=== PATIENT | male | born 1945 | race Caucasian/White ===

== ENCOUNTER → 2022-02-09 | Day surgery (SDC) | payer OTHER ==
--- NOTE | 2022-02-09 11:13 | RAD REPORT ---
EXAM DESCRIPTION: US - Extremity Nonvascular Limited - 02/09/2022 10:51 am CLINICAL HISTORY: E04.1, D44.0, R05.3, Z85.71 COMPARISON: Thyroid Para Parotid Gland dated 01/15/2022 TECHNIQUE: Preprocedure ultrasound of the neck. FINDINGS: The patient was referred for ultrasound-guided fine-needle aspiration of the 4-5 cm left t hyroid lesion detected on 01/15/2022 study. Real-time pre-procedure radiologist directed ultrasound was performed. Unfortunately, in the deep pos ition of this lesion along with the patient's body habitus, precluded adequate visualization of the l esion for safe FNA procedure. This was explained to the patient in detail. IMPRESSION: The patient has left thyroid lesion is quite deep in position and could not be safely ac cessed under ultrasound-guided FNA.
== END ==
LOC: FNA 09:58
PROVIDERS: ATTEND Otolaryngology
DX: E04.1 Nontoxic single thyroid nodule (principal); D44.0 Neoplasm of uncertain behavior of thyroid gland; R05.3 Chronic cough; Z85.71 Personal history of Hodgkin lymphoma
CPT/HCPCS: 76882

== ENCOUNTER 2024-08-20 09:11 | Inpatient (IN) | payer OTHER ==
--- OUTSIDE RECORDS SUMMARY | 2024-08-20 09:14 | XMS REPORT | Clinical Summary ---
Author Name Unknown Organization [facility] Address [address] [place] [address] Care Team Providers Care Time Piece Repairer Name Role Phone Silverio Webster Unavailable [phone] Cody Perez MD Unavailable [phone] Maranda Perales MD Primary Care Provider + Felicia Avila MD Unavailable [phone] Bethany Amezcua MD Unavailable Dylan Sam MD Unavailable [phone] Allergies Active Allergy Reactions Criticality Noted Date Comments Hydrochlorothiazide Rash Medium 05/25/2017 pruritis Medications * This document contains information received from the source organization and may not represent a complete record from that organization. amLODIPine (NORVASC) 5 mg tablet Take 1 tablet (5 mg) by mouth daily. 022 Active aspirin 81 mg chewable tablet Chew and swallow 1 tablet (81 mg) by mouth daily. Active cholecalciferol, vitamin D3, 50 mcg (2,000 unit) capsule Take 1 capsule by mouth daily. Active glucosamine HCl 750 mg tab Take 1 tablet by mouth twice daily. Active levothyroxine (SYNTHROID, LEVOTHROID) 100 mcg tablet Take 88 mcg by mouth daily. 024 Active losartan (COZAAR) 100 mg tablet Take 1 tablet (100 mg) by mouth daily. 020 Active metoprolol tartrate (LOPRESSOR) 25 mg tablet Take 1 tablet (25 mg) by mouth twice daily. 020 Active UNABLE TO FIND Fish oil Activ e UNABLE TO FIND Vitamin K is with his Vitamin D Active relugolix (Orgovyx) 120 mg tabletIndications :Adenocarcinoma of prostate Take 3 tablets (360 mg) by mouth for 1 day, then take 1 tablet (120 mg) once daily thereafter. 30 tablet 3 08/02/19 25 8:23 AM REFRIGERATION OPERATOR 024 Active Additional Information Patient taking differently: 120 mg oral Daily, Take 3 tablets (360 mg) by mouth for 1 day, then take 1 tablet (120 mg) once daily thereafter., Reason: Other, Reported on 08/15/2024 ibuprofen (ADVIL,MOTRIN) 200 mg tablet Take 1 tablet (200 mg) by mouth every 8 (eight) hours as needed for moderate pain. Active darolutamide (Nubeqa) 300 mg tabletIndications :Adenocarcinoma of prostate Take 2 tablets (600 mg) by mouth twice daily. 120 tablet 3 08/02/19 25 8:23 AM REFRIGERATION OPERATOR 025 Active polyethylene glycol (Miralax) 17 gram/dose powderIndications :Adenocarcinoma of prostate Take 17 g by mouth daily. 238 g 3 025 Active OLANZapine (ZyPREXA) 5 mg tabletIndications :Adenocarcinoma of prostate,Nausea,L oss of appetite Take 1 tablet (5 mg) by mouth at bedtime. 30 tablet 3 025 Active ondansetron (ZOFRAN-ODT) 8 mg disintegrating tabletIndications :Adenocarcinoma of prostate,Nausea Dissolve 1 tablet (8 mg) on the tongue every 8 (eight) hours as needed for nausea. 30 tablet 3 025 Active predniSONE (DELTASONE) 5 mg tabletIndications :Adenocarcinoma of prostate Take 1 tablet (5 mg) by mouth twice daily. 60 tablet 3 025 Active HYDROcodone-aceta minophen (NORCO) 10 mg-325 mg per tabletIndications :Neoplasm related pain (acute) (chronic) Take 1 tablet by mouth every 6 (six) hours as needed for moderate pain. 90 tablet 025 Active senna (Senna Lax) 8.6 mg tabletIndications :Neoplasm related pain (acute) (chronic) Take 1 tablet by mouth daily as needed for constipation. 120 tablet 025 Active gabapentin (NEURONTIN) 300 mg capsuleIndication s:Neoplasm related pain (acute) (chronic) TAKE 1 CAPSULE(300 MG) BY MOUTH AT BEDTIME 30 capsule 025 Active furosemide (Lasix) 20 mg tabletIndications :Edema, not otherwise specified Take 2 tablets (40 mg) by mouth daily as needed for edema. 120 tablet 3 025 Active albuterol (VENTOLIN HFA,PROAIR HFA) 90 mcg/puff inhaler Inhale 1 puff by mouth as needed. 2024 Discontinued(T herapy completed) relugolix (Orgovyx) 120 mg tabletIndications :Adenocarcinoma of prostate Take 3 tablets (360 mg) by mouth for 1 day, then take 1 tablet (120 mg) once daily thereafter. 30 tablet 3 024 2023 Discontinued(T herapy completed) HYDROcodone-aceta minophen (NORCO) 10 mg-325 mg per tablet Take 1 tablet by mouth every 6 (six) hours as needed for moderate pain. 025 2024 HYDROcodone-aceta minophen (NORCO) 10 mg-325 mg per tabletIndications :Neoplasm related pain (acute) (chronic) Take 1 tablet by mouth every 6 (six) hours as needed for moderate pain. 30 tablet 025 2024 Discontinued(R eorder) HYDROcodone-aceta minophen (NORCO) 10 mg-325 mg per tabletIndications :Neoplasm related pain (acute) (chronic) Take 1 tablet by mouth every 6 (six) hours as needed for moderate pain. 30 tablet 025 2024 Discontinued(R eorder) gabapentin (Neurontin) 300 mg capsuleIndication s:Neoplasm related pain (acute) (chronic) Take 1 capsule (300 mg) by mouth at bedtime. 30 capsule 025 2024 Discontinued furosemide (Lasix) 20 mg tabletIndications :Edema, not otherwise specified Take 1 tablet (20 mg) by mouth daily as needed for edema. 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 Date Type Department Care Team Description 08/15/2024 10:00 AM CDT Follow-Up MD [facility] [place] - Genitourinary Oncology [address] [place] [address] Maranda Perales MD Adenocarcinoma of prostate (Primary Dx); Edema, not otherwise specified; 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; Hypertension; Type 2 diabetes mellitus, not otherwise specified; 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; Benign hypertension; Acquired hypothyroidism 08/15/2024 Travel 07/31/2024 Specialty Pharmacy [facility] AMB RX SPEC [facility] [address] [place] [address] Candelario Zamora, J CarlosD Refill Coordination Outreach - darolutamide (Nubeqa), relugolix (Orgovyx) for Prostate Cancer 07/28/2024 Telephone [facility] [address] [place] [address], 7th [place] [address] Eileen Cummins Genetic Counseling (Follow up) 07/25/2024 10:30 AM REFRIGERATION OPERATOR Infusion MD [facility] [place] - Infusion [address] [place] [address] Natasha Rey, Dheeraj Tinoco, RN Adenocarcinoma of prostate (Primary Dx) 07/25/2024 9:30 AM REFRIGERATION OPERATOR Follow-Up [facility] - Genitourinary Oncology [address] [place] [address] Natasha Rey APRN Adenocarcinoma of prostate (Primary Dx); Edema, not otherwise specified; 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; Benign hypertension; Obstructive sleep apnea syndrome; 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; Type 2 diabetes mellitus with hyperglycemia; Acquired hypothyroidism; Dyslipidemia; Elevation of levels of alanine transaminase (ALT); Fatigue; Nausea 07/25/2024 Orders Only [facility] - Oncology [address] [place] [address], [facility] [place] [address] Maranda Perales MD 07/25/2024 Travel 07/20/2024 2:00 PM REFRIGERATION OPERATOR Telemedicine [facility] Oncology [address] [place] [address], [facility] [place] [address] Dylan Sam MD Adenocarcinoma of prostate 07/20/2024 Orders Only [facility] Oncology [address] [place] [address], [facility] [place] [address] Eileen Cummins Adenocarcinoma of prostate (Primary Dx) 07/14/[address] [address] Amadou Odonnell, RN 07/14/[address] [address] Amadou Odonnell, RN 07/06/2024 Orders Only [facility] Oncology [address] [place] [address], [address] [place] [phone] Cristobal Easley MD Neoplasm related pain (acute) (chronic) 07/05/2024 Telephone [facility] - Infusion [address] [place] [address] Vanesa Walsh, SALAS 07/05/2024 Specialty Pharmacy [facility] AMB RX SPEC [facility] [address] [place] [address] Cynthia Vu, [facility] Refill Coordination Outreach - relugolix (Orgovyx) for Prostate Cancer 07/04/2024 11:00 AM REFRIGERATION OPERATOR Infusion MD [place] - Infusion [address] [place] [address] Natasha Rey, Vanesa Arguello RN Adenocarcinoma of prostate (Primary Dx) 07/04/2024 10:30 AM REFRIGERATION OPERATOR Follow-Up MD [facility] [place] - Genitourinary Oncology [address] [place] [address] Natasha Rey APRN Adenocarcinoma of prostate (Primary Dx); Nausea; Loss of appetite; 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; Benign hypertension; Obstructive sleep apnea syndrome; 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; Type 2 diabetes mellitus, not otherwise specified; Acquired hypothyroidism; Dyslipidemia; Elevation of levels of alanine transaminase (ALT); Fatigue 07/04/2024 Orders Only [facility] Oncology [address] [place] [address], 7th [place] [address] Alton Brush [facility] 07/04/2024 Travel 07/01/2024 Orders Only [facility] - Oncology [address] [place] [address], 7th [place] [address] Maranda Perales MD 06/29/2024 Specialty Pharmacy [facility] AMB RX SPEC [facility]B [address] [place] [address] Yvonne Sun [facility] 06/28/2024 3:30 PM REFRIGERATION OPERATOR Telemedicine [facility] Oncology [address] [place] [address], 7th [place] [address] Natasha Rey APRN Siddiqui, Bilal Ahmed, MD Adenocarcinoma of prostate (Primary Dx) 06/28/2024 10:00 AM REFRIGERATION OPERATOR Follow-Up [facility], 9th [place] [address] Felicia Avila MD Neoplasm related pain (acute) (chronic) (Primary Dx); Metabolic syndrome 06/28/2024 8:47 AM REFRIGERATION OPERATOR - 06/28/2024 11:59 PM REFRIGERATION OPERATOR Hospital Encounter [facility] [address] [place] [address] Natasha Rey, VALERIE Adenocarcinoma of prostate; Elevation of levels of alanine transaminase (ALT) Discharge Disposition: Home 06/28/2024 Orders Only [facility] Oncology [address] [place] [address], 7th [place] [address] Natasha Rey APRN 06/28/2024 Travel 06/22/2024 Orders Only [facility] Oncology [address] [place] [address], 7th [place] [address] Natasha Rey APRN Elevation of levels of alanine transaminase (ALT) (Primary Dx) 06/21/[address] [address] Amadou Odonnell, RN 06/14/2024 Documentation [facility] [address] [place] [address], 9th [place] [address] Kristy Stevenson, RN 06/01/2024 Specialty Pharmacy [facility] AMB RX SPEC ACB [address] [place] [phone] Candelario Zamora, PharmD Refill Coordination Outreach - relugolix (Orgovyx) for Prostate Cancer 05/30/2024 10:00 AM REFRIGERATION OPERATOR Follow-Up [facility] - Genitourinary Oncology [address] [place] [address] Maranda Perales MD 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 (Primary Dx); Adenocarcinoma of prostate; Benign hypertension; 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; Acquired hypothyroidism; Dyslipidemia; Elevation of levels of alanine transaminase (ALT) 05/30/2024 Travel 05/17/2024 1:00 PM REFRIGERATION OPERATOR Ancillary Procedure [address] [address] Felicia Avila MD Metabolic syndrome 05/17/2024 Documentation [facility] [address] [place] [address], 9th [place] [address] Kristy Stevenson RN 05/17/2024 Travel 05/11/2024 9:00 AM REFRIGERATION OPERATOR Ancillary Procedure [address] [address] Adenocarcinoma of prostate 05/11/2024 Travel 05/10/2024 3:00 PM REFRIGERATION OPERATOR Consult [facility] [address] [place] [address], 9th [place] [address] Felicia Avila MD Metabolic syndrome (Primary Dx); Adenocarcinoma of prostate 05/10/2024 Travel 05/08/2024 Specialty Pharmacy [facility] AMB RX SPEC ACB [address] [place] [address] Candelario Zamora, PharmD Set up Initial Fill for Prostate Cancer, Benefits Investigation for Prostate Cancer 05/03/[address] [address] Amadou Odonnell RN 05/02/2024 10:00 AM REFRIGERATION OPERATOR Office Visit [facility] - Genitourinary Oncology [address] [place] [address] Maranda Perales MD Adenocarcinoma of prostate (Primary Dx); Benign hypertension; Obstructive sleep apnea syndrome; Acquired hypothyroidism; Elevation of levels of alanine transaminase (ALT); 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; Serum creatinine above reference range; Dyslipidemia; 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 05/02/2024 8:30 AM REFRIGERATION OPERATOR NPR MDA PATIENT ACCESS Maranda Perales MD 05/02/2024 Travel 04/19/2024 Orders Only [facility] - Oncology [address] [place] [address], 7th [place] [address] Natasha Rey, WEB PRESSMAN Adenocarcinoma of prostate (Primary Dx) 04/19/2024 Orders Only [facility] - Oncology [address] [facility], 7th [place] [address] Natasha Rey, WEB PRESSMAN 03/21/2024 1:55 AM CDT Ancillary Procedure [facility] [address] [place] [address] Maranda Perales MD Cancer 03/01/2024 Lab Requisition [facility] Juan Francisco Herrera MD Huttenbach, Yve Thaller, MD 02/28/2024 8:00 PM CDT Ancillary Procedure [facility] [address] [place] [address] Maranda Perales MD Cancer 02/17/2024 8:05 PM CDT Ancillary Procedure [facility] [address] [place] [id number] Cancer 02/17/2024 8:00 PM CDT Ancillary Procedure [facility] [address] [place] [address] Cancer 02/16/2024 11:20 PM CDT Ancillary Procedure [facility] [address] [place] [address] Cancer after 08/21/2023 Immunizations Name Administration Dates Next Due Influenza, Unspecified 03/22/2024 Moderna SARS-CoV-2 Monovalen t Booster Vaccination (50 mcg/0.5 mL) 03/22/2024 Pneumococcal Conjugate 20-valent 02/16/2023 Surgical History Surgery Date Site/Laterality Comments LYMPH NODE DISSECTION 05/31/1963 - 05/30/1964 Right THYROIDECTOMY, PARTIAL 05/31/2022 - 05/30/2023 KNEE CARTILAGE SURGERY 05/31/2007 - 05/30/2008 Left TONSILLECTOMY as a child COLONOSCOPY Medical History Medical History Date Comments Hypertension Pneumonia 04/2018 Dependence on supplemental oxygen Dependence on continuous pos itive airway pressure ventilation Polyp of colon Gallstone 02/2024 Disorder of thyroid gland 2020 Malignant neoplasm of prostate 2018 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 acciden t Daughter 1 Alive Daughter 2 (Age 4m) d. rare di sease Father (Age 95) Granddaughter 1 Alive Granddaughter 2 Alive Grandson Alive Maternal Aunt 1 Alive Maternal Aunt 2 (Age 80s) Maternal Grandfather Maternal Grandmother (Age 90) Mother (Age 90) Nephew Alive Niece Alive Paternal Aunt 1 (Age 80s) Paternal Aunt 2 (Age 80s) Paternal Cousin 1 (Age 80) Paternal Cousin 2 Breast can cer was cause of Paternal Cousin 3 Paternal Grandfather (Age 82) Paternal Grandmother (Age 90) Paternal Uncle (Age 56) d. accid ent Sister Alive Son Alive Social History Tobacco Use Types Packs/Day Years Used Date Smoking Tobacco: Former Pipe 1 2011 Cigars Smokeless Tobacco: Never Alcohol Use Standard Drinks/Week Comments Yes 0 (1 standard drink = 0.6 oz pur e alcohol) Sex and Gender Information Value Date Recorded Sex Assigned at Not on file Legal Sex Male 2:19 PM CDT Gender Identity Not on file Sexual Orientation Not on file Obstetrics History Last Filed Vital Signs Vital Sign Reading Time Taken Comments Blood Pressure 102/67 08/15/2024 10:07 AM CDT Pulse 85 08/15/2024 10:07 AM CDT Temperature 34.6 °C (94.3 °F) 08/15/2024 10:07 AM C DT Respiratory Rate 17 08/15/2024 10:07 AM CDT Oxygen Saturation 91% 08/15/2024 10:07 AM CDT Inhaled Oxygen Concentration - - Weight 136.9 kg (301 lb 13 oz) 08/15/2024 10:07 AM CDT Height 168 cm (5' 6.14") 08/15/2024 10:07 AM CDT Body Mass Index 48.5 08/15/2024 10:07 AM CDT Plan of Treatment Upcoming Encounters Date Type Department Care Team (Late st Contact Info) Description 08/29/2024 12:00 PM CDT Lab MD [facility] [address] [place] [phone] Natasha Rey, WEB PRESSMAN [address] [place] [phone] [email or web address] 08/29/2024 1:00 PM CDT Follow-Up MD [facility] - Genitourinary Oncology [address] [place] [address] Maranda Perales MD [address] [place] [phone] [email or web address] 09/05/2024 9:00 AM CDT Lab MD [facility] [address] [address] Maranda Perales MD [address] [place] [phone] [email or web address] 09/05/2024 10:00 AM CDT Follow-Up MD [facility] - Gen[facility]inary Oncology [address] [place] [address] Maranda Perales MD [address] [place] [phone] [email or web address] 09/05/2024 11:00 AM CDT Infusion MD [facility] [place] - Infusion [address] [place] [address] Maranda Perales MD [facility] [place] [address] [email or web address] Maintenance Due Date Last Done Comments COVID-19 Vaccine (#1) 04/19/2024 03/22/2024 Pneumococcal Vaccine: 50+ Years Completed 3 Influenza Vaccine Completed 03/22/2024 Procedures Procedure Name Priority Date/Time Associated Diagnosis Comments .CBC Routine 08/15/2024 8:58 AM CDT Adenocarcinoma of prostate TESTOSTERONE LEVEL Routine 08/15/2024 8: 58 AM CDT Adenocarcinoma of prostate PROSTATE SPECIFIC ANTIGEN Routine 08/15/2024 8:58 AM CDT Adenocarcinoma of prostate LACTATE DEHYDROGENASE Routine 08/15/2024 8:58 AM CDT Adenocarcinoma of prostate PHOSPHORUS LEVEL Routine 08/15/2024 8:58 AM CDT Adenocarcinoma of prostate MAGNESIUM LEVEL Routine 08/15/2024 8:58 AM CDT Adenocarcinoma of prostate COMPLETE BLOOD COUNT W/ DIFFERENTIAL Routine 08/15/2024 8:58 AM CDT Adenocarcinoma of prostate COMPREHENSIVE METABOLIC PANEL Routine 08/15/2024 8:58 AM CDT Adenocarcinoma of prostate .CBC Routine 07/25/2024 8:19 AM REFRIGERATION OPERATOR Adenocarcinoma of prostate ZINVITAE Routine 07/25/2024 8:19 AM REFRIGERATION OPERATOR Adenocarcinoma of prostate PROSTATE SPECIFIC ANTIGEN Routine 07/25/2024 8:19 AM REFRIGERATION OPERATOR Adenocarcinoma of prostate LACTATE DEHYDROGENASE Routine 07/25/2024 8:19 AM REFRIGERATION OPERATOR Adenocarcinoma of prostate PHOSPHORUS LEVEL Routine 07/25/2024 8:19 AM REFRIGERATION OPERATOR Adenocarcinoma of prostate MAGNESIUM LEVEL Routine 07/25/2024 8:19 AM REFRIGERATION OPERATOR Adenocarcinoma of prostate COMPLETE BLOOD COUNT W/ DIFFERENTIAL Routine 07/25/2024 8:19 AM REFRIGERATION OPERATOR Adenocarcinoma of prostate COMPREHENSIVE METABOLIC PANEL Routine 07/25/2024 8:19 AM REFRIGERATION OPERATOR Adenocarcinoma of prostate .CBC Routine 07/04/2024 9:17 AM REFRIGERATION OPERATOR Adenocarcinoma of prostate AMYLASE LEVEL Routine 07/04/2024 9:17 AM REFRIGERATION OPERATOR Adenocarcinoma of prostate LIPASE LEVEL Routine 07/04/2024 9:17 AM REFRIGERATION OPERATOR Adenocarcinoma of prostate TESTOSTERONE LEVEL Routine 07/04/2024 9: 17 AM REFRIGERATION OPERATOR Adenocarcinoma of prostate PROSTATE SPECIFIC ANTIGEN Routine 07/04/2024 9:17 AM REFRIGERATION OPERATOR Adenocarcinoma of prostate PHOSPHORUS LEVEL Routine 07/04/2024 9:17 AM REFRIGERATION OPERATOR Adenocarcinoma of prostate MAGNESIUM LEVEL Routine 07/04/2024 9:17 AM REFRIGERATION OPERATOR Adenocarcinoma of prostate COMPREHENSIVE METABOLIC PANEL Routine 07/04/2024 9:17 AM REFRIGERATION OPERATOR Adenocarcinoma of prostate COMPLETE BLOOD COUNT W/ DIFFERENTIAL Routine 07/04/2024 9:17 AM REFRIGERATION OPERATOR Adenocarcinoma of prostate .CBC Routine 06/28/2024 8:55 AM REFRIGERATION OPERATOR Adenocarcinoma of prostate LIPASE LEVEL Routine 06/28/2024 8:55 AM REFRIGERATION OPERATOR Elevation of levels of alanine transaminase (ALT) AMYLASE LEVEL Routine 06/28/2024 8:55 AM REFRIGERATION OPERATOR Elevation of levels of alanine transaminase (ALT) TESTOSTERONE LEVEL Routine 06/28/2024 8: 55 AM REFRIGERATION OPERATOR Adenocarcinoma of prostate PROSTATE SPECIFIC ANTIGEN Routine 06/28/2024 8:55 AM REFRIGERATION OPERATOR Adenocarcinoma of prostate PHOSPHORUS LEVEL Routine 06/28/2024 8:55 AM REFRIGERATION OPERATOR Adenocarcinoma of prostate MAGNESIUM LEVEL Routine 06/28/2024 8:55 AM REFRIGERATION OPERATOR Adenocarcinoma of prostate COMPREHENSIVE METABOLIC PANEL Routine 06/28/2024 8:55 AM REFRIGERATION OPERATOR Adenocarcinoma of prostate COMPLETE BLOOD COUNT W/ DIFFERENTIAL Routine 06/28/2024 8:55 AM REFRIGERATION OPERATOR Adenocarcinoma of prostate .CBC Routine 05/30/2024 8:34 AM REFRIGERATION OPERATOR Adenocarcinoma of prostate TESTOSTERONE LEVEL Routine 05/30/2024 8: 34 AM REFRIGERATION OPERATOR Adenocarcinoma of prostate PROSTATE SPECIFIC ANTIGEN Routine 05/30/2024 8:34 AM REFRIGERATION OPERATOR Adenocarcinoma of prostate PHOSPHORUS LEVEL Routine 05/30/2024 8:34 AM REFRIGERATION OPERATOR Adenocarcinoma of prostate MAGNESIUM LEVEL Routine 05/30/2024 8:34 AM REFRIGERATION OPERATOR Adenocarcinoma of prostate COMPREHENSIVE METABOLIC PANEL Routine 05/30/2024 8:34 AM REFRIGERATION OPERATOR Adenocarcinoma of prostate COMPLETE BLOOD COUNT W/ DIFFERENTIAL Routine 05/30/2024 8:34 AM REFRIGERATION OPERATOR Adenocarcinoma of prostate US LIVER Routine 05/17/2024 1:58 PM REFRIGERATION OPERATOR Metabolic syndrome US LIVER ELASTOGRAPHY Routine 05/17/2024 1:58 PM REFRIGERATION OPERATOR Metabolic syndrome PETCT F18 PSMA PYL (PIFLUFOLASTAT) WITH CONTRAST Routine 05/11/2024 10:57 AM REFRIGERATION OPERATOR Adenocarcinoma of prostate .CBC Routine 05/02/2024 8:41 AM REFRIGERATION OPERATOR Adenocarcinoma of prostate VITAMIN D 25 HYDROXY LEVEL Routine 05/02/2024 8:41 AM REFRIGERATION OPERATOR Adenocarcinoma of prostate THYROID STIMULATING HORMONE Routine 05/02/2024 8:41 AM REFRIGERATION OPERATOR Adenocarcinoma of prostate TESTOSTERONE LEVEL Routine 05/02/2024 8: 41 AM REFRIGERATION OPERATOR Adenocarcinoma of prostate PROSTATE SPECIFIC ANTIGEN Routine 05/02/2024 8:41 AM REFRIGERATION OPERATOR Adenocarcinoma of prostate PHOSPHORUS LEVEL Routine 05/02/2024 8:41 AM REFRIGERATION OPERATOR Adenocarcinoma of prostate MAGNESIUM LEVEL Routine 05/02/2024 8:41 AM REFRIGERATION OPERATOR Adenocarcinoma of prostate LIPID PANEL Routine 05/02/2024 8:41 AM REFRIGERATION OPERATOR Adenocarcinoma of prostate LACTATE DEHYDROGENASE Routine 05/02/2024 8:41 AM REFRIGERATION OPERATOR Adenocarcinoma of prostate HEMOGLOBIN A1C Routine 05/02/2024 8:41 AM REFRIGERATION OPERATOR Adenocarcinoma of prostate COMPREHENSIVE METABOLIC PANEL Routine 05/02/2024 8:41 AM REFRIGERATION OPERATOR Adenocarcinoma of prostate COMPLETE BLOOD COUNT W/ DIFFERENTIAL Routine 05/02/2024 8:41 AM REFRIGERATION OPERATOR Adenocarcinoma of prostate OSI CT ABDOMEN AND PELVIS Routine 02/24/2024 2:29 AM CDT Cancer OSI PET CT SKULL TO MID THIGH Routine 01/14/2024 1:08 PM CDT Cancer after 08/21/2023 Results * (ABNORMAL) .CBC (08/15/2024 8:58 AM CDT) Only the most recent of6 resultswithin the time period is included. White Blood Cell 9.3 4.1 - 10.5 K/uL 08/15/2024 9:07 AM CDT [place] Red Blood Cell 4.22(L) 4.30 - 6.04 M/uL 08/15/2024 9:07 AM [facility] Hemoglobin 13.3 13.3 - 17.4 g/dL 08/15/2024 9:07 AM [facility] Hematocrit 39.7 39.5 - 51.8 % 08/15/2024 9:07 AM [facility] Mean Cell Volume 94 82 - 99 fL 08/15/2024 9:07 AM [facility] Mean Cell Hemoglobin 31.5 26.6 - 33.2 pg 08/15/2024 9:07 AM [facility] Mean Cell Hemoglobin Concentration 33.5 31.1 - 35.2 g/dL 08/15/2024 9:07 AM [facility] RDW-SD 51.0(H) 37.5 - 49.7 fL 08/15/2024 9:07 AM [facility] Red Cell Diameter Width 14.6 11.6 - 15.5 % 08/15/2024 9:07 AM [facility] Platelet 221 160 - 397 K/uL 08/15/2024 9:07 AM [facility] Mean Platelet Volume 10.5 9.1 - 12.6 fL 08/15/2024 9:07 AM [facility] Neutrophil % 81.7(H) 43.2 - 72.7 % 08/15/2024 9:07 AM [facility] Lymphocyte % 7.9(L) 16.8 - 46.2 % 08/15/2024 9:07 AM [facility] Monocyte % 6.4 5.1 - 12.5 % 08/15/2024 9:07 AM [facility] Eosinophil % 2.4 0.4 - 6.3 % 08/15/2024 9:07 AM [facility] Basophil % 0.4 0.2 - 1.4 % 08/15/2024 9:07 AM [facility] IGRE % 1.2 0.1 - 1.5 % 08/15/2024 9:07 AM [facility] Comment:The IGRE% includes M etamyelocytes, Myelocytes and Promyelocytes. Neutrophil Abs 7.63(H) 1.95 - 7.25 K/uL 08/15/2024 9:07 AM [facility] Lymphocyte Abs 0.74(L) 1.01 - 3.24 K/uL 08/15/2024 9:07 AM [facility] Monocyte Abs 0.60 0.24 - 0.85 K/uL 08/15/2024 9:07 AM [facility] Eosinophil Abs 0.22 0.02 - 0.50 K/uL 08/15/2024 9:07 AM [facility] Basophil Abs 0.04 0.02 - 0.09 K/uL 08/15/2024 9:07 AM [facility] IG Abs 0.11 0.01 - 0.12 K/uL 08/15/2024 9:07 AM [facility] Blood Peripheral blood specimen / Unknown Venipuncture / Unknown 08/15/2024 8:58 AM CDT 08/15/2024 8:59 AM CDT us Natasha Rey WEB PRESSMAN LAB BLOOD ORDERABLE S Final Result [facility] [address] [facility], [facility] [address] [place] [address] * (ABNORMAL) Comprehensive Metabolic Panel (08/15/2024 8:58 AM CDT) Only the most recent of6 resultswithin the time period is included. Bilirubin Total 0.7 0.0 - 1.2 mg/dL 08/15/2024 9:27 AM [facility] Comment:Indocyanine Green (I CG) may cause falsely elevated bilirubin results. Total and direct bilirubin must not be measured from samples containing indocyanine green. False elevation of total bilirubin can be seen in patients with IgG concentrations above 28 g/L. eGFR 71 >=60 mL/min/1. 73 sq. m 08/15/2024 9:27 AM [facility] Comment: The eGFRcr is calculated with the 202 CKD-EPI creatinine equation using creatinine, patient's age, and sex for adults 18 years of age and older. Other factors, especially muscle mass, may affect accuracy and need to be considered. According to the Kidney Disease: Improving Global Outcomes (KDIGO) CKD Work Group 2012 Clinical Practice Guideline, chronic kidney disease (CKD) is defined as the abnormalities of kidney structure or function, present for more than 3 months, with implications for health. CKD should be classified by cause, GFR category, and albuminuria category. KDIGO guidelines provide the following GFR categories. Stage / Description / GFR mL/min/1.73 m2: G1* / Normal or high / >= 90 G2* / Mildly decreased / 60-89 G3a / Mildly to moderately decreased / 45-59 G3b / Moderately to severely decreased / 30-44 G4 / Severely decreased / 15-29 G5 / Kidney failure / <15 *In the absence of evidence of kidney damage, neither G1 nor G2 fulfill criteria for CKD. Tot Protein 6.9 6.4 - 8.3 gm/dL 08/15/2024 9:27 AM [facility] Calcium Level Total 9.3 8.2 - 10.2 mg/dL 08/15/2024 9:27 AM [facility] Alkaline Phosphatase 420(H) 40 - 129 U/L 08/15/2024 9:27 AM [facility] Albumin Level 3.8 3.5 - 5.2 gm/dL 08/15/2024 9:27 AM [facility] AST 37 <=40 U/L 08/15/2024 9:27 AM [facility] ALT 33 <=41 U/L 08/15/2024 9:27 AM [facility] Sodium Level 134(L) 136 - 145 mmol/L 08/15/2024 9:27 AM [facility] Potassium Level 4.2 3.4 - 4.5 mmol/L 08/15/2024 9:27 AM [facility] Chloride 96(L) 98 - 107 mmol/L 08/15/2024 9:27 AM [facility] CO2 28 22 - 29 mmol/L 08/15/2024 9:27 AM [facility] Anion Gap 10 4 - 14 mmol/L 08/15/2024 9:27 AM [facility] Creatinine 1.08 0.67 - 1.17 mg/dL 08/15/2024 9:27 AM [facility] BUN 19 6 - 23 mg/dL 08/15/2024 9:27 AM [facility] Glucose Level 114(H) 70 - 99 mg/dL 08/15/2024 9:27 AM CDT [place] Comment: Effective 12/25/15, the glucose reference intervals have been updated based on [place] [employer] guidelines (Standards of Medical Care in Diabetes 2016. Diabetes Care 2016; 39: S13-S22). Fasting blood glucose: Normal: 70-99 mg/dL Impaired fasting glucose (increased risk for diabetes or pre-diabetes): 100-125 mg/dL Diabetes mellitus: >/=126 mg/dL Random blood glucose: Normal: 70-199 mg/dL Note: Random glucose >100 mg/dL is associated with increased risk for diabetes. Blood Peripheral blood specimen / Unknown Venipuncture / Unknown 08/15/2024 8:58 AM CDT 08/15/2024 8:59 AM CDT us Natasha Rey [employer] LAB BLOOD ORDERABLE S Final Result [address] [address] * (ABNORMAL) Testosterone (08/15/2024 8:58 AM CDT) Only the most recent of5 resultswithin the time period is included. Testosterone Total 25(L) 193 - 740 ng/dL 08/15/2024 9:52 AM CDT [place] Blood Peripheral blood specimen / Unknown Venipuncture / Unknown 08/15/2024 8:58 AM CDT 08/15/2024 8:59 AM CDT us Natasha Rey WE[employer] LAB BLOOD ORDERABLE S Final Result [address] [address] * Prostate Specific Antigen (PSA) Diagnostic (08/15/2024 8:58 AM CDT) Only the most recent of6 resultswithin the time period is included. Prostate Specific Antigen 1.2 <=4.0 ng/mL 08/15/2024 9:52 AM CDT [place] PSA Indication Diagnostic 08/15/2024 9:52 AM CDT [place] Blood Peripheral blood specimen / Unknown Venipuncture / Unknown 08/15/2024 8:58 AM CDT 08/15/2024 8:59 AM CDT Narrative [place] - 08/15/2024 9:52 AM CDT The assay is intended for use in males aged 50 years or older. Reference ranges have not been validated for patients outside those age ranges; therefore, the results should be interpreted in the context of the patient's clinical condition. Results greater than 4519 ng/mL may not be reliable due to matrix effect with extended dilution as it exceeds the homicide squad lieutenant's recommended limit. Caution should be exercised when interpreting such values and done in conjunction with clinical context. This test is measured by electrochemiluminescence immunoassay on [employer] immunoassay analyzers. Results obtained in different methods are not interchangeable. us Natasha Rey APRN LAB BLOOD ORDERABLE S Final Result Performing Organization Address City/[facility]/ZIP Co de Phone Number [address], [address] [address] * Phosphorus (08/15/2024 8:58 AM CDT) Only the most recent of6 resultswithin the time period is included. Phosphorus Level 2.9 2.5 - 4.5 mg/dL 08/15/2024 9:27 AM CDT [place] Blood Peripheral blood specimen / Unknown Venipuncture / Unknown 08/15/2024 8:58 AM CDT 08/15/2024 8:59 AM CDT Natasha Rey APRN LAB BLOOD ORDERABLE S Final Result [address], [address] [address] * Magnesium (08/15/2024 8:58 AM CDT) Only the most recent of6 resultswithin the time period is included. [facility] Magnesium Level 2.3 1.6 - 2.6 mg/dL 08/15/2024 9:27 AM CDT [place] Blood Peripheral blood specimen / Unknown Venipuncture / Unknown 08/15/2024 8:58 AM CDT 08/15/2024 8:59 AM CDT Natasha Rey APRN LAB BLOOD ORDERABLE S Final Result [address], [facility] [address] [place] [address] * (ABNORMAL) Lactate dehydrogenase (08/15/2024 8:58 AM CDT) Only the most recent of3 resultswithin the time period is included. [facility] LDH 417(H) 135 - 225 U/L 08/15/2024 9:27 AM CDT [place] Blood Peripheral blood specimen / Unknown Venipuncture / Unknown 08/15/2024 8:58 AM CDT 08/15/2024 8:59 AM CDT Narrative [place] - 08/15/2024 9:27 AM CDT Results greater than 1651 U/L may not be reliable due to matrix effect with extended dilution as it exceeds the homicide squad lieutenant's recommended limit. Caution should be exercised when interpreting such values and done in conjunction with clinical context. Natasha Rey APRN LAB BLOOD ORDERABLE S Final Result [address], [facility] [address] [place] [address] * ZINVITAE (07/25/2024 8:19 AM REFRIGERATION OPERATOR) [facility] ZINVITAE See Note 07/31/2024 7:12 AM REFRIGERATION OPERATOR IN[place] Comment:Specimen for Genetic testing was obtained, processed and sent out to the Performing Reference Laboratory. Refer to the performing lab for results. Blood Peripheral blood specimen / Unknown Venipuncture / Unknown 07/25/2024 8:19 AM REFRIGERATION OPERATOR 07/25/2024 8:19 AM REFRIGERATION OPERATOR Dylan Sam MD LAB BLOOD ORDERABLES Final Re sult [address] [place] [address], * Lipase Level (07/04/2024 9:17 AM REFRIGERATION OPERATOR) Only the most recent of2 resultswithin the time period is included. Lipase Level 38 13 - 60 U/L 07/04/2024 9:44 AM REFRIGERATION OPERATOR [place] Blood Peripheral blood specimen / Unknown Venipuncture / Unknown 07/04/2024 9:17 AM REFRIGERATION OPERATOR 07/04/2024 9:17 AM REFRIGERATION OPERATOR Narrative [place] - 07/04/2024 9:44 AM REFRIGERATION OPERATOR Reference range established based on adult population Natasha Rey APRN LAB BLOOD ORDERABLE S Final Result Performing Organization Address City/[facility]/ZIP Co de Phone Number [address] [address] * Amylase Level (07/04/2024 9:17 AM REFRIGERATION OPERATOR) Only the most recent of2 resultswithin the time period is included. Amylase Level 61 28 - 100 U/L 07/04/2024 9:44 AM REFRIGERATION OPERATOR [place] Blood Peripheral blood specimen / Unknown Venipuncture / Unknown 07/04/2024 9:17 AM REFRIGERATION OPERATOR 07/04/2024 9:17 AM REFRIGERATION OPERATOR Natasha Rey APRN LAB BLOOD ORDERABLE S Final Result Performing Organization Address City/[facility]/ZIP Co de Phone Number [address], [address] [address] * US Liver Elastography (05/17/2024 1:58 PM REFRIGERATION OPERATOR) Anatomical Region Laterality Modality Abdomen Ultrasound 05/17/2024 3:41 PM REFRIGERATION OPERATOR Impressions 05/17/2024 4:01 PM REFRIGERATION OPERATOR 1. Coarsened and heterogeneous echotexture of the liver, likely related to underlying chronic hepatic disease. There are some hepatic cysts. 2. Elastography measurements suggestive of cACLD (Compensated Advanced Chronic Liver Disease), needs further tests for confirmation. ACTIONABLE ITEMS/RECOMMENDATIONS*: See impression and findings. *An Actionable Finding is a finding that may be unrelated to the original reason for imaging but potentially actionable, meaning further investigation may be necessary. The Actionable Findings Vigilance Unit (AFVU) assists medical providers with responding to additional radiologic findings that are unexpected and potentially actionable. Narrative 05/17/2024 4:01 PM REFRIGERATION OPERATOR Examination: US LIVER, US LIVER ELASTOGRAPHY on 05/17/2024 1:58 PM. Clinical History: Metabolic syndrome. Indication: Other:, Metabolic syndrome. Comparison: No prior ultrasounds are available for comparison. However, a PET-CT dated 05/11/2024 is available for comparison. Technique: Grayscale and color Doppler ultrasound of the abdominal right upper quadrant was performed. 2D shear-wave elastography of the liver was performed at two sites. Findings: Liver: The liver is heterogeneous in echotexture with several cysts. For example, in the left hepatic lobe, there is a 2.8 x 2.2 x 2.1 cm cyst containing some likely septations. In the right hepatic lobe, there is a 2.7 x 2.3 x 2.7 cm cyst. These can be best further assessed with an MRI, liver protocol. The main portal vein is patent with appropriate directional flow measuring up to 1.0 cm in diameter. Shear wave Liver Elastography was performed at two sites: Site 1 Median shear wave velocity 2.08 m/s (V IQR/ Median 2.8%). Site 2 Median shear wave velocity 1.81 m/s (V IQR/ Median 10.9 %). This is consistent with: 1. High probability of normal ( < or = 1.3 m/s or 5kPa) 2. In the absence of other known clinical signs, rules out Compensated Advanced Chronic Liver Disease (cACLD- Metavir III or higher). If there are known clinical signs, may need further tests for confirmation ( < 1.7 m/s or 9 kPa ) 3. Suggestive of Compensated Advanced Chronic Liver Disease (cACLD- Metavir III or higher), needs further tests for confirmation ( 1.7 - 2.1 m/sec or 9 - 13 kPa ) 4. Rules in Compensated Advanced Chronic Liver Disease (cACLD- Metavir III or higher) ( 2.1 cm/s or > 13 kPa ) 5. Suggestive of Clinically significant portal hypertension ( 2.4 m/s or > 17 kPa) Biliary ducts: Measures up to 0.4 cm in diameter. Gallbladder: No gallbladder wall thickening, pericholecystic fluid, gallbladder sludge or gallstones. Pancreas: Visualized portions are unremarkable. Right kidney: Measures up to 11.1 cm in maximum length. No contour deforming masses, echogenic calculi, hydronephrosis or cysts. Procedure Note Francois Elise MD - 05/17/2024 Examination: US LIVER, US LIVER ELASTOGRAPHY on 05/17/2024 1:58 PM. Clinical History: Metabolic syndrome. Indication: Other:, Metabolic syndrome. Comparison: No prior ultrasounds are available for comparison. However, aPET-CT dated 05/11/2024 is available for comparison. Technique: Grayscale and color Doppler ultrasound of the abdominal rightupper quadrant was performed. 2D shear-wave elastography of the liver wasperformed at two sites. Findings: Liver: The liver is heterogeneous in echotexture with several cysts. Forexample, in the left hepatic lobe, there is a 2.8 x 2.2 x 2.1 cm cystcontaining some likely septations. In the right hepatic lobe, there is a2.7 x 2.3 x 2.7 cm cyst. These can be best further assessed with an MRI,liver protocol. The main portal vein is patent with appropriatedirectional flow measuring up to 1.0 cm in diameter. Shear wave Liver Elastography was performed at two sites: Site 1 Median shear wave velocity 2.08 m/s (V IQR/ Median 2.8%). Site 2 Median shear wave velocity 1.81 m/s (V IQR/ Median 10.9 %). This is consistent with: 1. High probability of normal ( < or = 1.3 m/s or 5kPa) 2. In the absence of other known clinical signs, rules out CompensatedAdvanced Chronic Liver Disease (cACLD- Metavir III or higher). If thereare known clinical signs, may need further tests for confirmation ( < 1.7m/s or 9 kPa ) 3. Suggestive of Compensated Advanced Chronic Liver Disease (cACLD-Metavir III or higher), needs further tests for confirmation ( 1.7 - 2.1m/sec or 9 - 13 kPa ) 4. Rules in Compensated Advanced Chronic Liver Disease (cACLD- MetavirIII or higher) ( 2.1 cm/s or > 13 kPa ) 5. Suggestive of Clinically significant portal hypertension ( 2.4 m/s or> 17 kPa) Biliary ducts: Measures up to 0.4 cm in diameter. Gallbladder: No gallbladder wall thickening, pericholecystic fluid,gallbladder sludge or gallstones. Pancreas: Visualized portions are unremarkable. Right kidney: Measures up to 11.1 cm in maximum length. No contourdeforming masses, echogenic calculi, hydronephrosis or cysts. IMPRESSION: 1. Coarsened and heterogeneous echotexture of the liver, likely related tounderlying chronic hepatic disease. There are some hepatic cysts. 2. Elastography measurements suggestive of cACLD (Compensated AdvancedChronic Liver Disease), needs further tests for confirmation. ACTIONABLE ITEMS/RECOMMENDATIONS*: See impression and findings. *An Actionable Finding is a finding that may be unrelated to the originalreason for imaging but potentially actionable, meaning furtherinvestigation may be necessary. The Actionable Findings Vigilance Unit(AFVU) assists medical providers with responding to additional radiologicfindings that are unexpected and potentially actionable. us Felicia Avila MD IMG US ORDERABLES Final Result * US Liver (05/17/2024 1:58 PM REFRIGERATION OPERATOR) Anatomical Region Laterality Modality Abdomen Ultrasound 05/17/2024 3:41 PM REFRIGERATION OPERATOR Impressions 05/17/2024 4:01 PM REFRIGERATION OPERATOR 1. Coarsened and heterogeneous echotexture of the liver, likely related to underlying chronic hepatic disease. There are some hepatic cysts. 2. Elastography measurements suggestive of cACLD (Compensated Advanced Chronic Liver Disease), needs further tests for confirmation. ACTIONABLE ITEMS/RECOMMENDATIONS*: See impression and findings. *An Actionable Finding is a finding that may be unrelated to the original reason for imaging but potentially actionable, meaning further investigation may be necessary. The Actionable Findings Vigilance Unit (AFVU) assists medical providers with responding to additional radiologic findings that are unexpected and potentially actionable. Narrative 05/17/2024 4:01 PM REFRIGERATION OPERATOR Examination: US LIVER, US LIVER ELASTOGRAPHY on 05/17/2024 1:58 PM. Clinical History: Metabolic syndrome. Indication: Other:, Metabolic syndrome. Comparison: No prior ultrasounds are available for comparison. However, a PET-CT dated 05/11/2024 is available for comparison. Technique: Grayscale and color Doppler ultrasound of the abdominal right upper quadrant was performed. 2D shear-wave elastography of the liver was performed at two sites. Findings: Liver: The liver is heterogeneous in echotexture with several cysts. For example, in the left hepatic lobe, there is a 2.8 x 2.2 x 2.1 cm cyst containing some likely septations. In the right hepatic lobe, there is a 2.7 x 2.3 x 2.7 cm cyst. These can be best further assessed with an MRI, liver protocol. The main portal vein is patent with appropriate directional flow measuring up to 1.0 cm in diameter. Shear wave Liver Elastography was performed at two sites: Site 1 Median shear wave velocity 2.08 m/s (V IQR/ Median 2.8%). Site 2 Median shear wave velocity 1.81 m/s (V IQR/ Median 10.9 %). This is consistent with: 1. High probability of normal ( < or = 1.3 m/s or 5kPa) 2. In the absence of other known clinical signs, rules out Compensated Advanced Chronic Liver Disease (cACLD- Metavir III or higher). If there are known clinical signs, may need further tests for confirmation ( < 1.7 m/s or 9 kPa ) 3. Suggestive of Compensated Advanced Chronic Liver Disease (cACLD- Metavir III or higher), needs further tests for confirmation ( 1.7 - 2.1 m/sec or 9 - 13 kPa ) 4. Rules in Compensated Advanced Chronic Liver Disease (cACLD- Metavir III or higher) ( 2.1 cm/s or > 13 kPa ) 5. Suggestive of Clinically significant portal hypertension ( 2.4 m/s or > 17 kPa) Biliary ducts: Measures up to 0.4 cm in diameter. Gallbladder: No gallbladder wall thickening, pericholecystic fluid, gallbladder sludge or gallstones. Pancreas: Visualized portions are unremarkable. Right kidney: Measures up to 11.1 cm in maximum length. No contour deforming masses, echogenic calculi, hydronephrosis or cysts. Procedure Note Francois Elise MD - 05/17/2024 Examination: US LIVER, US LIVER ELASTOGRAPHY on 05/17/2024 1:58 PM. Clinical History: Metabolic syndrome. Indication: Other:, Metabolic syndrome. Comparison: No prior ultrasounds are available for comparison. However, aPET-CT dated 05/11/2024 is available for comparison. Technique: Grayscale and color Doppler ultrasound of the abdominal rightupper quadrant was performed. 2D shear-wave elastography of the liver wasperformed at two sites. Findings: Liver: The liver is heterogeneous in echotexture with several cysts. Forexample, in the left hepatic lobe, there is a 2.8 x 2.2 x 2.1 cm cystcontaining some likely septations. In the right hepatic lobe, there is a2.7 x 2.3 x 2.7 cm cyst. These can be best further assessed with an MRI,liver protocol. The main portal vein is patent with appropriatedirectional flow measuring up to 1.0 cm in diameter. Shear wave Liver Elastography was performed at two sites: Site 1 Median shear wave velocity 2.08 m/s (V IQR/ Median 2.8%). Site 2 Median shear wave velocity 1.81 m/s (V IQR/ Median 10.9 %). This is consistent with: 1. High probability of normal ( < or = 1.3 m/s or 5kPa) 2. In the absence of other known clinical signs, rules out CompensatedAdvanced Chronic Liver Disease (cACLD- Metavir III or higher). If thereare known clinical signs, may need further tests for confirmation ( < 1.7m/s or 9 kPa ) 3. Suggestive of Compensated Advanced Chronic Liver Disease (cACLD-Metavir III or higher), needs further tests for confirmation ( 1.7 - 2.1m/sec or 9 - 13 kPa ) 4. Rules in Compensated Advanced Chronic Liver Disease (cACLD- MetavirIII or higher) ( 2.1 cm/s or > 13 kPa ) 5. Suggestive of Clinically significant portal hypertension ( 2.4 m/s or> 17 kPa) Biliary ducts: Measures up to 0.4 cm in diameter. Gallbladder: No gallbladder wall thickening, pericholecystic fluid,gallbladder sludge or gallstones. Pancreas: Visualized portions are unremarkable. Right kidney: Measures up to 11.1 cm in maximum length. No contourdeforming masses, echogenic calculi, hydronephrosis or cysts. IMPRESSION: 1. Coarsened and heterogeneous echotexture of the liver, likely related tounderlying chronic hepatic disease. There are some hepatic cysts. 2. Elastography measurements suggestive of cACLD (Compensated AdvancedChronic Liver Disease), needs further tests for confirmation. ACTIONABLE ITEMS/RECOMMENDATIONS*: See impression and findings. *An Actionable Finding is a finding that may be unrelated to the originalreason for imaging but potentially actionable, meaning furtherinvestigation may be necessary. The Actionable Findings Vigilance Unit(AFVU) assists medical providers with responding to additional radiologicfindings that are unexpected and potentially actionable. us Felicia Avila MD IMG US ORDERABLES Final Result * PETCT F18 PSMA PyL (Piflufolastat) with contrast (05/11/2024 10:57 AM REFRIGERATION OPERATOR) Anatomical Region Laterality Modality Whole Body Positron Emissio n Tomography (PET) 05/11/2024 4:33 PM REFRIGERATION OPERATOR Impressions 05/11/2024 4:53 PM REFRIGERATION OPERATOR 1. Multiple PSMA - avid enlarged lymph nodes in the abdomen and pelvis, some of which have increased in size, are compatible with metastatic prostate cancer. 2. Interval development of numerous foci of PSMA - avidity in the skeleton, consistent with bone metastases. ACTIONABLE ITEMS/RECOMMENDATIONS*: None. *An Actionable Finding is a finding that may be unrelated to the original reason for imaging but potentially actionable, meaning further investigation may be necessary. The Actionable Findings Vigilance Unit (AFVU) assists medical providers with responding to additional radiologic findings that are unexpected and potentially actionable. Narrative 05/11/2024 4:53 PM REFRIGERATION OPERATOR FULL RESULT: Examination: F-18 Piflufolastat/PSMA PyL PET/CT with contrast, 05/11/2024 10:57 AM Clinical History: 79-year-old male with prostate cancer treated with radiation and systemic therapy. Indication: Restaging study for subsequent treatment strategy Comparison: Outside PSMA PET/CT dated 01/14/2024 Technique: F-18 Piflufolastat/PSMA PyL 9.2 mCi was administered intravenously via the left antecubital fossa. Following an approximately 60 minute delay, PET/CT imaging was performed from the proximal thighs to the skull vertex. CT scanning with intravenous contrast was performed for attenuation correction, image registration, and diagnosis, with scan parameters optimized to minimize radiation exposure to the patient. SUV measurements are reported as maximum SUV based on body weight unless otherwise specified. FINDINGS: Head and Neck: Expected physiologic radiotracer uptake is seen in the lacrimal glands and salivary glands. No abnormal PSMA - avidity is visualized in the brain. The sinuses are well aerated. No lymphadenopathy is identified in the neck. Chest: Stable fibrotic changes are visible in the lungs with an upper lobe predominance and some expected mild radiotracer uptake no distinct lung nodules are noted. No lymphadenopathy is present in the mediastinum, trey, or axillae. There is no pleural nor pericardial effusion. Abdomen and Pelvis: The radiotracer uptake in the prostate gland is heterogeneous without clear focal PSMA - avidity. There are multiple PSMA - avid lymph nodes in the para-aortic chains and pelvis, some of which have increased in size. For example, a proximal left common iliac node now measures 2.2 x 2.9 cm with SUV of 6.8 compared to 1.7 x 2.5 cm (image 214 versus 205), and a left external iliac node now measures 2.6 x 3.6 cm with SUV of of 6.3 compared to 1.8 x 2.8 cm (image 234 versus 226). Multiple hypoattenuating findings in the liver are consistent with benign cysts. There are layering calcified gallstones. A small right renal cyst is visible. Evaluation of the pancreas, adrenal glands, and left kidney is unremarkable. The appearance of the unenhanced bowel is within physiologic limits. Musculoskeletal: Numerous foci of PSMA - avidity are now noted within the skeleton, consistent with bone metastases. As a few examples, radiotracer uptake in the inferior left scapula has SUV of 8.2 (image 130), a focus within C2 has SUV of 12.0 (image 57), and uptake in the left posterior iliac bone has SUV of 10.5 (image 225). Procedure Note Jessica De La Torre MD - 05/11/2024 FULL RESULT: Examination: F-18 Piflufolastat/PSMA PyL PET/CT with contrast, 0:57 AM Clinical History: 79-year-old male with prostate cancer treated withradiation and systemic therapy. Indication: Restaging study for subsequent treatment strategy Comparison: Outside PSMA PET/CT dated 01/14/2024 Technique: F-18 Piflufolastat/PSMA PyL 9.2 mCi was administeredintravenously via the left antecubital fossa. Following an vtctletbozbjg10 minute delay, PET/CT imaging was performed from the proximal thighs tothe skull vertex. CT scanning with intravenous contrast was performed forattenuation correction, image registration, and diagnosis, with scanparameters optimized to minimize radiation exposure to the patient. SUVmeasurements are reported as maximum SUV based on body weight unlessotherwise specified. FINDINGS: Head and Neck: Expected physiologic radiotracer uptake is seen in thelacrimal glands and salivary glands. No abnormal PSMA - avidity isvisualized in the brain. The sinuses are well aerated. No lymphadenopathyis identified in the neck. Chest: Stable fibrotic changes are visible in the lungs with an upper lobepredominance and some expected mild radiotracer uptake no distinct lungnodules are noted. No lymphadenopathy is present in the mediastinum, trey,or axillae. There is no pleural nor pericardial effusion. Abdomen and Pelvis: The radiotracer uptake in the prostate gland isheterogeneous without clear focal PSMA - avidity. There are multiple PSMA- avid lymph nodes in the para-aortic chains and pelvis, some of whichhave increased in size. For example, a proximal left common iliac node nowmeasures 2.2 x 2.9 cm with SUV of 6.8 compared to 1.7 x 2.5 cm (image 214versus 205), and a left external iliac node now measures 2.6 x 3.6 cm withSUV of of 6.3 compared to 1.8 x 2.8 cm (image 234 versus 226). Multiple hypoattenuating findings in the liver are consistent with benigncysts. There are layering calcified gallstones. A small right renal cystis visible. Evaluation of the pancreas, adrenal glands, and left kidney isunremarkable. The appearance of the unenhanced bowel is within physiologiclimits. Musculoskeletal: Numerous foci of PSMA - avidity are now noted within theskeleton, consistent with bone metastases. As a few examples, radiotraceruptake in the inferior left scapula has SUV of 8.2 (image 130), a focuswithin C2 has SUV of 12.0 (image 57), and uptake in the left posterioriliac bone has SUV of 10.5 (image 225). IMPRESSION: 1. Multiple PSMA - avid enlarged lymph nodes in the abdomen and pelvis,some of which have increased in size, are compatible with metastaticprostate cancer. 2. Interval development of numerous foci of PSMA - avidity in theskeleton, consistent with bone metastases. ACTIONABLE ITEMS/RECOMMENDATIONS*: None. *An Actionable Finding is a finding that may be unrelated to the originalreason for imaging but potentially actionable, meaning furtherinvestigation may be necessary. The Actionable Findings Vigilance Unit(AFVU) assists medical providers with responding to additional radiologicfindings that are unexpected and potentially actionable. Natasha Rey APRN IMG PETCT ORDERABLE S Final Result * Vitamin D 25OH (05/02/2024 8:41 AM REFRIGERATION OPERATOR) Vitamin D 25 OH 49 30 - 100 ng/mL 05/02/2024 9:32 AM [facility] Blood Peripheral blood specimen / Unknown Venipuncture / Unknown 05/02/2024 8:41 AM REFRIGERATION OPERATOR 05/02/2024 8:41 AM REFRIGERATION OPERATOR Narrative [place] - 05/02/2024 9:32 AM REFRIGERATION OPERATOR Reference Range: Deficiency: <=20 ng/mL Insufficiency: 21-29 ng/mL Sufficiency: 30-100 ng/mL Potential toxicity: >100 ng/mL Natasha Rey APRN LAB BLOOD ORDERABLE S Final Result [facility] [address] [facility], [facility] [id number] [place] [id number] * TSH (05/02/2024 8:41 AM REFRIGERATION OPERATOR) Thyroid Stimulating Hormone 3.69 0.27 - 4.20 mcunit/mL 05/02/2024 9:16 AM [facility] Blood Peripheral blood specimen / Unknown Venipuncture / Unknown 05/02/2024 8:41 AM REFRIGERATION OPERATOR 05/02/2024 8:41 AM REFRIGERATION OPERATOR Natasha Rey WEB PRESSMAN LAB BLOOD ORDERABLE S Final Result [address] [address] * (ABNORMAL) Hemoglobin A1c (05/02/2024 8:41 AM REFRIGERATION OPERATOR) Hemoglobin A1c 5.8(H) 4.3 - 5.6 % 05/02/2024 9:00 AM [facility] Blood Peripheral blood specimen / Unknown Venipuncture / Unknown 05/02/2024 8:41 AM REFRIGERATION OPERATOR 05/02/2024 8:41 AM REFRIGERATION OPERATOR Narrative [place] - 05/02/2024 9:00 AM REFRIGERATION OPERATOR HbA1c values >=6.5% are diagnostic of diabetes mellitus. Diagnosis should be confirmed by repeat testing. Therapeutic Action suggested: >8.0% HbA1c; Goal of therapy: <7.0% HbA1c Natasha Rey WEB PRESSMAN LAB BLOOD ORDERABLE S Final Result [address] [address] * (ABNORMAL) Lipid Panel (05/02/2024 8:41 AM REFRIGERATION OPERATOR) Cholesterol Total 173 <200 mg/dL 05/02/2024 9:14 AM [facility] Comment: ATP III Classification of Total Cholesterol - Primary Target of Therapy (in mg/dL): <200 Desirable 200-239 Borderline high >=240 High Triglyceride 135 <150 mg/dL 05/02/2024 9:14 AM [facility] Comment: ATP III Classification of Serum Triglycerides Primary Target of Therapy (in mg/dL): <150 Normal 150-199 Borderline high 200-499 High >=500 Very high Non-fasting triglycerides >200 mg/dL may be followed up with a fasting Lipid Panel. Calculated LDL-C may be falsely decreased when non-fasting triglycerides >200 mg/dL. HDL Cholesterol 43 >=40 mg/dL 05/02/2024 9:14 AM [facility] LDL Cholesterol 103(H) <=100 mg/dL 05/02/2024 9:14 AM [facility] Comment: ATP III Classification of LDL Cholesterol Primary Target of Therapy (in mg/dL): <100 Optimal 100-129 Near optimal/above optimal 130-159 Borderline high 160-189 High >=190 Very high Very Low Density Lipoprotein 27 mg/dL 05/02/2024 9:14 AM [facility] Is patient fasting? Yes 05/02 9:14 AM [facility] Blood Peripheral blood specimen / Unknown Venipuncture / Unknown 05/02/2024 8:41 AM REFRIGERATION OPERATOR 05/02/2024 8:41 AM REFRIGERATION OPERATOR us Natasha Rey WEB PRESSMAN LAB BLOOD ORDERABLE S Final Result Performing Organization Address [facility]/State/ZIP Co de Phone Number [facility] [address] [facility], [facility] [address] [place] [address] * OSI CT Abdomen and Pelvis (02/24/2024 2:29 AM CDT) Narrative Systemgenerated, Documentation - 03/21/2024 2:29 AM CDT Study acquired at another institution. For comparison only. No MD Chandler originated interpretation requested or available. us Maranda Perales MD IMG OUTSIDE IMAGE ORDERA BLES Final Result * OSI PET CT Skull to Mid Thigh (01/14/2024 1:08 PM CDT) Narrative Systemgenerated, Documentation - 02/29/2024 1:08 PM CDT Study acquired at another institution. For comparison only. No MD Chandler originated interpretation requested or available. 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 Repairer Relationship Specialty Start Date End Date Silverio Webster PA [address] [place] [address] PCP - External Primary Care Provider Family Practice 02/03/24 Cody Perez MD [address] [place] [address] [place] [address] [email or web address] PCP - External Follow Up A Radiation Oncology 02/03/24 Maranda Perales MD [address] [place] [address] [phone] [email or web address] PCP - General Genitourinary Oncology 02/17/24 Felicia Avila MD [address] [place] [phone] [email or web address] Consulting Physician Internal Medicine 05/10/24 Bethany Amezcua MD [address] [place] [id number] [email or web address] Consulting Physician Supportive Care 07/11/24 Dylan Sam MD [address] [place] [id number] [email or web address] Consulting Physician Genitourinary Oncology 07/20/24
[2024-08-20 09:41] LABS: Absolute Basophils 0.1 K/uL (0-0.5); Absolute Eosinophils 0.6 K/uL (0-0.5); Absolute Monocytes 0.5 K/uL (0.1-1.3); Absolute Neutrophil 6.6 K/uL (1.8-8.0); Basophils % 1.2 % (0-1.3); Eosinophils % 6.5 % (0-4.4); Hemoglobin 13.4 g/dL (13.6-17.9); Lymphocytes % 10.9 % (15.3-44.8); MCH 31.4 pg (27.0-35.0); MCHC 34.3 g/dL (32.0-36.0); MCV 91.8 fL (80-100); MPV 9.3 fL (7.6-11.3); Neutrophils % 75.4 % (41.7-73.7); Platelets 169 thou/uL (152-406); RBC Red Blood Cell Count 4.25 M/uL (4.33-5.43); Red Cell Distribution Width 14.8 % (12.1-15.2)
[2024-08-20 10:01] LABS: Albumin 2.7 g/dL (3.4-5.0); Albumin/Globulin Ratio 0.7 (1.1-1.8); Bilirubin Direct 0.4 mg/dL (0-0.2); Bilirubin Indirect, Calculated 0.7 mg/dL (0.2-0.8); Bilirubin Total 1.1 mg/dL (0.2-1.0); Magnesium 2.2 mg/dL (1.6-2.4); Protein, Total 6.7 g/dL (6.4-8.2)
[2024-08-20 10:32] LABS: PT Prothrombin Time 15.9 SECONDS (10-13.0); Protime INR 1.42
[2024-08-20 10:49] LABS: Blood Gas THB 14.3 g/dl (12-18); Blood O2 Saturation 92.4 % (92-98.5)
--- NOTE | 2024-08-20 10:51 | EDPHYS ---
Physician Documentation [facility] Name: Maverick Willis Age: 79 yrs Sex: Male : 1945 Arrival Date: 08/20/2024 Time: 09:11 Bed 4 Private MD: ED Physician Kimber Hendrix HPI: 08/20 09:48 This 79 yrs old Male presents to ER via EMS with complaints of Shortness Of Breath. 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 EMS arrived to find patient at 50% pulse oxygenation breathing at over 30 times per minute. No other symptoms noted except peripheral edema. Patient currently denies headache, fever, chest pain, abdominal pain, vomiting, diarrhea or any other signs or symptoms on ROS at this time.. Historical: - Allergies: 09:34 Hydrochlorothiazide; aa5 - Home Meds: 09:26 furosemide 40 mg Oral tablet daily for edema [Active]; gabapentin 300 mg oral capsule aa5 every day at bedtime [Active]; hydrocodone-acetaminophen 10-325 mg Oral tablet every 6 hours for pain [Active]; Miralax 17 gram Oral powder in packet daily for constipation [Active]; olanzapine 5 mg oral tablet every day at bedtime [Active]; prednisone 5 mg Oral tablet daily [Active]; Nubeqa 300 mg oral tablet 2 tabs 2 times per day for metastatic castration-sensitive prostate cancer [Active]; amlodipine 5 mg tablet daily [Active]; aspirin 81 mg oral tablet,chewable daily [Active]; vitamin d3-vitamin K daily [Active]; Glucosamine 750mg oral tablet 2 times per day [Active]; levothyroxine 88 mcg oral tablet daily [Active]; losartan 100 mg oral tablet daily [Active]; metoprolol tartrate 25 mg Oral tablet 2 times per day [Active]; - PMHx: 09:15 Hypertensive disorder; Hypothyroidism; Prostate Cancer with metastasis; aa5 17:41 CHF; aa5 - Immunization history:: Adult Immunizations unknown. - Infectious Disease History:: Denies. - Social history:: Smoking status: Patient/guardian denies using tobacco. ROS: 09:49 Constitutional: Negative for fever, chills, and weight loss, Eyes: Negative for injury, sp3 pain, redness, and discharge, ENT: Negative for injury, pain, and discharge, Neck: Negative for injury, pain, and swelling, Cardiovascular: Negative for chest pain, palpitations, and edema, Abdomen/GI: Negative for abdominal pain, nausea, vomiting, diarrhea, and constipation, Back: Negative for injury and pain, MS/Extremity: Negative for injury and deformity, Skin: Negative for injury, rash, and discoloration, Neuro: Negative for headache, weakness, numbness, tingling, and seizure, Psych: Negative for depression, anxiety, suicide ideation, homicidal ideation, and hallucinations, Allergy/Immunology: Negative for hives, rash, and allergies, Endocrine: Negative for neck swelling, polydipsia, polyuria, polyphagia, and marked weight changes, 09:49 All other systems are negative, Exam: 09:49 Constitutional: This is a well developed, well nourished patient who is awake, alert, sp3 and in no acute distress. Head/Face: Normocephalic, atraumatic. Eyes: Pupils equal round and reactive to light, extra-ocular motions intact. Lids and lashes normal. Conjunctiva and sclera are non-icteric and not injected. Cornea within normal limits. Periorbital areas with no swelling, redness, or edema. Neck: Trachea midline, no thyromegaly or masses palpated, and no cervical lymphadenopathy. Supple, full range of motion without nuchal rigidity, or vertebral point tenderness. No Meningismus. Chest/axilla: Normal chest wall appearance and motion. Nontender with no deformity. No lesions are appreciated. Cardiovascular: Regular rate and rhythm with a normal S1 and S2. No gallops, murmurs, or rubs. Normal PMI, no JVD. No pulse deficits. Abdomen/GI: Soft, non-tender, with normal bowel sounds. No distension or tympany. No guarding or rebound. No evidence of tenderness throughout. Back: No spinal tenderness. No costovertebral tenderness. Full range of motion. Skin: Warm, dry with normal turgor. Normal color with no rashes, no lesions, and no evidence of cellulitis. MS/ Extremity: Pulses equal, no cyanosis. Neurovascular intact. Full, normal range of motion. Neuro: Awake and alert, GCS 15, oriented to person, place, time, and situation. Cranial nerves II-XII grossly intact. Motor strength 5/5 in all extremities. Sensory grossly intact. Cerebellar exam normal. Normal gait. Psych: Awake, alert, with orientation to person, place and time. Behavior, mood, and affect are within normal limits. 09:49 Respiratory: Patient mildly tachycardic. Patient in respiratory distress still better according to EMS after significant supplemental oxygen at 10 L was administered. Patient arrived on FiO2 nasal cannula at 6 L at 87%, heart rate 108 and breathing at 32 breaths/min. Bilateral rales noted. ABG has been ordered., 09:50 Musculoskeletal/extremity: Peripheral edema noted.. sp3 10:33 ECG was reviewed by the Attending Physician. EKG demonstrates sinus tachycardia at 110 sp3 bpm with normal intervals except QTc 484, leftward axis nonspecific diffuse ST's ST changes without evidence of acute ischemia. Vital Signs: 09:15 BP 105 / 61; Pulse 108; Resp 32 S; Temp 98.7(O); Pulse Ox 87% on 4 lpm NC; Weight aa5 133.81 kg (M); Height 5 ft. 8 in. (R); 09:17 Pulse Ox 92% on 5 lpm NC; aa5 09:44 BP 107 / 62; Pulse 105; Resp 34 S; Pulse Ox 92% on 5 lpm NC; aa5 10:30 BP 107 / 64; Pulse 106; Resp 38 S; Pulse Ox 90% on 5 lpm NC; aa5 11:05 BP 106 / 65; Pulse 100; Resp 37 S; Pulse Ox 93% on 2 lpm NC; aa5 11:30 BP 110 / 72; Pulse 98; Resp 30 S; Pulse Ox 98% on BiPAP; aa5 12:00 BP 110 / 58; Pulse 100; Resp 26 S; Pulse Ox 95% on BiPAP; aa5 12:45 BP 107 / 72; Pulse 100; Resp 24 S; Pulse Ox 95% on BiPAP; aa5 14:00 BP 90 / 56; Pulse 98; Resp 18 S; Pulse Ox 96% on BiPAP; aa5 09:15 Body Mass Index 44.85 (133.81 kg, 172.72 cm) aa5 MDM: 09:15 Medical Screening Exam initiated sp3 09:50 Data reviewed: vital signs, nurses notes, lab test result(s), EKG, radiologic studies. 3 ED course: 79-year-old male with PMH above including prostate cancer now presents to the ED with chief complaint dyspnea. Differential diagnosis includes CHF, pneumonia, bronchitis, PE, ACS, among others. Workup will include general labs, chest x-ray, CT PE protocol, EKG and general supportive care. Supplemental oxygen as needed. Disposition will be admission to the hospital with further intervention as indicated.. 10:32 ED course: Patient cannot tolerate laying flat for the CT chest. does have CT from [facility] 08/08/2024 which demonstrates no PE and extensive interstitial lung disease with possible underlying infection. This is likely the same process which is going on now. Will go ahead and treat with antibiotics and admit patient with potential trial on BiPAP.. 08/20 09:15 Order name: Basic Metabolic Panel; Complete Time: 10:28 [facility] 08/20 09:15 Order name: CBC with Diff; Complete Time: 10:28 [facility] 08/20 09:15 Order name: LFT's; Complete Time: 10:28 [facility] 08/20 09:15 Order name: Magnesium; Complete Time: 10:28 [facility] 08/20 09:15 Order name: NT PRO-BNP; Complete Time: 10:28 [facility] 08/20 09:15 Order name: PT-INR; Complete Time: 10:33 3 08/20 09:15 Order name: Troponin HS; Complete Time: 10:28 [facility] 08/20 09:15 Order name: ABG [facility] 08/20 09:16 Order name: Lactate w/ 2H reflex if indic.; Complete Time: 10:28 [facility] 08/20 10:33 Order name: Blood Culture Adult (2) [facility] 08/20 13:05 Order name: CBC with Automated Diff [facility] 08/20 13:05 Order name: CBC with Automated Diff [facility] 08/20 13:05 Order name: Comprehensive Metabolic Panel [facility] 08/20 13:05 Order name: Comprehensive Metabolic Panel [facility] 08/20 13:05 Order name: Troponin High Sensitivity [facility] 08/20 13:05 Order name: Troponin High Sensitivity [facility] 08/20 13:05 Order name: Troponin High Sensitivity [facility] 08/20 13:05 Order name: Troponin High Sensitivity [facility] 08/20 09:15 Order name: XRAY Chest (1 view); Complete Time: 12:31 sp3 08/20 10:57 Order name: BIPAP sp3 08/20 13:06 Order name: Echo with Doppler [facility] 08/20 13:05 Order name: CONS Physician Consult [facility] 08/20 13:05 Order name: CONS Physician Consult [facility] 08/20 09:15 Order name: Cardiac monitoring; Complete Time: 09:21 sp3 08/20 09:15 Order name: EKG - Nurse/Tech; Complete Time: 09:21 sp3 08/20 09:15 Order name: IV Saline Lock; Complete Time: 09:21 sp3 08/20 09:15 Order name: Labs collected and sent; Complete Time: 09:42 sp3 08/20 09:15 Order name: O2 Per Protocol; Complete Time: 09:21 sp3 08/20 09:15 Order name: O2 Sat Monitoring; Complete Time: 09:21 sp3 08/20 09:47 Order name: Misc. Order: lab redraw blue top; Complete Time: 10:22 sp Administered Medications: 11:30 Drug: Cefepime IVPB 2 grams IVPB at 200 ml/hr once over 30 mins; (mix in NS 100 mL) aa5 Route: IVPB; Rate: 200 ml/hr; Infused Over: 30 mins; Site: right antecubital; 12:00 Follow up: Response: No adverse reaction; IV Status: Completed infusion; IV Intake: aa5 100ml 12:05 Drug: vancoMYCIN IVPB 1 grams IVPB once over 2 hrs Route: IVPB; Infused Over: 2 hrs; aa5 Site: right antecubital; 12:20 Follow up: Response: No adverse reaction aa5 14:05 Follow up: IV Status: Completed infusion; IV Intake: 500ml aa5 Disposition: 12:49 Critical Care:. sp3 Disposition Summary: 08/20/24 10:50 Hospitalization Ordered Notes: Hospitalization Status: Inpatient Admission sp3 Provider: Joya Mccullough Condition: Stable sp3 Problem: an acute exacerbation sp3 Symptoms: have worsened sp3 Bed/Room Type: Standard sp3 Location: Intensive Care Unit(08/20/24 17:28) Room Assignment: 3-(08/20/24 17:28) Diagnosis - Respiratory distress, hypoxia, interstitial lung disease, pneumonia sp3 Forms: - Medication Reconciliation Form sp3 - SBAR form sp3 - Leadership Thank You Letter sp3 Critical care time excluding procedures: 12:49 Critical care time: Bedside Care: 10 minutes, Consultation: 10 minutes, Family sp3 Intervention: 10 minutes. Total time: 30 minutes Signatures: Dispatcher [employer] EDMS MartirRoselyn Conchis Mcintyre, RN RN aa5 Romelia Prather RN RN ss Kimber Hendrix MD MD sp3 Kasi Calderón, J2EE CONSULTANT-C J2EE CONSULTANT-Cdr5 Corrections: (The following items were deleted from the chart) 09:16 09:16 BASIC METABOLIC PANEL+C.LAB.BRZ ordered. EDMS EDMS 09:16 09:16 CBC+H.LAB.BRZ ordered. EDMS EDMS 09:16 09:16 HEPATIC FUNCTION+C.LAB.BRZ ordered. EDMS EDMS 09:16 09:16 MAGNESIUM+C.LAB.BRZ ordered. EDMS EDMS 09:16 09:16 PROBNP+C.LAB.BRZ ordered. EDMS EDMS 09:16 09:16 PROTIME (+INR)+COAG.LAB.BRZ ordered. EDMS EDMS 09:16 09:16 Troponin High Sensitivity+C.LAB.BRZ ordered. EDMS EDMS 09:16 09:16 Chest Single View+RAD.RAD.BRZ ordered. EDMS EDMS 09:17 09:17 Arterial Blood Gas+RC.LAB.BRZ ordered. EDMS EDMS 09:17 09:17 LACTATE+C.LAB.BRZ ordered. EDMS EDMS 10:34 10:34 BLOOD CULTURE*+BA.LAB.BRZ ordered. EDMS EDMS 10:36 09:51 Chest For PE Angio+CT.RAD.BRZ ordered. EDMS EDMS 13:51 10:50 Telemetry/MedSurg (Inpatient) sp3 ss 13:51 10:50 sp3 ss 14:11 13:51 [facility] ER HOLD ss ss 14:11 13:51 ERHOLD- ss ss 14:17 14:11 Intensive Care Unit ss ss 14:17 14:11 3- ss ss 17:28 14:17 [facility] ER HOLD ss ss 17:28 14:17 ERHOLD- ss ss
--- NOTE | 2024-08-20 10:51 | ER ---
Nurse's Notes [facility] Name: Maverick Willis Age: 79 yrs Sex: Male : 1945 Arrival Date: 08/20/2024 Time: 09:11 Bed 4 Private MD: Diagnosis: Respiratory distress, hypoxia, interstitial lung disease, pneumonia Presentation: 08/20 09:15 Acuity: JORJE 2 aa5 09:15 Coronavirus screen: shortness of breath. Ebola Screen: Patient denies travel to an [facility] Ebola-affected area in the 21 days before illness onset. Initial Sepsis Screen: Does the patient meet any 2 criteria? RR > 20 per min. HR > 90 bpm. Yes Does the patient have a suspected source of infection? No. Patient's initial sepsis screen is negative. Risk Assessment: Do you want to hurt yourself or someone else? Patient reports no desire to harm self or others. Onset of symptoms was August 19, 2024. 09:15 Method Of Arrival: EMS: [facility] aa5 09:15 Care prior to arrival: Medication(s) given: Albuterol Neb x 1, Atrovent Neb x 1, aa5 Solu-medrol 125mg IVP IV initiated. 20 GA, in the right antecubital area, Glucose check: 113 Oxygen administered. via nasal cannula. 09:15 Chief complaint: EMS states: increased SOB since last night, pt normally on home O2 via aa5 NC at 4 L. Historical: - Allergies: 09:34 Hydrochlorothiazide; aa5 - Home Meds: 09:26 furosemide 40 mg Oral tablet daily for edema [Active]; gabapentin 300 mg oral capsule aa5 every day at bedtime [Active]; hydrocodone-acetaminophen 10-325 mg Oral tablet every 6 hours for pain [Active]; Miralax 17 gram Oral powder in packet daily for constipation [Active]; olanzapine 5 mg oral tablet every day at bedtime [Active]; prednisone 5 mg Oral tablet daily [Active]; Nubeqa 300 mg oral tablet 2 tabs 2 times per day for metastatic castration-sensitive prostate cancer [Active]; amlodipine 5 mg tablet daily [Active]; aspirin 81 mg oral tablet,chewable daily [Active]; vitamin d3-vitamin K daily [Active]; Glucosamine 750mg oral tablet 2 times per day [Active]; levothyroxine 88 mcg oral tablet daily [Active]; losartan 100 mg oral tablet daily [Active]; metoprolol tartrate 25 mg Oral tablet 2 times per day [Active]; - PMHx: 09:15 Hypertensive disorder; Hypothyroidism; Prostate Cancer with metastasis; aa5 17:41 CHF; aa5 - Immunization history:: Adult Immunizations unknown. - Infectious Disease History:: Denies. - Social history:: Smoking status: Patient/guardian denies using tobacco. Screenin:15 [facility] ED Fall Risk Assessment (Adult) History of falling in the last 3 months, aa5 including since admission No falls in past 3 months (0 pts) Confusion or Disorientation No (0 pts) Intoxicated or Sedated No (0 pts) Impaired Gait Yes (1 pt) Mobility Assist Device Used Yes (1 pt) Altered Elimination No (0 pt) Score/Fall Risk Level 0 - 2 = Low Risk Oriented to surroundings, Maintained a safe environment, Educated pt \T\ family on fall prevention, incl call for assistance when getting out of bed. Abuse screen: Denies threats or abuse. Nutritional screening: No deficits noted. Tuberculosis screening: No symptoms or risk factors identified. Assessment: 09:15 General: Appears uncomfortable, Behavior is calm, cooperative. Pain: Denies pain. aa5 Neuro: Level of Consciousness is awake, alert, obeys commands, Oriented to person, place, time, situation. Cardiovascular: Heart tones S1 S2 present Edema is absent. Rhythm is regular. Respiratory: Reports shortness of breath at rest Airway is patent Respiratory effort is even, labored, Respiratory pattern is regular, symmetrical, tachypnea Breath sounds with rales bilaterally. GI: Abdomen is obese. : No signs and/or symptoms were reported regarding the genitourinary system. EENT: No signs and/or symptoms were reported regarding the EENT system. Derm: Skin is pink, warm \T\ dry. Musculoskeletal: Range of motion: intact in all extremities. 10:00 Neuro: Level of Consciousness is awake, alert, obeys commands, Oriented to person, aa5 place, time, situation. Respiratory: Airway is patent Respiratory effort is even, labored, Respiratory pattern is tachypnea. Derm: Skin is pink, warm \T\ dry. 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 . 11:00 Reassessment: Awaiting antibiotics from pharmacy, Pydonals currently unavailable in ER. . aa5 11:00 Neuro: Level of Consciousness is awake, alert, obeys commands, Oriented to person, aa5 place, time, situation. Respiratory: Airway is patent Respiratory effort is even, labored, Respiratory pattern is tachypnea. Derm: Skin is pink, warm \T\ dry. 11:00 Cardiovascular: Rhythm is sinus rhythm. aa5 11:05 Reassessment: Pt repositioned in bed and given warm blankets for comfort. . aa5 11:10 Reassessment: RT at bedside placing pt on Bi-PAP per MD. aa5 11:30 Reassessment: Pt tolerating Bi-PAP well. . aa5 12:45 Reassessment: Pt resting in bed with eyes closed, tolerating Bi-PAP well. Work of aa5 breathing has improved and SOB has improved. . Vital Signs: 09:15 BP 105 / 61; Pulse 108; Resp 32 S; Temp 98.7(O); Pulse Ox 87% on 4 lpm NC; Weight aa5 133.81 kg (M); Height 5 ft. 8 in. (R); 09:17 Pulse Ox 92% on 5 lpm NC; aa5 09:44 BP 107 / 62; Pulse 105; Resp 34 S; Pulse Ox 92% on 5 lpm NC; aa5 10:30 BP 107 / 64; Pulse 106; Resp 38 S; Pulse Ox 90% on 5 lpm NC; aa5 11:05 BP 106 / 65; Pulse 100; Resp 37 S; Pulse Ox 93% on 2 lpm NC; aa5 11:30 BP 110 / 72; Pulse 98; Resp 30 S; Pulse Ox 98% on BiPAP; aa5 12:00 BP 110 / 58; Pulse 100; Resp 26 S; Pulse Ox 95% on BiPAP; aa5 12:45 BP 107 / 72; Pulse 100; Resp 24 S; Pulse Ox 95% on BiPAP; aa5 14:00 BP 90 / 56; Pulse 98; Resp 18 S; Pulse Ox 96% on BiPAP; aa5 09:15 Body Mass Index 44.85 (133.81 kg, 172.72 cm) aa5 ED Course: 09:15 Patient arrived in ED. ss 09:15 Kimber Hendrix MD is Attending Physician. sp3 09:15 Arm band placed on Patient placed in an exam room, on a stretcher. aa5 09:15 Patient has correct armband on for positive identification. Placed in gown. Bed in low aa5 position. Call light in reach. Side rails up X2. Client placed on continuous cardiac and pulse oximetry monitoring. NIBP monitoring applied. shelter monitor on. Pulse ox on. NIBP on. 09:15 Maintain EMS IV. Gauge \T\ site: 20G to R AC . aa5 09:21 Conchis Haro, SALAS is Primary Nurse. aa5 09:23 Triage completed. aa5 10:29 XRAY Chest (1 view) In Process Unspecified. EDMS 10:35 Initial lab(s) drawn, by me, sent to lab. First set of blood cultures drawn by me. le1 10:50 Joya Mccullough MD is Hospitalizing Provider. sp3 11:19 No provider procedures requiring assistance completed. aa5 12:18 Lab(s) recollected, by me, sent to lab. le1 14:00 Patient admitted, IV remains in place. aa5 Administered Medications: 11:30 Drug: Cefepime IVPB 2 grams IVPB at 200 ml/hr once over 30 mins; (mix in NS 100 mL) aa5 Route: IVPB; Rate: 200 ml/hr; Infused Over: 30 mins; Site: right antecubital; 12:00 Follow up: Response: No adverse reaction; IV Status: Completed infusion; IV Intake: aa5 100ml 12:05 Drug: vancoMYCIN IVPB 1 grams IVPB once over 2 hrs Route: IVPB; Infused Over: 2 hrs; aa5 Site: right antecubital; 12:20 Follow up: Response: No adverse reaction aa5 14:05 Follow up: IV Status: Completed infusion; IV Intake: 500ml aa5 Medication: 11:15 VIS not applicable for this client. aa5 Intake: 12:00 IV: 100ml; Total: 100ml. aa5 14:05 IV: 500ml; Total: 600ml. aa5 Output: 14:00 Urine: 800ml (Voided); Total: 800ml. aa5 Outcome: 10:50 Decision to Hospitalize by Provider. sp3 14:00 Admitted to ER Hold. Please see [facility] for further documentation. aa5 14:00 Condition: stable 14:00 Instructed on the need for admit, Demonstrated understanding of 18:35 Patient left the ED. aa5 Signatures: Dispatcher [employer] EDConchis Humphrey RN RN aa5 Romelia Prather RN RN ss Kimber Hendrix MD MD sp3 Vince Baugh RN RN le1 Corrections: (The following items were deleted from the chart) 09:33 09:15 BP 105 / 61; Pulse 108bpm; Resp 32bpm; Spontaneous; Pulse Ox 87% 4 lpm Nasal aa5 Cannula; aa5 18:53 18:35 Patient left the ED. aa5
--- NOTE | 2024-08-20 11:11 | RAD REPORT ---
EXAMINATION: ONE VIEW CHEST XR CLINICAL INDICATION: Male, 79 years old.,DYSPNEA TECHNIQUE: Frontal chest projection is submitted. Examination is limited by patient positioning and t echnique. COMPARISON: 12/03/2021 FINDINGS: Progressive patchy bilateral airspace opacities with interstitial prominence. Background elevation of the right hemidiaphragm again seen. No pneumothorax or sizable effusion. The heart is normal in size. Mediastinal contours are unremarkable. IMPRESSION: Progressive patchy bilateral airspace opacities, could reflect multifocal pneumonia or pulmonary enio a.
[2024-08-20] MEDS: CEFEPIME 2 GM in NA CHLORIDE 0.9% 100 ML IV ONE (12:00)
[2024-08-20] MEDS: VANCOMYCIN 2 GM in NA CHLORIDE 0.9% 500 ML IVPB ONE (12:00)
[2024-08-20] MEDS ORDERED: MORPHINE 2 MG/ML SYR IV PRN (12:57)
--- NOTE | 2024-08-20 13:10 | P.HP ---
Certification for Inpatient Patient admitted to: Inpatient With expected LOS: >2 Midnights Patient will require the following post-hospital care: None Practitioner: I am a practitioner with admitting privileges, knowledge of patient current condition, hospital course, and medical plan of care. Services: Services provided to patient in accordance with Admission requirements found in Title 42 Section 412.3 of the Code of Federal Regulations Patient History Date of Service: 08/20/24 Reason for admission: Acute respiratory failure History of Present Illness: Patient is a 79-year-old gentleman who came to the hospital with shortness of breath. Patient is a history of prostate cancer and has been on chemotherapy. Patient's PSA has gone down quite significantly since starting chemotherapy. Patient looks to be fluid overloaded and came into the ER on August 08. Patient was worked up with CT PE protocol which came back negative and patient was dis charged home. Patient has had fluid retention and has had abdominal distention and lower extremity edema. Patient has had progressive worsening shortness of breath so the patient told his to bring him into the hospital. Patient was placed on BiPAP and has continued on BiPAP throughout the emergency room stay. Plan is to admit the patient to the ICU for closer monitoring. Allergies hydrochlorothiazide Allergy (Unverified 08/20/24 11:11) Hives/Rash Home Medications: Amlodipine [Norvasc*] 5 mg PO DAILY 08/20/24 Aspirin 81 mg PO DAILY 08/20/24 Darolutamide [Nubeqa] 2 tab PO BID 08/20/24 Furosemide 40 mg PO DAILY 08/20/24 Gabapentin 300 mg PO BEDTIME PRN 08/20/24 Hydrocodone 10/APAP 325 [Given 10/325*] 1 tab PO Q6H PRN 08/20/24 Levothyroxine [Synthroid*] 88 mcg PO DAILY 08/20/24 Losartan Potassium 100 mg PO DAILY 08/20/24 Metoprolol Tartrate 25 mg PO DAILY 08/20/24 Olanzapine [Zyprexa] 5 mg PO BEDTIME 08/20/24 Polyethylene Glycol 3350 [Miralax] 17 gm PO DAILY 08/20/24 Prednisone [Nick] 5 mg PO DAILY 08/20/24 Vitamin D3/Vitamin K2 (Mk4) [K2 Plus D3 Tablet] 1 tab PO DAILY 08/20/24 glucosamine HCL [Glucosamine HCl] 750 mg PO BID 08/20/24 - Past Medical/Surgical History -: Metastatic prostate cancer -: Congestive heart failure Past Surgical History: Patient denies surgical history - Family History Mother Family History: Reviewed- Non-Contributory - Social History Smoking Status: Former smoker Alcohol use: No CD- Drugs: No Review of Systems 10-point ROS is otherwise unremarkable Physical Examination - Vital Signs Temperature: 99 F Blood Pressure: 150/80 Pulse: 100 Respirations: 20 Pulse Ox (%): 96 - Physical Exam General: Alert, In no apparent distress, Oriented x3, Obese HEENT: Atraumatic, PERRLA, Mucous membr. moist/pink, EOMI, Sclerae nonicteric Neck: Supple, 2+ carotid pulse no bruit, No LAD, Without JVD or thyroid abnormality Respiratory: Crackles/rales, Expiratory wheezes Cardiovascular: Regular rate/rhythm, Normal S1 S2, No murmurs Gastrointestinal: Normal bowel sounds, Soft and benign, No tenderness, Distended Musculoskeletal: No clubbing, No tenderness, Swelling Integumentary: No rashes, Tenderness/swelling Neurological: Cranial nerves 3-12 intact, Abnormal strength Lymphatics: No axilla or inguinal lymphadenopathy - Studies Laboratory Data (last 24 hrs) 08/20/24 08/20/24 08/20/24 10:20 09:29 09:29 WBC 8.80 Hgb 13.4 L Hct 39.0 L Plt Count 169 PT 15.9 H INR 1.42 Sodium 131 L Potassium 4.0 BUN 15 Creatinine 1.00 Glucose 123 H Magnesium 2.2 Total Bilirubin 1.1 H AST 38 H ALT 35 Alkaline Phosphatase 369 H Assessment & Plan - Problems (Diagnosis) (1) Acute hypoxic respiratory failure Current Visit: Yes Status: Acute (2) Pneumonia Current Visit: Yes Status: Acute (3) Prostate cancer metastatic to bone Current Visit: Yes Status: Acute (4) Congestive heart failure Current Visit: Yes Status: Acute - Plan Plan: 1. Acute hypoxic respiratory failure; continue with BiPAP support and nebs and steroids and antibiotics. CT PE protocol will be repeated once again 2. Metastatic prostate cancer; patient's PSA levels have gone back down to normal after chemotherapy. His oncologist at [facility] had put a halt on his chemotherapy 3. Congestive heart failure; repeat echocardiogram pending and will continue with aggressive diuresing; will check nutritional levels and albumin levels to make sure no third spacing 4. Anemia of chronic disease; continue monitoring H&H. Check iron studies and B12 studies also check reticulocyte count 5. Cirrhosis; elevated coagulation profile as well as hypoalbuminemia and slig htly elevated bilirubin. 6. Elevated alkaline phosphatase; likely related bone metastasis; 7. GI DVT prophylax Discharge Plan: Home Plan to discharge in: Greater than 2 days - Advance Directives Does patient have a Living Will: No Does patient have a Durable POA for Healthcare: No Critical Care: Yes Time Spent Managing PTS Care (In Minutes): 60
[2024-08-20] MEDS: ALBUTEROL 2.5 MG/3 ML NEB SOL NEB SCH (14:00)
[2024-08-20] MEDS: IPRATROPIUM BROM 0.5MG/2.5ML NEB SCH (14:00)
[2024-08-20] MEDS ORDERED: METHYLPREDNISOLONE 40 MG INJ ONE (14:28)
[2024-08-20] MEDS ORDERED: NA CHLORIDE 0.9% 1,000 ML ONE (14:28)
[2024-08-20] MEDS: METHYLPREDNISOLONE 125 MG INJ IV SCH (14:44)
[2024-08-20] MEDS: NA CHLORIDE 0.9% 1,000 ML IV SCH (14:44)
[2024-08-20] MEDS: ALBUMIN HUMAN 25% 12.5 GM, FUROSEMIDE 100 MG in NA CHLORIDE 0.9% 40 ML IV SCH (16:00)
[2024-08-20] MEDS ORDERED: ALBUTEROL 2.5 MG/3 ML NEB SOL ONE (16:19)
[2024-08-20] MEDS ORDERED: IPRATROPIUM BROM 0.5MG/2.5ML ONE (16:19)
[2024-08-20] MEDS: GABAPENTIN 300 MG CAP PO PRN (20:54)
[2024-08-20] MEDS: NUBEQA PO ONE (20:54)
[2024-08-20] MEDS: OLANZapine 2.5 MG TAB PO SCH (20:54)
[2024-08-20] MEDS: ORGOVYX 120 MG PO ONE (20:54)
[2024-08-21 05:32] LABS: Absolute Basophils 0.1 K/uL (0-0.5); Absolute Lymphocytes (CBC) 0.8 K/uL (0.7-4.9); Absolute Monocytes 0.4 K/uL (0.1-1.3); Absolute Neutrophil 16.2 K/uL (1.8-8.0); Basophils % 0.4 % (0-1.3); Hematocrit 40.2 % (39.6-49.0); Hemoglobin 13.6 g/dL (13.6-17.9); Lymphocytes % 4.7 % (15.3-44.8); MCH 31.3 pg (27.0-35.0); MPV 9.7 fL (7.6-11.3); Monocytes % 2.3 % (3.3-12.3); Neutrophils % 92.6 % (41.7-73.7); Platelets 186 thou/uL (152-406); RBC Red Blood Cell Count 4.36 M/uL (4.33-5.43); Red Cell Distribution Width 14.7 % (12.1-15.2)
[2024-08-21 05:50] LABS: Albumin 2.8 g/dL (3.4-5.0); Albumin/Globulin Ratio 0.7 (1.1-1.8); Anion Gap 11.8 mEq/L (5.0-15.0); Bilirubin Total 0.7 mg/dL (0.2-1.0); Globulin 4.2 g/dL (2.3-3.5); Potassium 3.8 mEq/L (3.5-5.1); Troponin High Sensitivity 17.7 pg/mL (<58.9)
[2024-08-21] MEDS: IPRATROPIUM BROM 0.5MG/2.5ML NEB SCH (07:52)
[2024-08-21] MEDS: ALBUTEROL 2.5 MG/3 ML NEB SOL NEB SCH (07:53)
[2024-08-21] MEDS ORDERED: PNEUMOCOCCAL VACCINE 0.5 ML IMVAC ONE (08:00)
[2024-08-21] MEDS: LEVOTHYROXINE SOD 0.088 MG TAB PO SCH (08:29)
[2024-08-21] MEDS: METOPROLOL TAR 25 MG TAB PO SCH (08:29)
[2024-08-21] MEDS: POLYETHYL GLY 3350 17 GM/DOSE PO SCH (08:30)
[2024-08-21] MEDS: NUBEQA 300 MG PO SCH (08:30)
[2024-08-21] MEDS: ORGOVYX 120 MG PO SCH (08:30)
[2024-08-21 08:34] LABS: Blood Morphology Comment NOT SEEN (NOT SEEN); Platelet Estimate ADEQ; White Blood Cell Scan OK (OK)
[2024-08-21] MEDS: ENOXAPARIN 40 MG/0.4 ML SQ SCH (09:00)
--- NOTE | 2024-08-21 10:59 | P.CNS ---
Date of Consult: 08/21/24 Chief Complaint: Acute respiratory failure History of Present Illness: Patient with PMH of HTN, Prostate cancer with mets to bones and abdomen presented with worsening SOB, he has not been feeling well for the last few weeks, he was recently discharged from [facility] for same problem, told he got some fluid, diursed and discharged home, he has been feeling weak, decrease appetite. deneis chest pain. Allergies hydrochlorothiazide Allergy (Mild, Verified 08/20/24 19:51) Hives/Rash Home medications list reviewed: Yes Home Medications: Amlodipine [Norvasc*] 5 mg PO DAILY 08/20/24 Aspirin 81 mg PO DAILY 08/20/24 Darolutamide [Nubeqa] 2 tab PO BID 08/20/24 Furosemide 40 mg PO DAILY 08/20/24 Gabapentin 300 mg PO BEDTIME PRN 08/20/24 Hydrocodone 10/APAP 325 [[place] 10/325*] 1 tab PO Q6H PRN 08/20/24 Levothyroxine [Synthroid*] 88 mcg PO DAILY 08/20/24 Losartan Potassium 100 mg PO DAILY 08/20/24 Metoprolol Tartrate 25 mg PO DAILY 08/20/24 Olanzapine [Zyprexa] 5 mg PO BEDTIME 08/20/24 Polyethylene Glycol 3350 [Miralax] 17 gm PO DAILY 08/20/24 Prednisone [Nick] 5 mg PO DAILY 08/20/24 Relugolix [Orgovyx] 120 mg PO DAILY 08/20/24 Vitamin D3/Vitamin K2 (Mk4) [K2 Plus D3 Tablet] 1 tab PO DAILY 08/20/24 glucosamine HCL [Glucosamine HCl] 750 mg PO BID 08/20/24 - Past Medical/Surgical History -: Metastatic prostate cancer -: Congestive heart failure -: HTN -: Hypothyroidism - Family History Mother Family History: Reviewed- Non-Contributory - Social History Alcohol use: No CD- Drugs: No Place of Residence: Home Review of Systems 10-point ROS is otherwise unremarkable Physical Examination Temp Pulse Resp BP Pulse Ox 97.9 F 103 H 32 H 129/77 100 08/21/24 07:00 08/21/24 09:00 08/21/24 09:00 08/21/24 09:00 08/21/24 09:00 General: Alert, In no apparent distress HEENT: Atraumatic, PERRLA, Mucous membr. moist/pink, EOMI, Sclerae nonicteric Neck: Supple, 2+ carotid pulse no bruit, No LAD, Without JVD or thyroid abnormality Respiratory: Clear to auscultation bilaterally, Normal air movement Cardiovascular: Regular rate/rhythm, Normal S1 S2 Gastrointestinal: Normal bowel sounds, No tenderness Musculoskeletal: No tenderness Integumentary: No rashes Neurological: Normal gait, Normal speech, Normal tone, Normal affect Lymphatics: No axilla or inguinal lymphadenopathy - Problems (1) Congestive heart failure Current Visit: Yes Status: Acute Plan: patient usually take lasix at home and his SOB has been worsening, his BNP is normal, will get echo to check on wether patient need to be diursed or not. (2) HTN (hypertension) Current Visit: Yes Status: Acute Plan: continue metoprolol
--- NOTE | 2024-08-21 12:02 | EKG ---
Test Date: 2024-08-20 Test Time: 09:19:26 Whizzer: ROC MEASUREMENT RESULTS: Intervals: Rate: 111 AL: 150 QRSD: 114 QT: 356 QTc: 484 [place]: P: 28 AL: 150 QRS: -16 T: 99 INTERPRETIVE STATEMENTS: Sinus tachycardia Possible Left atrial enlargement Left ventricular hypertrophy with repolarization abnormality Abnormal ECG Compared to ECG 11/08/1998 08:48:00 Left ventricular hypertrophy now present Early repolarization now present Sinus bradycardia no longer present Myocardial infarct finding no longer present Electronically Signed On 08-21-24 11:59:48 CDT by Seven Arthur
--- NOTE | 2024-08-21 12:46 | P.CNS ---
Date of Consult: 08/21/24 Reason for Consult: Respiratory failure Chief Complaint: Acute respiratory failure History of Present Illness: Patient is 79 years of age admitted to the hospital with shortness of breath he has metastatic prostate cancer history of prior cardiopulmonary problems history of sleep apnea does not use CPAP at home currently on BiPAP still tachypneic Recently started on hormone antagonist Allergies hydrochlorothiazide Allergy (Mild, Verified 08/20/24 19:51) Hives/Rash Home Medications: Amlodipine [Norvasc*] 5 mg PO DAILY 08/20/24 Aspirin 81 mg PO DAILY 08/20/24 Darolutamide [Nubeqa] 2 tab PO BID 08/20/24 Furosemide 40 mg PO DAILY 08/20/24 Gabapentin 300 mg PO BEDTIME PRN 08/20/24 Hydrocodone 10/APAP 325 [[place] 10/325*] 1 tab PO Q6H PRN 08/20/24 Levothyroxine [Synthroid*] 88 mcg PO DAILY 08/20/24 Losartan Potassium 100 mg PO DAILY 08/20/24 Metoprolol Tartrate 25 mg PO DAILY 08/20/24 Olanzapine [Zyprexa] 5 mg PO BEDTIME 08/20/24 Polyethylene Glycol 3350 [Miralax] 17 gm PO DAILY 08/20/24 Prednisone [Nick] 5 mg PO DAILY 08/20/24 Relugolix [Orgovyx] 120 mg PO DAILY 08/20/24 Vitamin D3/Vitamin K2 (Mk4) [K2 Plus D3 Tablet] 1 tab PO DAILY 08/20/24 glucosamine HCL [Glucosamine HCl] 750 mg PO BID 08/20/24 - Past Medical/Surgical History -: Metastatic prostate cancer -: Congestive heart failure -: HTN -: Hypothyroidism - Family History Mother Family History: Reviewed- Non-Contributory - Social History Alcohol use: No CD- Drugs: No Place of Residence: Home Review of Systems 10-point ROS is otherwise unremarkable General: Weakness Respiratory: Shortness of Breath Physical Examination Temp Pulse Resp BP Pulse Ox 97.8 F 86 32 H 104/67 95 08/21/24 12:00 08/21/24 12:00 08/21/24 12:00 08/21/24 12:00 08/21/24 12:00 General: Alert, Oriented x3 Respiratory: Clear to auscultation bilaterally, Diminished Cardiovascular: No edema, Regular rate/rhythm, Normal S1 S2 - Problems (1) Acute lung injury Current Visit: Yes Status: Acute Plan: Patient is 79 years of age with metastatic prostate cancer admitted with ARDS is got bilateral diffuse infiltrate patient on diuretics DC IV fluids continue with steroids for now increase CPAP his white count may be elevated from the steroids patient is on antiandrogen and GnRH antagonist therapy from [facility] history of heart failure is one of the side effects of antiandrogen therapy await echocardiogram trial of IV Lasix DC nebulizers increase PEEP to 10. Sat to 90%
[2024-08-21] MEDS: FUROSEMIDE 40 MG/4 ML VIAL IV SCH (12:55)
[2024-08-21] MEDS: ENSURE MAX PROTEIN 330 ML LIQUID PO SCH (12:56)
--- NOTE | 2024-08-21 13:21 | ECHO ---
HEIGHT: 5 ft 8 in WEIGHT: 292 lb 12.8 oz DATE OF STUDY: 08/21/[address]: Joya Mccullough MD 2-DIMENSIONAL: YES M.MODE: YES DOPPLER: YES COLOR FLOW: YES TDS: PORTABLE: YES DEFINITY: BUBBLE STUDY: DIAGNOSIS: CONGESTIVE HEART FAILURE CARDIAC HISTORY: CATHERIZATION: SURGERY: PROSTHETIC VALVE: PACEMAKER: MEASUREMENTS (cm) DIASTOLIC (NORMALS) SYSTOLIC (NORMALS) IVSd 1.0 (0.6-1.2) LA Diam 3.4 (1.9-4.0) LVEF 60-65% LVIDd 3.8 (3.5-5.7) LVIDs 2.8 (2.0-3.5) %FS 27% LVPWd 1.1 (0.6-1.2) Ao Diam 2.8 (2.0-3.7) 2 DIMENSIONAL ASSESSMENT: RIGHT ATRIUM: NORMAL LEFT ATRIUM: NORMAL RIGHT VENTRICLE: NORMAL LEFT VENTRICLE: NORMAL TRICUSPID VALVE: MODERATE TRICUSPID REGURGITATION MITRAL VALVE: MODERATE MITRAL ANNULAR CALCIFICATION PULMONIC VALVE: NORMAL AORTIC VALVE: CALCIFIED, NO STENOSIS PERICARDIAL EFFUSION: NONE AORTIC ROOT: NORMAL LEFT VENTRICULAR WALL MOTION: NORMAL DOPPLER/COLOR FLOW: GRADE I DIASTOLIC DYSFUNCTION COMMENTS: 1. NORMAL LEFT VENTRICULAR SYSTOLIC FUNCTION, EJECTION FRACTION 60-65%, NORMAL WALL MOTION 2. GRADE I DIASTOLIC DYSFUNCTION 3. MODERATE TRICUSPID REGURGITATION 4. MODERATE PULMONARY HYPERTENSION (RIGHT VENTRICULAR SYSTOLIC PRESSURE 50-55 mmHg) 5. MILD ELEVATED FILLING PRESSURE (RIGHT ATRIAL PRESSURE 5-10 mmHg) TECHNOLOGIST: SOFYA MORTON [facility]
[2024-08-21] MEDS: HYDROCODONE/APAP 10/325 TAB PO PRN (20:21)
--- NOTE | 2024-08-22 06:16 | P.PN ---
Date of Service: 08/21/24 Subjective Encouraged nurses to try on nasal cannula as patient is clinically satting 100% on 30% BiPAP. Physical Examination - Vital Signs Reviewed - Physical Exam General: Alert, In no apparent distress, Oriented x3, Obese Respiratory: Crackles/rales, Expiratory wheezes Cardiovascular: Regular rate/rhythm, Normal S1 S2, No murmurs Gastrointestinal: Normal bowel sounds, Soft and benign, No tenderness, Distended Musculoskeletal: No clubbing, No tenderness, Swelling Integumentary: No rashes, Tenderness/swelling Neurological: Cranial nerves 3-12 intact, Abnormal strength Assessment & Plan - Problems (Diagnosis) (1) Acute hypoxic respiratory failure Current Visit: Yes Status: Acute (2) Pneumonia Current Visit: Yes Status: Acute (3) Prostate cancer metastatic to bone Current Visit: Yes Status: Acute (4) Congestive heart failure Current Visit: Yes Status: Acute (5) Generalized weakness and cachexia Current Visit: Yes Status: Acute - Plan Continue with plan of care as mentioned below: 1. Acute hypoxic respiratory failure; continue with BiPAP support and nebs and steroids and antibiotics. CT PE protocol will be repeated once again 2. Metastatic prostate cancer; patient's PSA levels have gone back down to normal after chemotherapy. His oncologist at [facility] had put a halt on his chemotherapy 3. Congestive heart failure; repeat echocardiogram pending and will continue with aggressive diuresing; will check nutritional levels and albumin levels to make sure no third spacing 4. Anemia of chronic disease; continue monitoring H&H. Check iron studies and B12 studies also check reticulocyte count 5. Cirrhosis; elevated coagulation profile as well as hypoalbuminemia and slightly elevated bilirubin. 6. Elevated alkaline phosphatase; likely related bone metastasis; 7. Generalized weakness with cachexia; will encourage nutrition and physical therapy 8. GI DVT prophylaxis Discharge Plan: SNF Plan to discharge in: Greater than 2 days - Advance Directives Does patient have a Living Will: No Does patient have a Durable POA for Healthcare: No Critical Care: Yes Time Spent Managing PTS Care (In Minutes): 45
[2024-08-22 07:20] LABS: Absolute Lymphocytes (CBC) 0.5 K/uL (0.7-4.9); Absolute Monocytes 0.3 K/uL (0.1-1.3); Absolute Neutrophil 18.7 K/uL (1.8-8.0); Basophils % 0.2 % (0-1.3); Hemoglobin 13.1 g/dL (13.6-17.9); Lymphocytes % 2.3 % (15.3-44.8); MCH 31.1 pg (27.0-35.0); MCHC 33.6 g/dL (32.0-36.0); MCV 92.6 fL (80-100); MPV 10.2 fL (7.6-11.3); Monocytes % 1.4 % (3.3-12.3); Neutrophils % 96.1 % (41.7-73.7); Nucleated Red Blood Cells % 0.1 % (0-0); Platelets 170 thou/uL (152-406); RBC Red Blood Cell Count 4.21 M/uL (4.33-5.43); Red Cell Distribution Width 15.2 % (12.1-15.2)
[2024-08-22 07:26] LABS: Albumin 2.8 g/dL (3.4-5.0); Albumin/Globulin Ratio 0.7 (1.1-1.8); Anion Gap 9.9 mEq/L (5.0-15.0); Bilirubin Total 0.5 mg/dL (0.2-1.0); Globulin 3.9 g/dL (2.3-3.5); Magnesium 2.5 mg/dL (1.6-2.4); Potassium 3.9 mEq/L (3.5-5.1); Protein, Total 6.7 g/dL (6.4-8.2)
[2024-08-22] MEDS: METHYLPREDNISOLONE 40 MG INJ IV SCH (08:51)
--- NOTE | 2024-08-22 10:07 | RAD REPORT ---
EXAM: Chest Single View HISTORY: 79 years Male Resp faliur COMPARISON: 08/20/2024 FINDINGS: LUNGS/PLEURA: Low lung volumes with bilateral interstitial and airspace disease similar to 08/20/2024. CARDIAC/MEDIASTINUM: Magnified by portable technique, but probably within normal limits. UPPER ABDOMEN: No significant abnormality. BONES: No acute abnormality. LINES/TUBES/OTHER: N/A IMPRESSION: Low lung volumes and bilateral airspace disease unchanged since 08/20/2024 and possibly reflecting gustavo ma and/or pneumonia.
--- NOTE | 2024-08-22 11:31 | P.PN ---
Subjective Date of Service: 08/22/24 Chief Complaint: Acute respiratory failure Subjective: No new changes, No C/O voiced, Tolerating diet, Ambulating, Improving Review of Systems 10-point ROS is otherwise unremarkable Physical Examination - Vital Signs Temperature: 97.1 F Blood Pressure: 133/83 Pulse: 87 Respirations: 22 Pulse Ox (%): 96 - Physical Exam General: Alert, In no apparent distress HEENT: Atraumatic, PERRLA, EOMI Neck: Supple, JVD not distended Respiratory: Clear to auscultation bilaterally, Normal air movement Cardiovascular: Regular rate/rhythm, Normal S1 S2 Gastrointestinal: Normal bowel sounds, No tenderness Musculoskeletal: No tenderness Integumentary: No rashes Neurological: Normal speech, Normal tone, Normal affect Lymphatics: No axilla or inguinal lymphadenopathy - Studies Medications List Reviewed: Yes Assessment And Plan - Current Problems (Diagnosis) (1) Congestive heart failure Current Visit: Yes Status: Acute Plan: patient usually take lasix at home and his SOB has been worsening, his BNP is normal, Echo show normal EF, DD and pulmonary HTN Continue diuresis with IV Lasix 40mg BID Continue to monitor input and output and electrolytes. (2) HTN (hypertension) Current Visit: Yes Status: Acute Plan: continue metoprolol
--- NOTE | 2024-08-22 12:20 | P.PN ---
Subjective Date of Service: 08/22/24 Chief Complaint: Acute respiratory failure Subjective: Improving (Patient is improving he is doing better now on nasal cannula oxygen 5 L) Review of Systems General: Weakness Respiratory: Shortness of Breath Physical Examination - Vital Signs Temperature: 97.1 F Blood Pressure: 133/83 Pulse: 87 Respirations: 22 Pulse Ox (%): 96 - Physical Exam General: Alert, Oriented x3, Mild distress Respiratory: Crackles/rales, Expiratory wheezes Cardiovascular: No edema, Regular rate/rhythm, Normal S1 S2 - Studies Medications List Reviewed: Yes Assessment And Plan - Current Problems (Diagnosis) (1) Acute lung injury Current Visit: Yes Status: Acute Plan: Patient has acute lung injury diastolic dysfunction mild pulmonary hypertension objectively improving oxygen requirements have declined reduce dose of steroid labs chemistries reviewed stable to be transferred to the floor
--- NOTE | 2024-08-22 13:39 | P.PN ---
Subjective Date of Service: 08/22/24 Chief Complaint: Acute respiratory failure Subjective: No chest pain. shortness of breath improving, off BiPap. No nausea or vomiting. No abdominal pain. No obvious bleeding. Looks comfortable in the bed. Objective: General appearance: Alert and comfortable CVS: Normal S1 and S2 Lungs: Clear to auscultation bilaterally Abdomen: Soft, bowel sounds present, no tenderness Extremities: lower extremity edema present Physical Examination - Vital Signs Temperature: 97.1 F Blood Pressure: 133/83 Pulse: 87 Respirations: 22 Pulse Ox (%): 96 - Studies Medications List Reviewed: Yes Assessment And Plan - Plan 1. Acute hypoxic respiratory failure; continue with BiPAP support PRN, nebs and steroids and antibiotics. 2. Metastatic prostate cancer; patient's PSA levels have gone back down to normal after chemotherapy. His oncologist at [facility] had put a halt on his chemotherapy 3. Acute diastolic congestive heart failure - echocardiogram showed 60-65% EF, G1 DD, mod TR and mod PHTN, -continue with aggressive diuresis -Creatinine trending up, monitor closely. 4. Anemia of chronic disease; continue monitoring H&H. 5. Cirrhosis; elevated coagulation profile 6. Elevated alkaline phosphatase; likely related bone metastasis; 7. Generalized weakness with cachexia; will encourage nutrition and physical therapy Plan Discussed with the patient and family at bedside, answered all questions.
[2024-08-22] MEDS: FUROSEMIDE 40 MG/4 ML VIAL IV SCH (20:01)
--- NOTE | 2024-08-23 01:03 | RAD REPORT ---
CLINICAL HISTORY: Chest pain. COMPARISON: None. TECHNIQUE: Single view AP chest radiograph(s). FINDINGS: Low lung volumes. Moderate diffuse pulmonary interstitial prominence. No pleural effusion. No pneumot horax. Nonenlarged cardiomediastinal silhouette. No significant osseous abnormality. IMPRESSION: Low lung volumes. Moderate diffuse pulmonary interstitial prominence. Differential includes interstit ial pulmonary edema in the appropriate clinical setting. Electronically signed by: Taya Barnes MD 08/22/2024 11:08 PM CDT Due to temporary technical issues with the PACS/ii4b reporting system, reports are being joelle d by the in-house radiologist without review as a courtesy to ensure prompt reporting the interpreting radiologist is fully responsible for the content of the report. Transcribed Date/Time: 08/23/2024 1:03 AM
[2024-08-23 05:54] LABS: Absolute Lymphocytes (CBC) 0.5 K/uL (0.7-4.9); Absolute Monocytes 0.4 K/uL (0.1-1.3); Absolute Neutrophil 15.3 K/uL (1.8-8.0); Basophils % 0.1 % (0-1.3); Hematocrit 38.5 % (39.6-49.0); Hemoglobin 13.1 g/dL (13.6-17.9); Lymphocytes % 2.8 % (15.3-44.8); MCH 31.4 pg (27.0-35.0); MCHC 34.1 g/dL (32.0-36.0); MCV 92.1 fL (80-100); MPV 9.4 fL (7.6-11.3); Monocytes % 2.5 % (3.3-12.3); Neutrophils % 94.6 % (41.7-73.7); Nucleated Red Blood Cells % 0.1 % (0-0); Platelets 185 thou/uL (152-406); RBC Red Blood Cell Count 4.18 M/uL (4.33-5.43); Red Cell Distribution Width 15.5 % (12.1-15.2)
[2024-08-23 06:10] LABS: Anion Gap 12.1 mEq/L (5.0-15.0); Potassium 4.1 mEq/L (3.5-5.1); Troponin High Sensitivity 21.6 pg/mL (<58.9)
--- NOTE | 2024-08-23 07:49 | RAD REPORT ---
EXAMINATION: ONE VIEW CHEST XR CLINICAL INDICATION: Resp faliur TECHNIQUE: Frontal chest projection is submitted. Examination is limited by patient positioning and t echnique. COMPARISON: 08/22/2024 FINDINGS: Extensive bilateral pulmonary opacities are present, unchanged. This may represent pulmonary edema or pneumonia. The heart is upper limit of normal in size. No displaced fractures identified. IMPRESSION: Stable chest since yesterday study.
--- NOTE | 2024-08-23 10:08 | P.PN ---
Subjective Date of Service: 08/23/24 Chief Complaint: Acute respiratory failure Subjective: No new changes, No C/O voiced, Tolerating diet, Ambulating, Improving Review of Systems 10-point ROS is otherwise unremarkable Physical Examination - Vital Signs Temperature: 97.5 F Blood Pressure: 148/79 Pulse: 68 Respirations: 26 Pulse Ox (%): 96 - Physical Exam General: Alert, In no apparent distress HEENT: Atraumatic, PERRLA, EOMI Neck: Supple, JVD not distended Respiratory: Clear to auscultation bilaterally, Normal air movement Cardiovascular: Regular rate/rhythm, Normal S1 S2 Gastrointestinal: Normal bowel sounds, No tenderness Musculoskeletal: No tenderness Integumentary: No rashes Neurological: Normal speech, Normal tone, Normal affect Lymphatics: No axilla or inguinal lymphadenopathy - Studies Medications List Reviewed: Yes Assessment And Plan - Current Problems (Diagnosis) (1) Congestive heart failure Current Visit: Yes Status: Acute Plan: patient usually take lasix at home and his SOB has been worsening, his BNP is normal, Echo show normal EF, DD and pulmonary HTN Continue diuresis with IV Lasix 40mg BID Continue to monitor input and output and electrolytes. (2) HTN (hypertension) Current Visit: Yes Status: Acute Plan: continue metoprolol 25 mg po BID
--- NOTE | 2024-08-23 12:52 | P.PN ---
Subjective Date of Service: 08/23/24 Chief Complaint: Acute respiratory failure Subjective: No chest pain. shortness of breath improving slowly. No nausea or vomiting. No abdominal pain. No obvious bleeding. Looks comfortable in the bed. Objective: General appearance: Alert and comfortable CVS: Normal S1 and S2 Lungs: Clear to auscultation bilaterally Abdomen: Soft, bowel sounds present, no tenderness Extremities: b/l lower extremity edema present, same as yesterday, 2-3+ Physical Examination - Vital Signs Temperature: 97.5 F Blood Pressure: 147/80 Pulse: 84 Respirations: 25 Pulse Ox (%): 95 - Studies Medications List Reviewed: Yes Assessment And Plan - Plan 1. Acute hypoxic respiratory failure; continue with BiPAP support PRN, nebs, wean off steroids, cont antibiotics. cont O2 via NC 2. Metastatic prostate cancer; patient's PSA levels have gone back down to normal after chemotherapy. His oncologist at [facility] had put a halt on his chemotherapy 3. Acute diastolic congestive heart failure - echocardiogram showed 60-65% EF, G1 DD, mod TR and mod PHTN, -continue with aggressive diuresis -Creatinine trending up, monitor closely. -Cardiology following. 4. Anemia of chronic disease; continue monitoring H&H. 5. Cirrhosis; elevated coagulation profile 6. Elevated alkaline phosphatase; likely related bone metastasis; 7. Generalized weakness with cachexia; will encourage nutrition and physical therapy Plan Discussed with the patient and family at bedside, answered all questions. Discussed with nursing staff and case management team
--- NOTE | 2024-08-23 12:54 | P.PN ---
Subjective Date of Service: 08/23/24 Chief Complaint: ARDS Subjective: Improving (Is improving he still has hypoxic at the bedside apparently he has some interstitial lung disease before) Review of Systems General: Weakness Physical Examination - Vital Signs Temperature: 97.5 F Blood Pressure: 147/80 Pulse: 84 Respirations: 25 Pulse Ox (%): 95 - Physical Exam General: Alert, In no apparent distress, Mild distress Neck: Supple Respiratory: Crackles/rales Cardiovascular: No edema, Regular rate/rhythm - Studies Medications List Reviewed: Yes Assessment And Plan - Current Problems (Diagnosis) (1) Acute lung injury Current Visit: Yes Status: Acute Plan: Patient is 79 years of age admitted with ARDS patient is currently improving according to the he has a history of interstitial lung disease patient was treated with docetaxel 2 doses may have contributed to his lung injury labs chemistries reviewed white count is declining x-rays perhaps a little bit better continue with supportive therapy show to p.o. prednisone tomorrow to be transferred to the floor
[2024-08-23] MEDS: CEFTRIAXONE 1,000 MG in NA CHLORIDE 0.9% 50 ML IVPB SCH (14:09)
[2024-08-23] MEDS: BENZONATATE 100 MG CAP PO PRN (20:35)
[2024-08-23] MEDS: DOXYCYCLINE 100 MG CAP PO SCH (20:35)
[2024-08-23] MEDS: predniSONE 20 MG TAB PO SCH (20:35)
[2024-08-24 06:20] LABS: Absolute Lymphocytes (CBC) 0.4 K/uL (0.7-4.9); Absolute Monocytes 0.5 K/uL (0.1-1.3); Absolute Neutrophil 11.3 K/uL (1.8-8.0); Basophils % 0.1 % (0-1.3); Hematocrit 38.8 % (39.6-49.0); Hemoglobin 13.4 g/dL (13.6-17.9); Lymphocytes % 3.4 % (15.3-44.8); MCH 31.4 pg (27.0-35.0); MCHC 34.4 g/dL (32.0-36.0); MCV 91.1 fL (80-100); MPV 9.9 fL (7.6-11.3); Monocytes % 4.3 % (3.3-12.3); Neutrophils % 92.2 % (41.7-73.7); Nucleated Red Blood Cells % 0.1 % (0-0); Platelets 162 thou/uL (152-406); RBC Red Blood Cell Count 4.26 M/uL (4.33-5.43); Red Cell Distribution Width 15.2 % (12.1-15.2)
[2024-08-24 06:35] LABS: Anion Gap 10.8 mEq/L (5.0-15.0); Potassium 3.8 mEq/L (3.5-5.1)
--- NOTE | 2024-08-24 08:40 | EKG ---
Test Date: 2024-08-22 Test Time: 21:12:28 Telemarketing Sales Representative: [facility] MEASUREMENT RESULTS: Intervals: Rate: 95 LA: 142 QRSD: 126 QT: 390 QTc: 490 [place]: P: 31 LA: 142 QRS: -36 T: 109 INTERPRETIVE STATEMENTS: Normal sinus rhythm Left axis deviation Left ventricular hypertrophy with QRS widening and repolarization abnormality Abnormal ECG Compared to ECG 08/20/2024 09:19:26 Left-axis deviation now present Sinus tachycardia no longer present Electronically Signed On 08-24-24 08:36:36 CDT by Seven Arthur
[2024-08-24] MEDS ORDERED: predniSONE 20 MG TAB PO SCH ×2 (09:00)
[2024-08-24 09:21] LABS: Blood Morphology Comment NOT SEEN (NOT SEEN); Differential Total Cells Count 100; Lymphocytes 4 % (15-42); Monocytes 4 % (0-10); Platelet Estimate ADEQ; Segmented Neutrophils 92 % (40-80)
--- NOTE | 2024-08-24 10:30 | P.PN ---
Subjective Date of Service: 08/24/24 Chief Complaint: ARDS Subjective: No new changes, No C/O voiced, Tolerating diet, Ambulating, Improving Review of Systems 10-point ROS is otherwise unremarkable Physical Examination - Vital Signs Temperature: 98.3 F Blood Pressure: 136/72 Pulse: 85 Respirations: 17 Pulse Ox (%): 93 - Physical Exam General: Alert, In no apparent distress HEENT: Atraumatic, PERRLA, EOMI Neck: Supple, JVD not distended Respiratory: Clear to auscultation bilaterally, Normal air movement Cardiovascular: Regular rate/rhythm, Normal S1 S2 Gastrointestinal: Normal bowel sounds, No tenderness Musculoskeletal: No tenderness Integumentary: No rashes Neurological: Normal speech, Normal tone, Normal affect Lymphatics: No axilla or inguinal lymphadenopathy - Studies Medications List Reviewed: Yes Assessment And Plan - Current Problems (Diagnosis) (1) Congestive heart failure Current Visit: Yes Status: Acute Plan: patient usually take lasix at home and his SOB has been worsening, his BNP is normal, Echo show normal EF, DD and pulmonary HTN Continue diuresis with IV Lasix 40mg BID, may switch to lasix 40 mg po BID in am add aldactone 25 mg daily add Entresto 24 mg po BID add Farxiga 10 mg daily on discharge. Continue to monitor input and output and electrolytes. (2) HTN (hypertension) Current Visit: Yes Status: Acute Plan: continue metoprolol 25 mg po BID
--- NOTE | 2024-08-24 11:10 | RAD REPORT ---
EXAMINATION: ONE VIEW CHEST XR CLINICAL INDICATION: ARDS TECHNIQUE: Frontal chest projection is submitted. Examination is limited by patient positioning and t echnique. COMPARISON: 08/23/2024 FINDINGS: Moderate bilateral pulmonary opacities have mildly worsened since comparison study. The heart is mild ly to moderately enlarged. No displaced fractures identified. IMPRESSION: Mild worsening in lung aeration seen since comparison study.
--- NOTE | 2024-08-24 12:17 | P.PN ---
Subjective Date of Service: 08/24/24 Chief Complaint: ARDS Subjective: No chest pain. shortness of breath improving slowly. No nausea or vomiting. No abdominal pain. No obvious bleeding. Looks comfortable in the bed. Poor oral intake Objective: General appearance: Alert and comfortable CVS: Normal S1 and S2 Lungs: Clear to auscultation bilaterally Abdomen: Soft, bowel sounds present, no tenderness Extremities: b/l lower extremity edema present, same as yesterday, 2-3+ Physical Examination - Vital Signs Temperature: 98.3 F Blood Pressure: 136/72 Pulse: 85 Respirations: 17 Pulse Ox (%): 93 - Studies Medications List Reviewed: Yes Assessment And Plan - Plan 1. Acute hypoxic respiratory failure; continue nebs, wean off steroids, cont antibiotics. cont O2 via NC 2. Metastatic prostate cancer; patient's PSA levels have gone back down to normal after chemotherapy. His oncologist at [facility] had put a halt on his chemotherapy 3. Acute diastolic congestive heart failure - echocardiogram showed 60-65% EF, G1 DD, mod TR and mod PHTN, -continue with aggressive diuresis -Creatinine stable, monitor closely. -Cardiology following. 4. Anemia of chronic disease; continue monitoring H&H. 5. Cirrhosis; elevated coagulation profile 6. Elevated alkaline phosphatase; likely related bone metastasis; 7. Generalized weakness with cachexia; will encourage nutrition and physical therapy Plan Discussed with the patient and family at bedside, answered all questions. Discussed with nursing staff and case management team, monitor in ICU for now
--- NOTE | 2024-08-24 12:30 | P.PN ---
Subjective Date of Service: 08/24/24 Chief Complaint: ARDS No change in patient's condition he does experience desat on minimal activity Review of Systems General: Weakness Respiratory: Shortness of Breath Physical Examination - Vital Signs Temperature: 98.3 F Blood Pressure: 136/72 Pulse: 85 Respirations: 17 Pulse Ox (%): 93 - Physical Exam General: Alert, Oriented x3, Mild distress Respiratory: Crackles/rales Cardiovascular: No edema, Regular rate/rhythm, Normal S1 S2 - Studies Medications List Reviewed: Yes Assessment And Plan - Current Problems (Diagnosis) (1) Acute lung injury Current Visit: Yes Status: Acute Plan: Patient has acute lung injury chest x-ray no change on diuretics white count is declining renal function improving vital signs stable on 4 L nasal cannula oxygen changed to p.o. Lasix tomorrow Qualifiers: Encounter type: subsequent encounter Qualified Code(s): S27.309D - Unspecified injury of lung, unspecified, subsequent encounter Plan to discharge in: Unknown
[2024-08-24] MEDS: SPIRONOLACTONE 25 MG TABLET PO SCH (13:18)
[2024-08-24] MEDS: SACUBITRIL/VALSARTAN 24/26 MG TAB PO SCH (19:42)
[2024-08-25 06:18] LABS: Absolute Lymphocytes (CBC) 0.6 K/uL (0.7-4.9); Absolute Monocytes 0.4 K/uL (0.1-1.3); Absolute Neutrophil 10.9 K/uL (1.8-8.0); Basophils % 0.3 % (0-1.3); Eosinophils % 0.2 % (0-4.4); Hematocrit 41.2 % (39.6-49.0); Lymphocytes % 4.6 % (15.3-44.8); MCH 31.1 pg (27.0-35.0); MCHC 34.1 g/dL (32.0-36.0); MCV 91.5 fL (80-100); MPV 10.1 fL (7.6-11.3); Monocytes % 3.3 % (3.3-12.3); Neutrophils % 91.6 % (41.7-73.7); Platelets 165 thou/uL (152-406); RBC Red Blood Cell Count 4.51 M/uL (4.33-5.43); Red Cell Distribution Width 15.3 % (12.1-15.2)
[2024-08-25 06:34] LABS: Anion Gap 10.8 mEq/L (5.0-15.0); Potassium 3.8 mEq/L (3.5-5.1)
[2024-08-25] MEDS: FUROSEMIDE 40 MG TABLET PO SCH (08:05)
--- NOTE | 2024-08-25 08:51 | RAD REPORT ---
EXAMINATION: ONE VIEW CHEST XR CLINICAL INDICATION: Male, 79 years old.,ARDS TECHNIQUE: Frontal chest projection is submitted. Examination is limited by patient positioning and t echnique. COMPARISON: 08/24/2024 FINDINGS: Stable patchy bilateral airspace opacities, more confluent in the left apex and right midlung. Decrea sed inspiratory effort again demonstrates evaluation. Central interstitial prominence. No pneumothorax or sizable effusion. The heart is normal in size. Mediastinal contours are unremarkable. IMPRESSION: Stable findings suggestive of pulmonary edema or ARDS.
[2024-08-25] MEDS: LORAZEPAM 0.5 MG TABLET PO PRN (10:20)
--- NOTE | 2024-08-25 10:55 | P.PN ---
Subjective Date of Service: 08/25/24 Chief Complaint: ARDS Patient feels a little better but he is getting increasingly anxious desat on minimal activity Review of Systems General: Weakness Respiratory: Shortness of Breath Physical Examination - Vital Signs Temperature: 97.8 F Blood Pressure: 109/71 Pulse: 74 Respirations: 18 Pulse Ox (%): 97 - Physical Exam General: Alert, Oriented x3, Mild distress Respiratory: Clear to auscultation bilaterally, Diminished, Crackles/rales Cardiovascular: No edema, Regular rate/rhythm - Studies Microbiology Data (last 24 hrs): 08/20/24 10:35 Blood - Blood Aerobic Blood Culture - Final No growth in 5 days. 08/20/24 10:35 Blood - Blood Anaerobic Blood Culture - Final No growth in 5 days. Medications List Reviewed: Yes Assessment And Plan - Current Problems (Diagnosis) (1) Acute lung injury Current Visit: Yes Status: Acute Plan: Patient admitted with acute lung injury complaining of anxiety oxygen requirements have not increased she is on 5 L renal function improving white count declining no change in present medication add hydroxyzine 25 mg twice daily for now can increase as tolerated this is for his anxiety Qualifiers: Encounter type: subsequent encounter Qualified Code(s): S27.309D - Unspecified injury of lung, unspecified, subsequent encounter
[2024-08-25] MEDS: hydrOXYzine HCL 25 MG TAB PO SCH (12:21)
--- NOTE | 2024-08-25 12:55 | P.PN ---
Subjective Date of Service: 08/25/24 Chief Complaint: ARDS Subjective: No chest pain. shortness of breath improving slowly, feels anxious. No nausea or vomiting. No abdominal pain. No obvious bleeding. Looks comfortable in the bed. Poor oral intake Objective: General appearance: Alert and comfortable CVS: Normal S1 and S2 Lungs: Clear to auscultation bilaterally Abdomen: Soft, bowel sounds present, no tenderness Extremities: b/l lower extremity edema present, no significnat improvement, 2+ Physical Examination - Vital Signs Temperature: 97.8 F Blood Pressure: 109/71 Pulse: 74 Respirations: 18 Pulse Ox (%): 97 - Studies Microbiology Data (last 24 hrs): 08/20/24 10:54 Blood - Blood Aerobic Blood Culture - Final No growth in 5 days. 08/20/24 10:54 Blood - Blood Anaerobic Blood Culture - Final No growth in 5 days. 08/20/24 10:35 Blood - Blood Aerobic Blood Culture - Final No growth in 5 days. 08/20/24 10:35 Blood - Blood Anaerobic Blood Culture - Final No growth in 5 days. Medications List Reviewed: Yes Assessment And Plan - Plan 1. Acute hypoxic respiratory failure; continue nebs, wean off steroids, cont antibiotics. cont O2 via NC 2. Metastatic prostate cancer; patient's PSA levels have gone back down to normal after chemotherapy. His oncologist at [facility] had put a halt on his chemotherapy 3. Acute diastolic congestive heart failure - echocardiogram showed 60-65% EF, G1 DD, mod TR and mod PHTN, -continue with aggressive diuresis, changed to PO as per cardiology -Creatinine stable, monitor closely. -Cardiology following. -entresto and aldactone as per cardiology 4. Anemia of chronic disease; continue monitoring H&H. 5. Cirrhosis; elevated coagulation profile 6. Elevated alkaline phosphatase; likely related bone metastasis; 7. Generalized weakness with cachexia; will encourage nutrition and physical therapy Plan Discussed with the patient and family at bedside, answered all questions. Discussed with nursing staff and case management team, monitor in ICU for now
[2024-08-25] MEDS: GUAIFENESIN/DM 5 ML UCUP PO PRN (17:01)
[2024-08-26 05:48] LABS: Absolute Basophils 0.1 K/uL (0-0.5); Absolute Eosinophils 0.6 K/uL (0-0.5); Absolute Lymphocytes (CBC) 0.4 K/uL (0.7-4.9); Absolute Monocytes 0.3 K/uL (0.1-1.3); Absolute Neutrophil 8.8 K/uL (1.8-8.0); Basophils % 0.7 % (0-1.3); Eosinophils % 5.6 % (0-4.4); Hematocrit 41.8 % (39.6-49.0); Hemoglobin 14.4 g/dL (13.6-17.9); Lymphocytes % 3.8 % (15.3-44.8); MCH 31.9 pg (27.0-35.0); MCHC 34.5 g/dL (32.0-36.0); MCV 92.6 fL (80-100); MPV 9.7 fL (7.6-11.3); Monocytes % 2.5 % (3.3-12.3); Neutrophils % 87.4 % (41.7-73.7); Nucleated Red Blood Cells % 0.1 % (0-0); Platelets 145 thou/uL (152-406); RBC Red Blood Cell Count 4.52 M/uL (4.33-5.43); Red Cell Distribution Width 15.3 % (12.1-15.2)
[2024-08-26] MEDS: LEVOTHYROXINE SOD 0.088 MG TAB PO SCH (05:53)
[2024-08-26 05:56] LABS: Anion Gap 11.5 mEq/L (5.0-15.0); Potassium 3.5 mEq/L (3.5-5.1)
[2024-08-26] MEDS: POTASSIUM CL SA 10 MEQ TAB PO ONE (08:17)
[2024-08-26] MEDS: predniSONE 20 MG TAB PO SCH (08:17)
--- NOTE | 2024-08-26 11:31 | P.PN ---
Subjective Date of Service: 08/26/24 Chief Complaint: ARDS/anxiety Patient is anxiety level is better he still desats on minimal activity his BiPAP feels a little better planing some tightness in the chest Review of Systems General: Weakness Respiratory: Shortness of Breath Physical Examination - Vital Signs Temperature: 98.0 F Blood Pressure: 100/61 Pulse: 77 Respirations: 20 Pulse Ox (%): 94 - Physical Exam General: Alert, Oriented x3, Mild distress Respiratory: Clear to auscultation bilaterally, Normal air movement Cardiovascular: No edema, Regular rate/rhythm - Studies Microbiology Data (last 24 hrs): 08/20/24 10:54 Blood - Blood Aerobic Blood Culture - Final No growth in 5 days. 08/20/24 10:54 Blood - Blood Anaerobic Blood Culture - Final No growth in 5 days. 08/20/24 10:35 Blood - Blood Aerobic Blood Culture - Final No growth in 5 days. 08/20/24 10:35 Blood - Blood Anaerobic Blood Culture - Final No growth in 5 days. Medications List Reviewed: Yes Assessment And Plan - Current Problems (Diagnosis) (1) Acute lung injury Current Visit: Yes Status: Acute Plan: Patient seems to have stabilized oxygen requirements range from 4 to 5 L anxiety is under control count is now down to normal renal function is improving stable for transfer to the floor pressure is little on the lower side to monitor albuterol as needed Qualifiers: Encounter type: subsequent encounter Qualified Code(s): S27.309D - Unspecified injury of lung, unspecified, subsequent encounter
--- NOTE | 2024-08-26 12:06 | P.PN ---
Subjective Date of Service: 08/26/24 Chief Complaint: ARDS/anxiety Subjective: No chest pain. shortness of breath improving slowly, feels anxious. No nausea or vomiting. No abdominal pain. No obvious bleeding. Looks comfortable in the bed. Poor oral intake Objective: General appearance: Alert and comfortable CVS: Normal S1 and S2 Lungs: Clear to auscultation bilaterally Abdomen: Soft, bowel sounds present, no tenderness Extremities: b/l lower extremity edema present, slow improvement, 1+ Physical Examination - Vital Signs Temperature: 98.0 F Blood Pressure: 100/61 Pulse: 77 Respirations: 20 Pulse Ox (%): 94 - Studies Microbiology Data (last 24 hrs): 08/20/24 10:54 Blood - Blood Aerobic Blood Culture - Final No growth in 5 days. 08/20/24 10:54 Blood - Blood Anaerobic Blood Culture - Final No growth in 5 days. 08/20/24 10:35 Blood - Blood Aerobic Blood Culture - Final No growth in 5 days. 08/20/24 10:35 Blood - Blood Anaerobic Blood Culture - Final No growth in 5 days. Medications List Reviewed: Yes Assessment And Plan - Plan 1. Acute hypoxic respiratory failure; continue nebs, wean off steroids, cont antibiotics. cont O2 via NC 2. Metastatic prostate cancer; patient's PSA levels have gone back down to normal after chemotherapy. His oncologist at [facility] had put a halt on his chemotherapy 3. Acute diastolic congestive heart failure - echocardiogram showed 60-65% EF, G1 DD, mod TR and mod PHTN, -continue with aggressive diuresis, changed to PO as per cardiology -Creatinine stable, monitor closely. -Cardiology following. -entresto and aldactone as per cardiology 4. Anemia of chronic disease; continue monitoring H&H. 5. Cirrhosis; elevated coagulation profile 6. Elevated alkaline phosphatase; likely related bone metastasis; 7. Generalized weakness with cachexia; will encourage nutrition and physical therapy Plan Discussed with the patient and family at bedside, answered all questions. Discussed with nursing staff and case management team, Tx out of ICU for now
[2024-08-26] MEDS: ALBUTEROL 2.5 MG/3 ML NEB SOL NEB PRN (12:33)
[2024-08-26] MEDS ORDERED: ALBUTEROL 2.5 MG/3 ML NEB SOL NEB SCH (13:00)
[2024-08-26] MEDS: DEXMEDETOMIDINE HCL 1,000 MCG in NA CHLORIDE 0.9% 490 ML IV SCH (14:14)
[2024-08-26] MEDS: MIDODRINE HCL 5 MG TABLET PO PRN (15:19)
[2024-08-26] MEDS: NOREPINEPHRINE BITARTRATE/D5W 4 MG/250 ML KIT IV ONE (15:39)
[2024-08-26] MEDS: NOREPINEPHRINE 4 MG in D5W 250 ML IV SCH (15:54)
[2024-08-26] MEDS: Mupirocin NASAL 2 APPL/1 GM TUBE NAS SCH (19:56)
[2024-08-26] MEDS ORDERED: MIDODRINE HCL 5 MG TABLET PO SCH (21:00)
--- NOTE | 2024-08-26 22:41 | RAD REPORT ---
EXAMINATION: ONE VIEW CHEST XR CLINICAL INDICATION: Male, 79 years old.,PICC placement TECHNIQUE: Frontal chest projection is submitted. Examination is limited by patient positioning and t echnique. COMPARISON: 08/17/2024 FINDINGS: Right arm PICC has been placed with catheter tip at the level of the upper SVC. Stable patchy bilater al airspace opacities with overall volume loss, and central interstitial prominence. No pneumothorax or sizable effusion. The heart is normal in size. Mediastinal contours are unremarkable. IMPRESSION: Right arm PICC tip terminates in the level of the upper SVC. Otherwise stable lung findings, which ma y reflect multifocal pneumonia, or sequelae of interstitial lung disease.
[2024-08-26] MEDS: ACETAMINOPHEN 500 MG TAB PO PRN (23:20)
[2024-08-27 05:26] LABS: Absolute Eosinophils 0.8 K/uL (0-0.5); Absolute Lymphocytes (CBC) 0.6 K/uL (0.7-4.9); Absolute Monocytes 0.3 K/uL (0.1-1.3); Absolute Neutrophil 9.5 K/uL (1.8-8.0); Basophils % 0.1 % (0-1.3); Eosinophils % 7.1 % (0-4.4); Hematocrit 39.5 % (39.6-49.0); Hemoglobin 13.5 g/dL (13.6-17.9); Lymphocytes % 5.5 % (15.3-44.8); MCH 31.6 pg (27.0-35.0); MCHC 34.3 g/dL (32.0-36.0); MCV 92.1 fL (80-100); MPV 10.1 fL (7.6-11.3); Monocytes % 2.4 % (3.3-12.3); Neutrophils % 84.9 % (41.7-73.7); Platelets 132 thou/uL (152-406); RBC Red Blood Cell Count 4.29 M/uL (4.33-5.43); Red Cell Distribution Width 15.1 % (12.1-15.2)
[2024-08-27 05:37] LABS: Anion Gap 9.7 mEq/L (5.0-15.0); Potassium 3.7 mEq/L (3.5-5.1)
[2024-08-27 10:34] LABS: Arterial Blood Carboxyhemoglob 1.9 % (0-1.5); Blood Gas Oxyhemoglobin 93.7 % (94-97); Blood O2 Saturation 96.3 % (92-98.5)
[2024-08-27 10:35] LABS: Blood Gas THB 15.2 g/dl (12-18)
[2024-08-27] MEDS: FUROSEMIDE 40 MG TABLET PO SCH (10:35)
--- NOTE | 2024-08-27 10:45 | P.PN ---
Subjective Date of Service: 08/27/24 Chief Complaint: ARDS/anxiety Subjective: No chest pain. shortness of breath improving slowly. No nausea or vomiting. No abdominal pain. No obvious bleeding. Looks comfortable in the bed. Objective: General appearance: Alert and comfortable CVS: Normal S1 and S2 Lungs: Clear to auscultation bilaterally Abdomen: Soft, bowel sounds present, no tenderness Extremities: b/l lower extremity edema present, slow improvement, 1+ Physical Examination - Vital Signs Temperature: 98.0 F Blood Pressure: 111/78 Pulse: 97 Respirations: 26 Pulse Ox (%): 97 - Studies Medications List Reviewed: Yes Assessment And Plan - Plan 79 yo patient admitted with acute respiratory failure and CHF, he was given diuretics, started on antibiotics as well, he was slowly improving, plan was to transfer him out of ICU yesterday, he was getting more agitated, started on Precedex, his blood pressure dropped, all heart failure medications discontinued, his blood pressure is better now, restarting Lasix again, can restart other heart failure medications tomorrow, monitor in ICU for now. 1. Acute hypoxic respiratory failure; continue nebs, wean off steroids, cont antibiotics, last dose tomorrow. cont O2 via NC 2. Metastatic prostate cancer; patient's PSA levels have gone back down to normal after chemotherapy. His oncologist at [facility] had put a halt on his chemotherapy 3. Acute diastolic congestive heart failure - echocardiogram showed 60-65% EF, G1 DD, mod TR and mod PHTN, -continue with aggressive diuresis, changed to PO as per cardiology -Creatinine stable, monitor closely. -Cardiology following. -entresto and aldactone as per cardiology, held from yesterday due to hypotension 4. Anemia of chronic disease; continue monitoring H&H. 5. Cirrhosis; elevated coagulation profile 6. Elevated alkaline phosphatase; likely related bone metastasis; 7. Generalized weakness with cachexia; will encourage nutrition and physical therapy Plan Discussed with the patient and family at bedside, answered all questions. Discussed with nursing staff and case management team, monitor in ICU for now
[2024-08-27] MEDS: FUROSEMIDE 20 MG/ 2ML VIAL IV SCH (11:09)
[2024-08-27] MEDS: ONDANSETRON 4 MG/2 ML VIAL IV PRN (17:08)
[2024-08-27] MEDS: LORazepam 2 MG/ML VIAL IV PRN (20:05)
[2024-08-27] MEDS: DOXYCYCLINE 100 MG in NA CHLORIDE 0.9% 100 ML IVPB SCH (23:19)
[2024-08-28 05:55] LABS: Absolute Basophils 0.1 K/uL (0-0.5); Absolute Eosinophils 0.3 K/uL (0-0.5); Absolute Lymphocytes (CBC) 0.5 K/uL (0.7-4.9); Absolute Monocytes 0.3 K/uL (0.1-1.3); Absolute Neutrophil 12.2 K/uL (1.8-8.0); Basophils % 0.4 % (0-1.3); Hematocrit 42.3 % (39.6-49.0); Hemoglobin 14.2 g/dL (13.6-17.9); Lymphocytes % 3.6 % (15.3-44.8); MCH 31.4 pg (27.0-35.0); MCHC 33.5 g/dL (32.0-36.0); MCV 93.8 fL (80-100); MPV 10.3 fL (7.6-11.3); Monocytes % 2.3 % (3.3-12.3); Neutrophils % 91.7 % (41.7-73.7); Platelets 185 thou/uL (152-406); RBC Red Blood Cell Count 4.52 M/uL (4.33-5.43); Red Cell Distribution Width 15.5 % (12.1-15.2)
[2024-08-28 06:02] LABS: Magnesium 2.8 mg/dL (1.6-2.4)
[2024-08-28 09:23] LABS: Blood Morphology Comment NOT SEEN (NOT SEEN); Platelet Estimate ADEQ; Platelets Clumped FEW; White Blood Cell Scan OK (OK)
--- NOTE | 2024-08-28 09:38 | P.PN ---
Subjective Date of Service: 08/28/24 Chief Complaint: ARDS/anxiety Subjective: New changes (Patient is more short of breath.) Review of Systems 10-point ROS is otherwise unremarkable Physical Examination - Vital Signs Temperature: 97.9 F Blood Pressure: 118/73 Pulse: 110 Respirations: 25 Pulse Ox (%): 96 - Physical Exam General: Alert, In no apparent distress HEENT: Atraumatic, PERRLA, EOMI Neck: Supple, JVD not distended Respiratory: Clear to auscultation bilaterally, Normal air movement Cardiovascular: Regular rate/rhythm, Normal S1 S2 Gastrointestinal: Normal bowel sounds, No tenderness Musculoskeletal: No tenderness Integumentary: No rashes Neurological: Normal speech, Normal tone, Normal affect Lymphatics: No axilla or inguinal lymphadenopathy - Studies Medications List Reviewed: Yes Assessment And Plan - Current Problems (Diagnosis) (1) Congestive heart failure Current Visit: Yes Status: Acute Plan: patient usually take lasix at home and his SOB has been worsening, his BNP is normal, Echo show normal EF, DD and pulmonary HTN patient is more short of breath, will switch to Lasix drip at 5 mg/hr and monitor symptoms. Continue to monitor input and output and electrolytes. (2) HTN (hypertension) Current Visit: Yes Status: Acute Plan: continue metoprolol 25 mg po BID
[2024-08-28] MEDS: FUROSEMIDE 100 MG in NA CHLORIDE 0.9% 90 ML IV SCH (09:44)
[2024-08-28] MEDS: clonazePAM 0.5 MG TAB PO PRN (12:14)
--- NOTE | 2024-08-28 12:40 | P.PN ---
Subjective Date of Service: 08/28/24 Chief Complaint: ARDS/anxiety No significant change in patient's condition remains anxious unable to tolerate BiPAP Review of Systems General: Weakness Respiratory: Shortness of Breath Physical Examination - Vital Signs Temperature: 97.9 F Blood Pressure: 117/71 Pulse: 116 Respirations: 42 Pulse Ox (%): 91 - Physical Exam General: Alert, Oriented x3, Moderate distress Respiratory: Clear to auscultation bilaterally, Diminished Cardiovascular: No edema, Regular rate/rhythm, Normal S1 S2 - Studies Medications List Reviewed: Yes Assessment And Plan - Current Problems (Diagnosis) (1) Acute lung injury Current Visit: Yes Status: Acute Plan: Patient has acute lung injury discussed with the patient the patient he does not want to be on a BiPAP apparently the family members are considering hospice care renal function is slightly worse prognosis poor I will also added low-dose clonazepam is on a Lasix drip Qualifiers: Encounter type: subsequent encounter Qualified Code(s): S27.309D - Unspecified injury of lung, unspecified, subsequent encounter
[2024-08-29 06:13] LABS: Absolute Basophils 0.1 K/uL (0-0.5); Absolute Eosinophils 0.8 K/uL (0-0.5); Absolute Lymphocytes (CBC) 0.6 K/uL (0.7-4.9); Absolute Monocytes 0.4 K/uL (0.1-1.3); Absolute Neutrophil 11.1 K/uL (1.8-8.0); Basophils % 0.5 % (0-1.3); Eosinophils % 6.4 % (0-4.4); Hemoglobin 14.2 g/dL (13.6-17.9); Lymphocytes % 4.3 % (15.3-44.8); MCH 31.3 pg (27.0-35.0); MCHC 33.1 g/dL (32.0-36.0); MCV 94.5 fL (80-100); MPV 10.2 fL (7.6-11.3); Neutrophils % 85.8 % (41.7-73.7); Nucleated Red Blood Cells % 0.1 % (0-0); Platelets 171 thou/uL (152-406); RBC Red Blood Cell Count 4.55 M/uL (4.33-5.43)
[2024-08-29 06:25] LABS: Anion Gap 8.8 mEq/L (5.0-15.0); Potassium 3.8 mEq/L (3.5-5.1)
[2024-08-29] MEDS: KCL 20 MEQ/100 mL IVPB 20 MEQ/100 ML BAG IV SCH (06:38)
--- NOTE | 2024-08-29 09:53 | RAD REPORT ---
EXAMINATION: CT Thorax Wo Con CLINICAL INDICATION: Male, 79 years old. [facility] MAIN Hypoxemia Y TECHNIQUE: Axial CT scan of the chest without intravenous contrast. Multiplanar reformats were genera mani and reviewed. One or more of the following dose reduction techniques were used: Automated exposure control, adjustment of the mA and/or kV according patient size, and/or iterative reconstruct ion. Unless otherwise specified, incidental findings do not require dedicated imaging follow-up. COMPARISON: 12/17/2021 CT chest. Chest radiographs 08/26/2024 dating back to 08/22/2024 FINDINGS: LOWER NECK: Visualized thyroid gland and soft tissues are normal. Right arm PICC in place. LUNGS: Interlobular and intralobular septal thickening with patchy central predominant groundglass an d alveolar opacities. Background biapical changes of scarring and mild emphysema. PLEURA: No pleural effusion. No pneumothorax. . MEDIASTINUM AND LYMPH NODES: Mild pneumopericardium. No mediastinal mass or fluid collection. Normal size mediastinal, hilar, and axillary lymph nodes. OSSEOUS STRUCTURES AND CHEST WALL: Patchy sclerotic lesions throughout the vertebrae, ribs, and liz um. No evidence of pathologic fracture. UPPER ABDOMEN: Multiple fluid density lesions, largest measuring 3.4 cm in the left lobe IMPRESSION: Patchy central predominant groundglass and alveolar opacities with background interstitial prominence . Findings may relate to pulmonary edema although superimposed infection cannot be excluded. Extensive osseous sclerotic lesions concerning for metastatic disease. Mild pneumopericardium, nonspecific. Numerous hepatic cysts incidentally noted.
--- NOTE | 2024-08-29 10:32 | P.PN ---
Subjective Date of Service: 08/29/24 Chief Complaint: ARDS/anxiety Subjective: New changes (Patient breathing status still bad,) Review of Systems 10-point ROS is otherwise unremarkable Physical Examination - Vital Signs Temperature: 98.9 F Blood Pressure: 105/71 Pulse: 125 Respirations: 28 Pulse Ox (%): 97 - Physical Exam General: Alert, In no apparent distress HEENT: Atraumatic, PERRLA, EOMI Neck: Supple, JVD not distended Respiratory: Clear to auscultation bilaterally, Normal air movement Cardiovascular: Regular rate/rhythm, Normal S1 S2 Gastrointestinal: Normal bowel sounds, No tenderness Musculoskeletal: No tenderness Integumentary: No rashes Neurological: Normal speech, Normal tone, Normal affect Lymphatics: No axilla or inguinal lymphadenopathy - Studies Medications List Reviewed: Yes Assessment And Plan - Current Problems (Diagnosis) (1) Congestive heart failure Current Visit: Yes Status: Acute Plan: despite extensive effort to diurese patient but he is still very SOB, patient overall health status is very poor, and he optioned to hospice care. stop lasix drip and switch to lasix 20 mg po q8 hours start lopressor 25 mg po BID Make Midodrine scheduled to help with BP Echo show normal EF, DD and pulmonary HTN (2) HTN (hypertension) Current Visit: Yes Status: Acute Plan: continue metoprolol 25 mg po BID
[2024-08-29] MEDS: MIDODRINE HCL 5 MG TABLET PO SCH (11:05)
[2024-08-29] MEDS: METOPROLOL TAR 25 MG TAB PO SCH (12:11)
[2024-08-29] MEDS: MORPHINE 2 MG/ML SYR IV PRN (12:31)
[2024-08-29] MEDS: FUROSEMIDE 20 MG TABLET PO SCH (13:47)
[2024-08-29] MEDS ORDERED: MIDODRINE HCL 5 MG TABLET PO SCH (14:00)
[2024-08-29] MEDS ORDERED: ALBUMIN HUMAN 25% 12.5 GM, FUROSEMIDE 100 MG in NA CHLORIDE 0.9% 40 ML IV SCH (18:00)
[2024-08-30] MEDS ORDERED: FUROSEMIDE 40 MG/4 ML VIAL IV SCH (01:00)
[2024-08-30 05:59] LABS: Absolute Basophils 0.1 K/uL (0-0.5); Absolute Eosinophils 0.4 K/uL (0-0.5); Absolute Lymphocytes (CBC) 0.6 K/uL (0.7-4.9); Absolute Monocytes 0.5 K/uL (0.1-1.3); Basophils % 0.7 % (0-1.3); Eosinophils % 2.2 % (0-4.4); Hematocrit 44.7 % (39.6-49.0); Hemoglobin 14.7 g/dL (13.6-17.9); Lymphocytes % 3.6 % (15.3-44.8); MCH 31.2 pg (27.0-35.0); MCHC 32.8 g/dL (32.0-36.0); MPV 10.5 fL (7.6-11.3); Neutrophils % 90.5 % (41.7-73.7); Platelets 196 thou/uL (152-406); Red Cell Distribution Width 15.7 % (12.1-15.2)
[2024-08-30 06:10] LABS: Anion Gap 11.9 mEq/L (5.0-15.0); Potassium 3.9 mEq/L (3.5-5.1)
[2024-08-30 06:19] VITALS: BMI 42.5
[2024-08-30 09:27] VITALS: O2SAT 100
[2024-08-30 12:07] VITALS: TEMP 97.1
[2024-08-30 13:06] VITALS: BP 87/77
--- NOTE | 2024-09-07 12:45 | P.PN ---
Date of Service: 08/28/24 Subjective Patient continues to decline unfortunately patient does not want have his BiPAP on. Will speak with family regarding prognosis. Physical Examination - Vital Signs Reviewed - Physical Exam General: Alert, In no apparent distress, Oriented x3, Obese Respiratory: Crackles/rales, Expiratory wheezes Cardiovascular: Regular rate/rhythm, Normal S1 S2, No murmurs Gastrointestinal: Normal bowel sounds, Soft and benign, No tenderness, Distended Musculoskeletal: No clubbing, No tenderness, Swelling Integumentary: No rashes, Tenderness/swelling Neurological: Generalized weakness but cranial nerves otherwise intact. Assessment & Plan - Problems (Diagnosis) (1) Acute hypoxic respiratory failure Current Visit: Yes Status: Acute (2) Pneumonia Current Visit: Yes Status: Acute (3) Prostate cancer metastatic to bone Current Visit: Yes Status: Acute (4) Congestive heart failure Current Visit: Yes Status: Acute (5) Generalized weakness and cachexia Current Visit: Yes Status: Acute - Plan Continue with plan of care as mentioned below: 1. Acute hypoxic respiratory failure; Patient refusing BiPAP in considering comfort measures. Will continue with high-flow oxygen / wall oxygen. Continue with nebs along with steroids and antibiotics. 2. Metastatic prostate cancer; patient's PSA levels have gone back down to normal after chemotherapy. His oncologist at [facility] had put a halt on his chemotherapy 3. Congestive heart failure; repeat echocardiogram pending and will continue with aggressive diuresing; will check nutritional levels and albumin levels to make sure no third spacing 4. Anemia of chronic disease; continue monitoring H&H. Check iron studies and B12 studies also check reticulocyte count 5. Cirrhosis; elevated coagulation profile as well as hypoalbuminemia and slightly elevated bilirubin. 6. Elevated alkaline phosphatase; likely related bone metastasis; 7. Generalized weakness with cachexia; will encourage nutrition and physical therapy 8. GI DVT prophylaxis Discharge Plan: SNF Plan to discharge in: Greater than 2 days - Advance Directives Does patient have a Living Will: No Does patient have a Durable POA for Healthcare: No Critical Care: Yes Time Spent Managing PTS Care (In Minutes): 35
--- NOTE | 2024-09-07 12:50 | P.PN ---
Date of Service: 08/29/24 Subjective Family agreeable with hospice. Will arrange for it to get set up in a.m.. Physical Examination - Vital Signs Reviewed - Physical Exam General: Alert, In no apparent distress, Oriented x3, Obese Respiratory: Crackles/rales, Expiratory wheezes Cardiovascular: Regular rate/rhythm, Normal S1 S2, No murmurs Gastrointestinal: Normal bowel sounds, Soft and benign, No tenderness, Distended Musculoskeletal: No clubbing, No tenderness, Swelling Integumentary: No rashes, Tenderness/swelling Neurological: Generalized weakness but cranial nerves otherwise intact. Assessment & Plan - Problems (Diagnosis) (1) Acute hypoxic respiratory failure Current Visit: Yes Status: Acute (2) Pneumonia Current Visit: Yes Status: Acute (3) Prostate cancer metastatic to bone Current Visit: Yes Status: Acute (4) Congestive heart failure Current Visit: Yes Status: Acute (5) Generalized weakness and cachexia Current Visit: Yes Status: Acute - Plan Continue with plan of care as mentioned below: 1. Acute hypoxic respiratory failure; Patient refusing BiPAP in considering comfort measures. Will continue with high-flow oxygen / wall oxygen. Continue with nebs along with steroids and antibiotics. Plan for hospice 2. Metastatic prostate cancer; patient's PSA levels have gone back down to normal after chemotherapy. His oncologist at [facility] had put a halt on his chemotherapy 3. Congestive heart failure; repeat echocardiogram pending and will continue with aggressive diuresing; will check nutritional levels and albumin levels to make sure no third spacing 4. Anemia of chronic disease; continue monitoring H&H. Check iron studies and B12 studies also check reticulocyte count 5. Cirrhosis; elevated coagulation profile as well as hypoalbuminemia and slightly elevated bilirubin. 6. Elevated alkaline phosphatase; likely related bone metastasis; 7. Generalized weakness with cachexia; will encourage nutrition and physical therapy 8. GI DVT prophylaxis Discharge Plan: SNF Plan to discharge in: Greater than 2 days - Advance Directives Does patient have a Living Will: No Does patient have a Durable POA for Healthcare: No Critical Care: Yes Time Spent Managing PTS Care (In Minutes): 35
--- NOTE | 2024-09-07 12:51 | P.DS ---
Discharge Date: 08/30/24 Disposition: HOSPICE-MEDICAL FACILITY Discharge Condition: FAIR Reason for Admission: ARDS/anxiety - Problems (1) Acute hypoxic respiratory failure Status: Acute (2) Pneumonia Status: Acute (3) Prostate cancer metastatic to bone Status: Chronic (4) Congestive heart failure Status: Acute Brief History of Present Illness: Patient is a 79-year-old gentleman who came to the hospital with shortness of breath. Patient is a history of prostate cancer and has been on chemotherapy. Patient's PSA has gone down quite significantly since starting chemotherapy. Patient looks to be fluid overloaded and came into the ER on August 08. Patient was worked up with CT PE protocol which came back negative and patient was discharged home. Patient has had fluid retention and has had abdominal distention and lower extremity edema. Patient has had progressive worsening shortness of breath so the patient told his to bring him into the hospital. Patient was placed on BiPAP and has continued on BiPAP throughout the emergency room stay. Plan is to admit the patient to the ICU for closer monitoring. Hospital Course: Patient did not improve during hospitalization. Patient did not want to wear BiPAP any longer. Patient proceeded with hospice care. Vital Signs/Physical Exam: Temp Pulse Resp BP Pulse Ox 97.1 F 106 H 22 H 87/77 L 94 08/30/24 12:00 08/30/24 13:00 08/30/24 13:00 08/30/24 13:00 08/30/24 13:00 General: Alert, In no apparent distress, Oriented x3 Laboratory Data at Discharge: WBC 16.50 thou/uL (4.3-10.9) H 08/30/24 05:20 Hgb 14.7 g/dL (13.6-17.9) 08/30/24 05:20 Hct 44.7 % (39.6-49.0) 08/30/24 05:20 Plt Count 196 thou/uL (152-406) 08/30/24 05:20 PT 15.9 SECONDS (10-13.0) H 08/20/24 10:20 INR 1.42 08/20/24 10:20 APTT Cancelled 08/24/24 13:00 Sodium 142 mEq/L (136-145) 08/30/24 05:20 Potassium 3.9 mEq/L (3.5-5.1) 08/30/24 05:20 BUN 68 mg/dL (7-18) H 08/30/24 05:20 Creatinine 1.49 mg/dL (0.70-1.30) H 08/30/24 05:20 Glucose 129 mg/dL (74-106) H 08/30/24 05:20 Phosphorus 4.0 mg/dL (2.5-4.9) 08/28/24 05:25 Magnesium 2.8 mg/dL (1.6-2.4) H 08/28/24 05:25 Total Bilirubin 0.5 mg/dL (0.2-1.0) 08/22/24 05:17 AST 35 U/L (15-37) 08/22/24 05:17 ALT 38 U/L (16-61) 08/22/24 05:17 Alkaline Phosphatase 329 U/L (45-117) H 08/22/24 05:17 Home Medications: Amlodipine [Norvasc*] 5 mg PO DAILY 08/20/24 Aspirin 81 mg PO DAILY 08/20/24 Darolutamide [Nubeqa] 2 tab PO BID 08/20/24 Furosemide 40 mg PO DAILY 08/20/24 Gabapentin 300 mg PO BEDTIME PRN 08/20/24 Hydrocodone 10/APAP 325 [[place] 10/325*] 1 tab PO Q6H PRN 08/20/24 Levothyroxine [Synthroid*] 88 mcg PO DAILY 08/20/24 Losartan Potassium 100 mg PO DAILY 08/20/24 Metoprolol Tartrate 25 mg PO DAILY 08/20/24 Olanzapine [Zyprexa] 5 mg PO BEDTIME 08/20/24 Polyethylene Glycol 3350 [Miralax] 17 gm PO DAILY 08/20/24 Prednisone [Nick] 5 mg PO DAILY 08/20/24 Relugolix [Orgovyx] 120 mg PO DAILY 08/20/24 Vitamin D3/Vitamin K2 (Mk4) [K2 Plus D3 Tablet] 1 tab PO DAILY 08/20/24 glucosamine HCL [Glucosamine HCl] 750 mg PO BID 08/20/24 Physician Discharge Instructions: -DC IV and DC to inpatient hospice Diet: comfort Activity: Fall precautions Followup: Alok Purdy MD [Primary Care Provider] - Time spent managing pt's care (in minutes): 35
== END 2024-08-30 13:12 | disposition hospice, inpatient (51) | DRG 193 ==
LOC: ER 09:11 → ERHOLD 12:57 → 3RD-ICU 18:14
PROVIDERS: ADMIT Hospitalist; ATTEND Hospitalist
PROC: 4A033R1 Measurement of Arterial Saturation, Peripheral, Percutaneous Approach (ICD-10-PCS; principal; 2024-08-20)
PROC: 5A09557 Assistance with Respiratory Ventilation, Greater than 96 Consecutive Hours, Continuous Positive Airway Pressure (ICD-10-PCS; 2024-08-20)
PROC: 02HV33Z Insertion of Infusion Device into Superior Vena Cava, Percutaneous Approach (ICD-10-PCS; 2024-08-26)
PROC: 0T9B70Z Drainage of Bladder with Drainage Device, Via Natural or Artificial Opening (ICD-10-PCS; 2024-08-29)
DX: J18.9 Pneumonia, unspecified organism (principal); I50.31 Acute diastolic (congestive) heart failure; J80 Acute respiratory distress syndrome; Z68.41 Body mass index [BMI] 40.0-44.9, adult; C79.51 Secondary malignant neoplasm of bone; R64 Cachexia; I11.0 Hypertensive heart disease with heart failure; K74.60 Unspecified cirrhosis of liver; E03.9 Hypothyroidism, unspecified; F41.9 Anxiety disorder, unspecified; E66.9 Obesity, unspecified; I27.20 Pulmonary hypertension, unspecified; C61 Malignant neoplasm of prostate; D63.8 Anemia in other chronic diseases classified elsewhere; E88.09 Other disorders of plasma-protein metabolism, not elsewhere classified; S27.30 Unspecified injury of lung; Z51.5 Encounter for palliative care; Z88.8 Allergy status to other drugs, medicaments and biological substances; Z79.52 Long term (current) use of systemic steroids; Z79.82 Long term (current) use of aspirin; Z79.890 Hormone replacement therapy; Z79.899 Other long term (current) drug therapy; Z87.891 Personal history of nicotine dependence
CPT/HCPCS: 36415; 36569; 36600; 71045; 71250; 80048; 80053; 80076; 82805; 82947; 83605; 83735; 83880; 84100; 84484; 85025; 85610; 87040; 93005; 93306; 94010; 94640; 94660; 96365; 96367; 97110; 97161; 97530; 99285; J0692; J0696; J1650; J1940; J2270; J2405; J2919; J3370; J3480; J7030; J7040; J7060; J7512; J7613; J7644; P9047

== ENCOUNTER 2024-08-30 14:36 | Inpatient (IN) | payer OTHER ==
--- OUTSIDE RECORDS SUMMARY | 2024-08-30 14:42 | XMS REPORT | Clinical Summary ---
Author Name Unknown Organization [facility] Address [address] [place] [address] Care Team Providers Care Customer Service And Sales Consultant Name Role Phone Silverio Webster Unavailable [phone] Cody Perez MD Unavailable [phone] Maranda Perales MD Primary Care Provider + Felicia Avila MD Unavailable [phone] Bethany Amezcua MD Unavailable Dylan Sam MD Unavailable [phone] Allergies Active Allergy Reactions Criticality Noted Date [...] 30 tablet 3 08/02/19 25 8:23 AM HONEY LIQUEFIER 024 Active Additional Information Patient taking differently: [...] 120 tablet 3 08/02/19 25 8:23 AM HONEY LIQUEFIER 025 Active polyethylene glycol (Miralax) 17 gram/dose [...] organization. 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; Benign hypertension; Acquired hypothyroidism 08/15/2024 Travel 07/31/2024 Specialty Pharmacy [facility] AMB RX SPEC ACB [address] [place] [address] Candelario Zamora, PharmD Refill Coordination Outreach - darolutamide (Nubeqa), relugolix (Orgovyx) for Prostate Cancer 07/28/2024 Telephone [facility] - Oncology [address] [place] [address], 7th [place] [address] Cummins, Eileen Genetic Counseling (Follow up) 07/25/2024 10:30 AM HONEY LIQUEFIER Infusion [facility] - Infusion [address] [place] [address] Natasha Rey APRN Abarquez, Marlon Perceval O, RN Adenocarcinoma of prostate (Primary Dx) 07/25/2024 9:30 AM HONEY LIQUEFIER Follow-Up [facility] - Genitourinary Oncology [address] [place] [address] Natasha Rey APRN Adenocarcinoma of prostate (Primary Dx); Edema, not otherwise specified; 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; Benign hypertension; Obstructive sleep apnea syndrome; 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; Type 2 diabetes mellitus with hyperglycemia; Acquired hypothyroidism; Dyslipidemia; Elevation of levels of alanine transaminase (ALT); Fatigue; Nausea 07/25/2024 Orders Only [facility] - Oncology [address] [place] [address], 7th [place] [address] Maranda Perales MD 07/25/2024 Travel 07/20/2024 2:00 PM HONEY LIQUEFIER Telemedicine [facility] - Oncology [address] [place] [address], 7th [place] [address] Dylan Sam MD Adenocarcinoma of prostate 07/20/2024 Orders Only [facility] Oncology [address] [place] [address], 7th [place] [address] Eileen uCmmins Adenocarcinoma of prostate (Primary Dx) 07/14/[address] [address] Amadou Odonnell, RN 07/14/[address] [address] Amadou Odonnell, RN 07/06/2024 Orders Only [facility] Oncology [address] [place] [address], 7th Floor Elev[place], [place] [phone] Cristobal Easley MD Neoplasm related pain (acute) (chronic) 07/05/2024 Telephone MD [facility] [place] - Infusion [address] [place] [address] Vanesa Walsh, SALAS 07/05/2024 Specialty Pharmacy [facility] AMB RX SPEC ACB [address] [place] [address] Cynthia Vu, [facility] Refill Coordination Outreach - relugolix (Orgovyx) for Prostate Cancer 07/04/2024 11:00 AM HONEY LIQUEFIER Infusion MD [facility] [place] - Infusion [address] [place] [address] Natasha Rey APRN Mathews, Jacqueline, SALAS Adenocarcinoma of prostate (Primary Dx) 07/04/2024 10:30 AM HONEY LIQUEFIER [facility] On[facility] [address] [place] [address] Natasha Rey APRN Adenocarcinoma of prostate (Primary Dx); Nausea; Loss of appetite; 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 [place] [address] Maranda Perales MD 06/29/2024 Specialty Pharmacy [facility] AMB RX SPEC ACB [address] [place] [address] Yvonne Sun CPhT 06/28/2024 3:30 PM HONEY LIQUEFIER Telemedicine [facility] - Oncology [address] [place] [address], 7th [place] [address] Natasha Rey, Maranda Graham MD Adenocarcinoma of prostate (Primary Dx) 06/28/2024 10:00 AM HONEY LIQUEFIER [facility] [address] [place] [address], 9th [place] [address] Felicia Avila MD Neoplasm related pain (acute) (chronic) (Primary Dx); Metabolic syndrome 06/28/2024 8:47 AM HONEY LIQUEFIER - 06/28/2024 11:59 PM HONEY LIQUEFIER Hospital Encounter [facility] [address] [place] [address] Natasha Rey, VALERIE Adenocarcinoma of prostate; Elevation of levels of alanine transaminase (ALT) Discharge Disposition: Home 06/28/2024 Orders Only [facility] - Oncology [address] [place] [address], [address] [place] [address] [place] [address] Natasha Rey APRN 06/28/2024 Travel 06/22/2024 Orders Only [facility] Oncology [address] [place] [address], [address] [place] [address] Natasha Rey, VALERIE Elevation of levels of alanine transaminase (ALT) (Primary Dx) 06/21/[address] [address] Amadou Odonnell, RN 06/14/2024 Documentation [facility] [address] [place] [address], 9[facility] [place] [address] Kristy Stevenson, RN 06/01/2024 Specialty Pharmacy [facility] AMB RX SPEC ACB [address] [place] [address] Candelario Zamora, PharmD Refill Coordination Outreach - relugolix (Orgovyx) for Prostate Cancer 05/30/2024 10:00 AM HONEY LIQUEFIER Follow-Up [facility] - Genitourinary Oncology [address] [place] [address] Maranda Perales MD 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 (Primary Dx); Adenocarcinoma of prostate; Benign hypertension; 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; Acquired hypothyroidism; Dyslipidemia; Elevation of levels of alanine transaminase (ALT) 05/30/2024 Travel 05/17/2024 1:00 PM HONEY LIQUEFIER Ancillary Procedure [address] [address] Felicia Avila MD Metabolic syndrome 05/17/2024 Documentation [facility] [address] [place] [address], 9th [place] [address] Kristy Stevenson RN 05/17/2024 Travel 05/11/2024 9:00 AM HONEY LIQUEFIER Ancillary Procedure [address] [address] Adenocarcinoma of prostate 05/11/2024 Travel 05/10/2024 3:00 PM HONEY LIQUEFIER Consult [facility] [address] [place] [address], 9th [place] [address] Felicia Avila MD Metabolic syndrome (Primary Dx); Adenocarcinoma of prostate 05/10/2024 Travel 05/08/2024 Specialty Pharmacy [facility] AMB RX SPEC ACB [address] [place] [address] Candelario Zamora, PharmD Set up Initial Fill for Prostate Cancer, Benefits Investigation for Prostate Cancer 05/03/[address] [address] Amadou Odonnell, RN 05/02/2024 10:00 AM HONEY LIQUEFIER [facility] [address] [place] [address] Maranda Perales MD Adenocarcinoma of prostate (Primary Dx); Benign hypertension; Obstructive sleep apnea syndrome; Acquired hypothyroidism; Elevation of levels of alanine transaminase (ALT); 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; Serum creatinine above reference range; Dyslipidemia; 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 05/02/2024 8:30 AM HONEY LIQUEFIER NPR [facility] PATIENT ACCESS Maranda Perales MD 05/02/2024 Travel 04/19/2024 Orders Only [facility] - Oncology [address] [facility], 7th [place] [address] Natasha Rey, TURF AND GROUNDS SUPERVISOR Adenocarcinoma of prostate (Primary Dx) 04/19/2024 Orders Only [facility] - Oncology [address] [facility], 7th [place] [address] Natasha Rey, TUR[employer] AND GROUNDS SUPERVISOR 03/21/2024 1:55 AM CDT Ancillary Procedure [facility] [address] [place] [address] Maranda Perales MD Cancer 03/01/2024 Lab Requisition [facility] Juan Francisco Herrera MD [place], Clary Griggs MD 02/28/2024 8:00 PM CDT Ancillary Procedure [facility] [address] [place] [address] Maranda Perales MD Cancer 02/17/2024 8:05 PM CDT Ancillary Procedure [facility] [address] [place] [address] Cancer 02/17/2024 8:00 PM CDT Ancillary Procedure [facility] [address] [place] [address] Cancer 02/16/2024 11:20 PM CDT Ancillary Procedure [facility] [address] [place] [address] Cancer after 08/31/2023 Immunizations Name Administration Dates Next Due Influenza, [...] thyroid gland 2020 Malignant neoplasm of prostate 2017 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 Interstitial lung disease du e to systemic disease Hypothyroidism Prediabetes Covid-19 Serum creatinine above reference range 4 Family History Medical History Relation Name Comments Lung cancer Maternal Grandfather History of smoking -Unknown cancer Paternal Cousin 1 Unknown age of diagnosis Breast cancer Paternal Cousin 2 Lymphoma Paternal Cousin 3 Non-Hodgki ns, lawsuit against [place] Prostate cancer Paternal Cousin 3 Relation Name [...] Care Team (Late st Contact Info) Description 09/05/2024 9:00 AM CDT Lab MD [facility] [place] [facility] [address] [address] Maranda Perales MD [address] [place] [address] [email or web address] 09/05/2024 10:00 AM CDT Follow-Up MD [facility] - Genitourinary Oncology [address] [place] [address] Maranda Perales MD [address] [place] [address] [email or web address] 09/05/2024 11:00 AM CDT Infusion MD [facility] - Infusion [address] [place] [address] Maranda Perales MD [address] [place] [address] [email or web address] Health Maintenance Due Date Last Done Comments [...] of prostate .CBC Routine 07/25/2024 8:19 AM HONEY LIQUEFIER Adenocarcinoma of prostate ZINVITAE Routine 07/25/2024 8:19 AM HONEY LIQUEFIER Adenocarcinoma of prostate PROSTATE SPECIFIC ANTIGEN Routine 07/25/2024 8:19 AM HONEY LIQUEFIER Adenocarcinoma of prostate LACTATE DEHYDROGENASE Routine 07/25/2024 8:19 AM HONEY LIQUEFIER Adenocarcinoma of prostate PHOSPHORUS LEVEL Routine 07/25/2024 8:19 AM HONEY LIQUEFIER Adenocarcinoma of prostate MAGNESIUM LEVEL Routine 07/25/2024 8:19 AM HONEY LIQUEFIER Adenocarcinoma of prostate COMPLETE BLOOD COUNT W/ DIFFERENTIAL Routine 07/25/2024 8:19 AM HONEY LIQUEFIER Adenocarcinoma of prostate COMPREHENSIVE METABOLIC PANEL Routine 07/25/2024 8:19 AM HONEY LIQUEFIER Adenocarcinoma of prostate .CBC Routine 07/04/2024 9:17 AM HONEY LIQUEFIER Adenocarcinoma of prostate AMYLASE LEVEL Routine 07/04/2024 9:17 AM HONEY LIQUEFIER Adenocarcinoma of prostate LIPASE LEVEL Routine 07/04/2024 9:17 AM HONEY LIQUEFIER Adenocarcinoma of prostate TESTOSTERONE LEVEL Routine 07/04/2024 9: 17 AM HONEY LIQUEFIER Adenocarcinoma of prostate PROSTATE SPECIFIC ANTIGEN Routine 07/04/2024 9:17 AM HONEY LIQUEFIER Adenocarcinoma of prostate PHOSPHORUS LEVEL Routine 07/04/2024 9:17 AM HONEY LIQUEFIER Adenocarcinoma of prostate MAGNESIUM LEVEL Routine 07/04/2024 9:17 AM HONEY LIQUEFIER Adenocarcinoma of prostate COMPREHENSIVE METABOLIC PANEL Routine 07/04/2024 9:17 AM HONEY LIQUEFIER Adenocarcinoma of prostate COMPLETE BLOOD COUNT W/ DIFFERENTIAL Routine 07/04/2024 9:17 AM HONEY LIQUEFIER Adenocarcinoma of prostate .CBC Routine 06/28/2024 8:55 AM HONEY LIQUEFIER Adenocarcinoma of prostate LIPASE LEVEL Routine 06/28/2024 8:55 AM HONEY LIQUEFIER Elevation of levels of alanine transaminase (ALT) AMYLASE LEVEL Routine 06/28/2024 8:55 AM HONEY LIQUEFIER Elevation of levels of alanine transaminase (ALT) TESTOSTERONE LEVEL Routine 06/28/2024 8: 55 AM HONEY LIQUEFIER Adenocarcinoma of prostate PROSTATE SPECIFIC ANTIGEN Routine 06/28/2024 8:55 AM HONEY LIQUEFIER Adenocarcinoma of prostate PHOSPHORUS LEVEL Routine 06/28/2024 8:55 AM HONEY LIQUEFIER Adenocarcinoma of prostate MAGNESIUM LEVEL Routine 06/28/2024 8:55 AM HONEY LIQUEFIER Adenocarcinoma of prostate COMPREHENSIVE METABOLIC PANEL Routine 06/28/2024 8:55 AM HONEY LIQUEFIER Adenocarcinoma of prostate COMPLETE BLOOD COUNT W/ DIFFERENTIAL Routine 06/28/2024 8:55 AM HONEY LIQUEFIER Adenocarcinoma of prostate .CBC Routine 05/30/2024 8:34 AM HONEY LIQUEFIER Adenocarcinoma of prostate TESTOSTERONE LEVEL Routine 05/30/2024 8: 34 AM HONEY LIQUEFIER Adenocarcinoma of prostate PROSTATE SPECIFIC ANTIGEN Routine 05/30/2024 8:34 AM HONEY LIQUEFIER Adenocarcinoma of prostate PHOSPHORUS LEVEL Routine 05/30/2024 8:34 AM HONEY LIQUEFIER Adenocarcinoma of prostate MAGNESIUM LEVEL Routine 05/30/2024 8:34 AM HONEY LIQUEFIER Adenocarcinoma of prostate COMPREHENSIVE METABOLIC PANEL Routine 05/30/2024 8:34 AM HONEY LIQUEFIER Adenocarcinoma of prostate COMPLETE BLOOD COUNT W/ DIFFERENTIAL Routine 05/30/2024 8:34 AM HONEY LIQUEFIER Adenocarcinoma of prostate US LIVER Routine 05/17/2024 1:58 PM HONEY LIQUEFIER Metabolic syndrome US LIVER ELASTOGRAPHY Routine 05/17/2024 1:58 PM HONEY LIQUEFIER Metabolic syndrome PETCT F18 PSMA PYL (PIFLUFOLASTAT) WITH CONTRAST Routine 05/11/2024 10:57 AM HONEY LIQUEFIER Adenocarcinoma of prostate .CBC Routine 05/02/2024 8:41 AM HONEY LIQUEFIER Adenocarcinoma of prostate VITAMIN D 25 HYDROXY LEVEL Routine 05/02/2024 8:41 AM HONEY LIQUEFIER Adenocarcinoma of prostate THYROID STIMULATING HORMONE Routine 05/02/2024 8:41 AM HONEY LIQUEFIER Adenocarcinoma of prostate TESTOSTERONE LEVEL Routine 05/02/2024 8: 41 AM HONEY LIQUEFIER Adenocarcinoma of prostate PROSTATE SPECIFIC ANTIGEN Routine 05/02/2024 8:41 AM HONEY LIQUEFIER Adenocarcinoma of prostate PHOSPHORUS LEVEL Routine 05/02/2024 8:41 AM HONEY LIQUEFIER Adenocarcinoma of prostate MAGNESIUM LEVEL Routine 05/02/2024 8:41 AM HONEY LIQUEFIER Adenocarcinoma of prostate LIPID PANEL Routine 05/02/2024 8:41 AM HONEY LIQUEFIER Adenocarcinoma of prostate LACTATE DEHYDROGENASE Routine 05/02/2024 8:41 AM HONEY LIQUEFIER Adenocarcinoma of prostate HEMOGLOBIN A1C Routine 05/02/2024 8:41 AM HONEY LIQUEFIER Adenocarcinoma of prostate COMPREHENSIVE METABOLIC PANEL Routine 05/02/2024 8:41 AM HONEY LIQUEFIER Adenocarcinoma of prostate COMPLETE BLOOD COUNT W/ DIFFERENTIAL Routine 05/02/2024 8:41 AM HONEY LIQUEFIER Adenocarcinoma of prostate OSI CT ABDOMEN AND PELVIS Routine 02/24/2024 2:29 AM CDT Cancer OSI PET CT SKULL TO MID THIGH Routine 01/14/2024 1:08 PM CDT Cancer after 08/31/2023 Results * (ABNORMAL) .CBC (08/15/2024 8:58 AM CDT) Only the most recent of6 resultswithin the time period is included. White Blood Cell 9.3 4.1 - 10.5 K/uL 08/15/2024 9:07 AM [facility] Red Blood Cell 4.22(L) 4.30 - 6.04 M/uL 08/15/2024 9:07 AM [facility] Hemoglobin 13.3 13.3 - 17.4 g/dL 08/15/2024 9:07 AM [facility] Hematocrit 39.7 39.5 - 51.8 % 08/15/2024 9:07 AM [facility] Mean Cell Volume 94 82 - 99 fL 08/15/2024 9:07 AM [facility] Mean Cell Hemoglobin 31.5 26.6 - 33.2 pg 08/15/2024 9:07 AM [facility] Mean Cell Hemoglobin Concentration 33.5 31.1 - 35.2 g/dL 08/15/2024 9:07 AM [facility] RDW-SD 51.0(H) 37.5 - 49.7 fL 08/15/2024 9:07 AM [facility] Red Cell Diameter Width 14.6 11.6 - 15.5 % 08/15/2024 9:07 AM [facility] Platelet 221 160 - 397 K/uL 08/15/2024 9:07 AM [facility] Mean Platelet Volume 10.5 9.1 - 12.6 fL 08/15/2024 9:07 AM [facility] Neutrophil % 81.7(H) 43.2 - 72.7 % 08/15/2024 9:07 AM [facility] Lymphocyte % 7.9(L) 16.8 - 46.2 % 08/15/2024 9:07 AM [facility] Monocyte % 6.4 5.1 - 12.5 % 08/15/2024 9:07 AM [facility] Eosinophil % 2.4 0.4 - 6.3 % 08/15/2024 9:07 AM [facility] Basophil % 0.4 0.2 - 1.4 % 08/15/2024 9:07 AM [facility] IGRE % 1.2 0.1 - 1.5 % 08/15/2024 9:07 AM [facility] Comment:The IGRE% includes M etamyelocytes, Myelocytes and Promyelocytes. Neutrophil Abs 7.63(H) 1.95 - 7.25 K/uL 08/15/2024 9:07 AM [facility] Lymphocyte Abs 0.74(L) 1.01 - 3.24 K/uL 08/15/2024 9:07 AM [facility] Monocyte Abs 0.60 0.24 - 0.85 K/uL 08/15/2024 9:07 AM [facility] Eosinophil Abs 0.22 0.02 - 0.50 K/uL 08/15/2024 9:07 AM [facility] Basophil Abs 0.04 0.02 - 0.09 K/uL 08/15/2024 9:07 AM [facility] IG Abs 0.11 0.01 - 0.12 K/uL 08/15/2024 9:07 AM CDT [place] Blood Peripheral blood specimen / Unknown Venipuncture / Unknown 08/15/2024 8:58 AM CDT 08/15/2024 8:59 AM CDT us Natasha Rey T[employer] AND GROUNDS SUPERVISOR LAB BLOOD ORDERABLE S Final Result [facility] [place] [address] [facility], [facility] [address] [place] [address] * (ABNORMAL) Comprehensive Metabolic Panel (08/15/2024 8:58 AM CDT) Only the most recent of6 resultswithin the time period is included. Bilirubin Total 0.7 0.0 - 1.2 mg/dL 08/15/2024 9:27 AM [facility] Comment:Indocyanine Green (I CG) may cause falsely elevated bilirubin results. Total and direct bilirubin must not be measured from samples containing indocyanine green. False elevation of total bilirubin can be seen in patients with IgG concentrations above 28 g/L. eGFR 71 >=60 mL/min/1. 73 sq. m 08/15/2024 9:27 AM [facility] Comment: The eGFRcr is calculated with the 2020 CKD-EPI creatinine equation using creatinine, patient's age, [...] 6.4 - 8.3 gm/dL 08/15/2024 9:27 AM [facility] Calcium Level Total 9.3 8.2 - 10.2 mg/dL 08/15/2024 9:27 AM [facility] Alkaline Phosphatase 420(H) 40 - 129 U/L 08/15/2024 9:27 AM [facility] Albumin Level 3.8 3.5 - 5.2 gm/dL 08/15/2024 9:27 AM [facility] AST 37 <=40 U/L 08/15/2024 9:27 AM [facility] ALT 33 <=41 U/L 08/15/2024 9:27 AM [facility] Sodium Level 134(L) 136 - 145 mmol/L 08/15/2024 9:27 AM [facility] Potassium Level 4.2 3.4 - 4.5 mmol/L 08/15/2024 9:27 AM [facility] Chloride 96(L) 98 - 107 mmol/L 08/15/2024 9:27 AM [facility] CO2 28 22 - 29 mmol/L 08/15/2024 9:27 AM [facility] Anion Gap 10 4 - 14 mmol/L 08/15/2024 9:27 AM [facility] Creatinine 1.08 0.67 - 1.17 mg/dL 08/15/2024 9:27 AM [facility] BUN 19 6 - 23 mg/dL 08/15/2024 9:27 AM [facility] Glucose Level 114(H) 70 - 99 mg/dL 08/15/2024 9:27 AM [facility] Comment: Effective 12/25/15, the glucose reference intervals have been updated based on [place] [employer] guidelines (Standards of Medical Care [...] CDT 08/15/2024 8:59 AM CDT Natasha Rey [employer] SUPERVISOR LAB BLOOD ORDERABLE S Final Result [address] [address] * (ABNORMAL) Testosterone (08/15/2024 8:58 AM CDT) Only the most recent of5 resultswithin the time period is included. Testosterone Total 25(L) 193 - 740 ng/dL 08/15/2024 9:52 AM CDT [place] Blood Peripheral blood specimen / Unknown Venipuncture / Unknown 08/15/2024 8:58 AM CDT 08/15/2024 8:59 AM CDT Natasha Rey [employer] SUPERVISOR LAB BLOOD ORDERABLE S Final Result [address] [address] * Prostate Specific Antigen (PSA) Diagnostic (08/15/2024 8:58 AM CDT) Only the most recent of6 resultswithin the time period is included. Prostate Specific Antigen 1.2 <=4.0 ng/mL 08/15/2024 9:52 AM CDT [place] PSA Indication Diagnostic 08/15/2024 9:52 AM CDT [place] Blood Peripheral blood specimen / Unknown Venipuncture / Unknown 08/15/2024 8:58 AM CDT 08/15/2024 8:59 AM CDT [facility] [place] - 08/15/2024 9:52 AM CDT The assay [...] with extended dilution as it exceeds the maintenance advisor's recommended limit. Caution should be exercised when interpreting such values and done in conjunction with clinical context. This test is measured by electrochemiluminescence immunoassay on Devin Rhina immunoassay analyzers. Results obtained in different methods are not interchangeable. Natasha Rey APRN LAB BLOOD ORDERABLE S Final Result Performing Organization Address [facility] Co de Phone Number [address], [address] [address] * Phosphorus (08/15/2024 8:58 AM CDT) Only the most recent of6 resultswithin the time period is included. Phosphorus Level 2.9 2.5 - 4.5 mg/dL 08/15/2024 9:27 AM CDT [place] Blood Peripheral blood specimen / Unknown Venipuncture / Unknown 08/15/2024 8:58 AM CDT 08/15/2024 8:59 AM CDT Natasha Rey APRN LAB BLOOD ORDERABLE S Final Result Performing Organization Address [facility] de Phone Number [address], [address] [address] * Magnesium (08/15/2024 8:58 AM CDT) Only the most recent of6 resultswithin the time period is included. Magnesium Level 2.3 1.6 - 2.6 mg/dL 08/15/2024 9:27 AM CDT [place] Blood Peripheral blood specimen / Unknown Venipuncture / Unknown 08/15/2024 8:58 AM CDT 08/15/2024 8:59 AM CDT Natasha Rey APRN LAB BLOOD ORDERABLE S Final Result Performing Organization Address [facility]/State/ZIP Co de Phone Number [address], [facility] [address] [place] [address] * (ABNORMAL) Lactate dehydrogenase (08/15/2024 8:58 AM CDT) Only the most recent of3 resultswithin the time period is included. [facility] LDH 417(H) 135 - 225 U/L 08/15/2024 9:27 AM CDT [place] Blood Peripheral blood specimen / Unknown Venipuncture / Unknown 08/15/2024 8:58 AM CDT 08/15/2024 8:59 AM CDT Narrative [place] - 08/15/2024 9:27 AM CDT Results greater than 1651 U/L may not be reliable due to matrix effect with extended dilution as it exceeds the maintenance advisor's recommended limit. Caution should be exercised when interpreting such values and done in conjunction with clinical context. us Natasha Rey APRN LAB BLOOD ORDERABLE S Final Result Performing Organization Address [facility]/ZIP Co de Phone Number [address], [facility] [address] [place] [address] * ZINVITAE (07/25/2024 8:19 AM HONEY LIQUEFIER) [facility] ZINVITAE See Note 07/31/2024 7:12 AM HONEY LIQUEFIER [facility] Comment:Specimen for Genetic testing was obtained, processed and sent out to the Performing Reference Laboratory. Refer to the performing lab for results. Blood Peripheral blood specimen / Unknown Venipuncture / Unknown 07/25/2024 8:19 AM [facility] 07/25/2024 8:19 AM HONEY LIQUEFIER us Dylan Sam MD LAB BLOOD ORDERABLES Final Re sult [facility] [address] [place] [address], [place] [phone] * Lipase Level (07/04/2024 9:17 AM HONEY LIQUEFIER) Only the most recent of2 resultswithin the time period is included. Lipase Level 38 13 - 60 U/L 07/04/2024 9:44 AM [facility]QUEFI[facility] [place] Blood Peripheral blood specimen / Unknown Venipuncture / Unknown 07/04/2024 9:17 AM HONEY LIQUEFIER 07/04/2024 9:17 AM HONEY LIQUEFIER Narrative [place] - 07/04/2024 9:44 AM [facility] Reference range established based on adult population Natasha Kristy Rey [employer] SUPERVISOR LAB BLOOD ORDERABLE S Final Result [address] [id number] [place] [address] * Amylase Level (07/04/2024 9:17 AM HONEY LIQUEFIER) Only the most recent of2 resultswithin the time period is included. Amylase Level 61 28 - 100 U/L 07/04/2024 9:44 AM [facility] [place] Blood Peripheral blood specimen / Unknown Venipuncture / Unknown 07/04/2024 9:17 AM [facility]ONE[facility] LIQUEFIER 07/04/2024 9:17 AM [facility]ER Natasha Kristy Rey APRN LAB BLOOD ORDERABLE S Final Result [address] [id number] [place] [address] * US Liver Elastography (05/17/2024 1:58 PM HONE[facility] LIQUEFIER) Anatomical Region Laterality Modality Abdomen Ultrasound 05/17/2024 3:41 PM HONE[facility] LIQUEFIER Impressions 05/17/2024 4:01 PM HONEY LIQUEFIER 1. Coarsened and heterogeneous echotexture of the [...] and potentially actionable. Narrative 05/17/2024 4:01 PM [facility] LIQUEFIER Examination: US LIVER, US LIVER ELASTOGRAPHY on [...] Result * US Liver (05/17/2024 1:58 PM HONEY LIQUEFIER) Anatomical Region Laterality Modality Abdomen Ultrasound 05/17/2024 3:41 PM [facility] LIQUEFIER Impressions 05/17/2024 4:01 PM [facility] LIQUEFIER 1. Coarsened and heterogeneous echotexture of the [...] and potentially actionable. Narrative 05/17/2024 4:01 PM HONEY LIQUEFIER Examination: US LIVER, US LIVER ELASTOGRAPHY on [...] PyL (Piflufolastat) with contrast (05/11/2024 10:57 AM HONEY LIQUEFIER) Anatomical Region Laterality Modality Whole Body Positron Emissio n Tomography (PET) 05/11/2024 4:33 PM HONEY LIQUEFIER Impressions 05/11/2024 4:53 PM [facility]ONE[facility] LIQUEFIER 1. Multiple PSMA - avid enlarged lymph [...] and potentially actionable. Narrative 05/11/2024 4:53 PM HONEY LIQUEFIER FULL RESULT: Examination: F-18 Piflufolastat/PSMA PyL PET/CT [...] via the left antecubital fossa. Following an [id number] minute delay, PET/CT imaging was performed from [...] * Vitamin D 25OH (05/02/2024 8:41 AM HONEY LIQUEFIER) Vitamin D 25 OH 49 30 - 100 ng/mL 05/02/2024 9:[address] [facility] Blood Peripheral blood specimen / Unknown Venipuncture / Unknown 05/02/2024 8:41 AM HONEY LIQUEFIER 05/02/2024 8:41 AM HONEY LIQUEFIER Narrative [place] - 05/02/2024 9:32 AM HONEY LIQUEFIER Reference Range: Deficiency: <=20 ng/mL Insufficiency: 21-29 ng/mL Sufficiency: 30-100 ng/mL Potential toxicity: >100 ng/mL Result [facility] [place] Natasha Rey APRN LAB BLOOD ORDERABLE S Final Result Performing Organization Address [facility]/State/ZIP Co de Phone Number [facility] [place] [address] [facility], [facility] [address] [place] [address] * TSH (05/02/2024 8:41 AM HONEY LIQUEFIER) Thyroid Stimulating Hormone 3.69 0.27 - 4.20 mcunit/mL 05/02/2024 9:[address] [facility] Blood Peripheral blood specimen / Unknown Venipuncture / Unknown 05/02/2024 8:41 AM HONEY LIQUEFIER 05/02/2024 8:41 AM HONEY LIQUEFIER Result [facility] [place] Natasha Kristy Rey [employer] SUPERVISOR LAB BLOOD ORDERABLE S Final Result [address], [facility] [address] [place] [address] * (ABNORMAL) Hemoglobin A1c (05/02/2024 8:41 AM HONEY LIQUEFIER) Hemoglobin A1c 5.8(H) 4.3 - 5.6 % 05/02/2024 9:[address] [facility] Blood Peripheral blood specimen / Unknown Venipuncture / Unknown 05/02/2024 8:41 AM [facility] 05/02/2024 8:41 AM [facility] - 05/02/2024 9:00 AM [facility] HbA1c values >=6.5% are diagnostic of diabetes mellitus. Diagnosis should be confirmed by repeat testing. Therapeutic Action suggested: >8.0% HbA1c; Goal of therapy: <7.0% HbA1c Natasha Kristy Krissy [employer] SUPERVISOR LAB BLOOD ORDERABLE S Final Result Performing Organization Address [facility]/ZIP Co de Phone Number [address], [facility] [address] [place] [address] * (ABNORMAL) Lipid Panel (05/02/2024 8:41 AM HONEY LIQUEFIER) Cholesterol Total 173 <200 mg/dL 05/02/2024 9:[address] [facility] Comment: ATP III Classification of Total Cholesterol - Primary Target of Therapy (in mg/dL): <200 Desirable 200-239 Borderline high >=240 High Triglyceride 135 <150 mg/dL 05/02/2024 9:[address] [facility] Comment: ATP III Classification of Serum Triglycerides Primary Target of Therapy (in mg/dL): <150 Normal 150-199 Borderline high 200-499 High >=500 Very high Non-fasting triglycerides >200 mg/dL may be followed up with a fasting Lipid Panel. Calculated LDL-C may be falsely decreased when non-fasting triglycerides >200 mg/dL. HDL Cholesterol 43 >=40 mg/dL 05/02/2024 9:[address] [facility] LDL Cholesterol 103(H) <=100 mg/dL 05/02/2024 9:14 AM HONEY LIQUEFIER [place] Comment: ATP III Classification of LDL Cholesterol Primary Target of Therapy (in mg/dL): <100 Optimal 100-129 Near optimal/above optimal 130-159 Borderline high 160-189 High >=190 Very high Very Low Density Lipoprotein 27 mg/dL 05/02/2024 9:14 AM HONEY LIQUEFIER [place] Is patient fasting? Yes 05/02 9:14 AM HONEY LIQUEFIER [place] Blood Peripheral blood specimen / Unknown Venipuncture / Unknown 05/02/2024 8:41 AM HONEY LIQUEFIER 05/02/2024 8:41 AM HONEY LIQUEFIER us Natasha Rey [employer] SUPERVISOR LAB BLOOD ORDERABLE S Final Result [facility] [address] [facility], [facility] [address] [place] [address] * OSI CT Abdomen and Pelvis (02/24/2024 2:29 AM CDT) Narrative Systemgenerated, Documentation - 03/21/2024 2:29 AM CDT Study acquired at another institution. For comparison only. No [facility] originated interpretation requested or available. us Maranda Perales MD IMG OUTSIDE IMAGE ORDERA BLES Final Result * OSI PET CT Skull to Mid Thigh (01/14/2024 1:08 PM CDT) Narrative Systemgenerated, Documentation - 02/29/2024 1:08 PM CDT Study acquired at another institution. For comparison only. No [facility] originated interpretation requested or available. Maranda Perales MD IMG OUTSIDE IMAGE ORDERA BLES Final Result after 08/31/2023 Insurance [facility] MEDICARE ADVANTAGE [employer] UHC MEDICARE ADVANTAGE Advance Directives Documents on File Type Date Recorded Patient Online Marketing Specialist Expl anation Advance Directives: Living Will 07/05/2024 Directive to Physici ans and Family or Surrogates-Living Will Care Teams Customer Service And Sales Consultant Relationship Specialty Start Date End Date Silverio Webster PA [address] [place] [address] PCP - External Primary Care Provider Family Practice 02/03/24 Cody Perez MD [address] [place] [address] [email or web address] PCP - External Follow Up A Radiation Oncology 02/03/24 Maranda Perales MD [address] [place] [phone] [email or web address] PCP - General Genitourinary Oncology 02/17/24 Felicia Avila MD [address] [place] [address] [phone] [email or web address] Consulting Physician Internal Medicine 05/10/24 Bethany Amezcua MD [address] [place] [address] [phone] [email or web address] Consulting Physician Supportive Care 07/11/24 Dylan Sam MD [address] [place] [address] [phone] [email or web address] Consulting Physician Genitourinary Oncology 07/20/24
[2024-08-30 15:00] VITALS: BMI 42.5
[2024-08-30] MEDS ORDERED: BISACODYL 10 MG RECTAL SUPP PR PRN (15:13)
[2024-08-30] MEDS: HYDROMORPHONE HCL 1 MG/ML INJ IV SCH (15:31)
[2024-08-30 15:37] VITALS: O2SAT 92
[2024-08-30] MEDS: LORazepam 2 MG/ML VIAL IV SCH (16:03)
[2024-08-30] MEDS: SCOPOLAMINE HYDROBROMIDE PATCH TD SCH (16:28)
--- NOTE | 2024-08-30 18:00 | P.HP ---
Patient History Date of Service: 08/30/24 Reason for admission: RESPIRATORY FAILURE History of Present Illness: LISA IS ADMITTED FOR RESPIRATORY FAILURE SECONDARY TO DECONDITIONING FROM ADVANCED PROSTATE CANCER. FAMILY ASKED FOR GIP PATIENT IS NOT BETTER AND IS SUFFERING FORM PAIN AND DYSPNEA. Allergies hydrochlorothiazide Allergy (Mild, Verified 08/20/24 19:51) Hives/Rash Home medications list reviewed: Yes Home Medications: Amlodipine [Norvasc*] 5 mg PO DAILY 08/20/24 Aspirin 81 mg PO DAILY 08/20/24 Darolutamide [Nubeqa] 2 tab PO BID 08/20/24 Furosemide 40 mg PO DAILY 08/20/24 Gabapentin 300 mg PO BEDTIME PRN 08/20/24 Hydrocodone 10/APAP 325 [[place] 10/325*] 1 tab PO Q6H PRN 08/20/24 Levothyroxine [Synthroid*] 88 mcg PO DAILY 08/20/24 Losartan Potassium 100 mg PO DAILY 08/20/24 Metoprolol Tartrate 25 mg PO DAILY 08/20/24 Olanzapine [Zyprexa] 5 mg PO BEDTIME 08/20/24 Polyethylene Glycol 3350 [Miralax] 17 gm PO DAILY 08/20/24 Prednisone [Nick] 5 mg PO DAILY 08/20/24 Relugolix [Orgovyx] 120 mg PO DAILY 08/20/24 Vitamin D3/Vitamin K2 (Mk4) [K2 Plus D3 Tablet] 1 tab PO DAILY 08/20/24 glucosamine HCL [Glucosamine HCl] 750 mg PO BID 08/20/24 - Past Medical/Surgical History Has patient received pneumonia vaccine in the past: Yes Diabetic: No -: Metastatic prostate cancer -: Congestive heart failure -: HTN -: Hypothyroidism - Social History Smoking Status: Former smoker Alcohol use: No CD- Drugs: No Caffeine use: No Place of Residence: Home Review of Systems 10-point ROS is otherwise unremarkable General: As per HPI Respiratory: Shortness of Breath, As per HPI Physical Examination - Vital Signs Temperature: 97.1 F Blood Pressure: 112/77 Pulse: 103 Respirations: 18 Pulse Ox (%): 94 - Physical Exam General: Cachectic, Moderate distress Respiratory: Diminished, Crackles/rales Cardiovascular: Normal S1 S2 Assessment and Plan - Problems (Diagnosis) (1) Acute hypoxic respiratory failure Current Visit: No Status: Acute Plan: HE HAS PULMONARY EDEMA. GENERALIZED ANASARCA WITH HYPOALBUMINEMIA FROM ADVANCED CANCER. CONT MORPHINE OR DILAUDID SCHEDULED. (2) Prostate cancer metastatic to bone Current Visit: No Status: Chronic Plan: TERMINAL CONIDITION FROM DECONDITIONING. HE WILL BE KEPT COMFORTABLE WITH HOSPICE PROTOCOLS. - Advance Directives Does patient have a Living Will: Yes Does patient have a Durable POA for Healthcare: Yes
[2024-08-30 20:19] VITALS: BP 118/75; TEMP 98
[2024-08-30] MEDS: LORazepam 2 MG/ML VIAL IV PRN (21:58)
[2024-08-30] MEDS: HYDROMORPHONE HCL 1 MG/ML INJ IV PRN (21:59)
[2024-08-31] MEDS ORDERED: LORazepam 2 MG/ML VIAL IV PRN (10:53)
[2024-08-31] MEDS ORDERED: HYDROMORPHONE HCL 1 MG/ML INJ IV PRN (10:53)
--- NOTE | 2024-09-02 13:41 | P.DS ---
Admission Date: 08/30/24 Discharge Date: 09/02/24 Disposition: Discharge Condition: Reason for Admission: RESPIRATORY FAILURE - Problems (1) Acute hypoxic respiratory failure Status: Acute (2) Prostate cancer metastatic to bone Status: Chronic Brief History of Present Illness: LISA IS ADMITTED FOR RESPIRATORY FAILURE SECONDARY TO DECONDITIONING FROM ADVANCED PROSTATE CANCER. FAMILY ASKED FOR GIP PATIENT IS NOT BETTER AND IS SUFFERING FORM PAIN AND DYSPNEA. Hospital Course: LISA HAD CARDIORESPIRATORY FAILURE FROM CHF AND STAGE 4 PROSTATE CANCER. HE EXPECTED ON HOSPICE IN ABOUT A DAY. HE WAS KEPT COMFORTABLE WITH HOSPICE PROTOCOL. Vital Signs/Physical Exam: Temp Pulse Resp BP Pulse Ox 98 F 127 H 26 H 118/75 94 08/30/24 20:00 08/31/24 08:00 08/31/24 10:12 08/30/24 20:00 08/31/24 10:12 Home Medications: Amlodipine [Norvasc*] 5 mg PO DAILY 08/20/24 Aspirin 81 mg PO DAILY 08/20/24 Darolutamide [Nubeqa] 2 tab PO BID 08/20/24 Furosemide 40 mg PO DAILY 08/20/24 Gabapentin 300 mg PO BEDTIME PRN 08/20/24 Hydrocodone 10/APAP 325 [[place] 10/325*] 1 tab PO Q6H PRN 08/20/24 Levothyroxine [Synthroid*] 88 mcg PO DAILY 08/20/24 Losartan Potassium 100 mg PO DAILY 08/20/24 Metoprolol Tartrate 25 mg PO DAILY 08/20/24 Olanzapine [Zyprexa] 5 mg PO BEDTIME 08/20/24 Polyethylene Glycol 3350 [Miralax] 17 gm PO DAILY 08/20/24 Prednisone [Nick] 5 mg PO DAILY 08/20/24 Relugolix [Orgovyx] 120 mg PO DAILY 08/20/24 Vitamin D3/Vitamin K2 (Mk4) [K2 Plus D3 Tablet] 1 tab PO DAILY 08/20/24 glucosamine HCL [Glucosamine HCl] 750 mg PO BID 08/20/24 Followup: Hemant Christianson MD [Primary Care Provider] -
== END 2024-08-31 11:56 | disposition expired | DRG 951 ==
LOC: 3RD-ICU 14:36
PROVIDERS: ADMIT Internal Medicine; ATTEND Internal Medicine
DX: Z51.5 Encounter for palliative care (principal)
CPT/HCPCS: J1171